=== PATIENT | female | born 1925 | race Caucasian/White ===

== ENCOUNTER 2016-04-29 11:17 | Emergency (ER) | payer MEDICARE ==
[~2016-04-29] VITALS: Ht 157.5 cm; Wt 56.0 kg
[~2016-04-29 11:17] MED LIST: ALPR.5 PO; ASPI325T TUBE; CARV3.12 PO; CELE20TA PO; CHERSYP2 PO; LEVO100T5 PO; LIPI10TA PO; PRED10 PO; TELM20 PO; TRAM50TA PO; VENTAER INH
[2016-04-29 12:09] VITALS: BP 162/87; PULSE 77; RESP 20; TEMP 99; O2SAT 94
[2016-04-29] MEDS ORDERED: ALBU.5I NEB (12:16)
--- NOTE | 2016-04-29 12:27 | PD ---
HPI Chief Complaint: Respiratory Symptoms Time Seen by Provider: 12:13 Travel History International Travel<30 days: No Contact w/Intl Traveler<30days: No Traveled to known affect area: No History of Present Illness HPI The patient is a 89-year-old female who presents to the emergency department for shortness of breath. The patient's family member states the patient has had shortness of breath intermittently since Thanksgiving time. The patient has been seen in the emergency department twice for her congestive heart failure and COPD. The patient is currently on prednisone 40 mg a day with nebulizers at home. The daughter stated there was mild swelling of the lower extremities bilaterally this morning and was concerned about the patient' s breathing. The family member states when the patient awakened this morning she was short of breath, she was then given her prednisone and nebulizers, and her shortness of breath did improve after 2 hours of duration. They called their load dispatcher several days ago and were prescribed Lasix 40 mg per day, however, the daughter was unsure if this was the correct dose. The patient does have a history of CHF and COPD and sees Dr. Carranza as her load dispatcher and Dr. Balbuena as her jewel hole driller. The patient states her breathing has improved, denies any chest pain, nausea, vomiting, or abdominal pain. PFSH Past Medical History Hx Anticoagulant Therapy: Yes (asa 81mg) Depression: Yes Cancer: No Cardiovascular Problems: Yes (htn on meds) COPD: Yes Diabetes: No Diminished Hearing: No Endocrine: Yes Gastrointestinal Disorders: No Glaucoma: No Genitourinary: No Hepatitis: No Hiatal Hernia: No Hypertension: Yes Implanted Vascular Access Dvce: No Medical other: Yes (SINUSITIS) Musculoskeletal: No Neurologic: No Psychiatric: Yes Reproductive: No Respiratory: Yes (copd, chf) Immunizations Current: Yes Pneumonia: Yes Thyroid Disease: Yes (Hypo-) ?: Not Menopausal: Yes Past Surgical History Abdominal Surgery: No Cardiac Surgery: No Ear Surgery: No Endocrine Surgery: No Eye Surgery: Yes Genitourinary Surgery: No Gynecologic Surgery: No Neurologic Surgery: No Oral Surgery: No Pacemaker: No Thoracic Surgery: Yes (thoracentesis) Other Surgery: Yes Social History Alcohol Use: No (Rarely) Tobacco Use: No Substance Use: No Allergies-Medications (Allergen,Severity, Reaction): Coded Allergies: No Known Allergies (Verified , 04/29/16) Reported Meds & Prescriptions Reported Meds & Active Scripts Active Aspirin 325 Mg Tab 325 Mg TUBE DAILY Reported Albuterol Neb (Albuterol Sulfate) 2.5 Mg/0.5 Ml Neb 2.5 Mg NEB Q4HR NEB PRN Note: The Albuterol Sulfate Inhalation Solution is concentrated and must be diluted. Read complete instructions carefully before using. Carvedilol 3.125 Mg Tab 3.125 Mg PO DAILY PRN Lipitor (Atorvastatin Calcium) 10 Mg Tab 10 Mg PO DAILY Cheratussin AC Liq (Guaifenesin-Codeine Liq) 100-10 Mg/5 Ml Syrp 5 Ml PO Q4H PRN Do not exceed 6 doses/24 hrs. Tramadol (Tramadol HCl) 50 Mg Tab 50 Mg PO Q4H PRN Xanax (Alprazolam) 0.5 Mg Tab 0.5 Mg PO Q6H PRN Ventolin Hfa 18 GM Inh (Albuterol Sulfate) 90 Mcg/Act Aer 2 Puff INH Q4-6H PRN Prednisone 10 Mg Tab 10 Mg PO DAILY Levothyroxine (Levothyroxine Sodium) 100 Mcg Tab 100 Mcg PO DAILY Celexa (Citalopram Hydrobromide) 20 Mg Tab 20 Mg PO DAILY Micardis (Telmisartan) 20 Mg Tab 12.5 Mg PO DAILY Review of Systems Except as stated in HPI: all other systems reviewed are Neg General / Constitutional: No: Fever, Chills HENT: No: Lightheadedness Cardiovascular: No: Chest Pain or Discomfort Respiratory: Positive: Cough, Shortness of Breath, Orthopnea Gastrointestinal: No: Nausea, Vomiting, Abdominal Pain Musculoskeletal: Positive: Edema Neurologic: No: Dizziness Physical Exam Narrative GENERAL: Awake, alert, pleasant 89-year-old female who appears her stated age and is in no obvious respiratory distress. SKIN: Warm and dry. HEAD: Atraumatic. Normocephalic. EYES: No injection or drainage. ENT: No nasal bleeding or discharge. Mucous membranes pink and moist. NECK: Trachea midline. No JVD. CARDIOVASCULAR: Regular rate and rhythm. No murmur appreciated. Heart rate in the 70s. RESPIRATORY: No accessory muscle use. Respiratory rate of 20, scattered wheezes and rhonchi bilaterally. GASTROINTESTINAL: Abdomen soft, non-tender, nondistended. No rebound tenderness. MUSCULOSKELETAL: No obvious deformities. No clubbing. No cyanosis. Trace edema bilaterally. NEUROLOGICAL: Awake and alert. No obvious cranial nerve deficits. Motor grossly within normal limits. Normal speech. PSYCHIATRIC: Appropriate mood and affect; insight and judgment normal. Data Data Last Documented VS Vital Signs Date Time Temp Pulse Resp B/P Pulse Ox O2 Delivery O2 Flow Rate FiO2 04/29/16 12:45 95 04/29/16 12:11 77 20 Room Air 04/29/16 12:09 99.0 162/87 Orders Complete Blood Count With Diff (04/29/16 12:21) Basic Metabolic Panel (Bmp) (04/29/16 12:21) B-Type Natriuretic Peptide (04/29/16 12:21) Magnesium (Mg) (04/29/16 12:21) Iv Access Insert/Monitor (04/29/16 12:21) Electrocardiogram (04/29/16 12:21) Ecg Monitoring (04/29/16 12:21) Oximetry (04/29/16 12:21) Oxygen Administration (04/29/16 12:21) Chest, Single Ap (04/29/16 12:21) Sodium Chloride 0.9% Flush (Ns Flush) (04/29/16 12:30) Albuterol-Ipratropium Neb (Duoneb Neb) (04/29/16 12:30) Furosemide Inj (Lasix Inj) (04/29/16 12:30) Creatine Kinase (Cpk) (04/29/16 12:21) Troponin I (04/29/16 12:21) Labs Laboratory Tests Test 04/29/16 12:35 White Blood Count 9.1 TH/MM3 Red Blood Count 3.85 MIL/MM3 Hemoglobin 11.4 GM/DL Hematocrit 34.7 % Mean Corpuscular Volume 90.1 FL Mean Corpuscular Hemoglobin 29.6 PG Mean Corpuscular Hemoglobin 32.8 % Concent Red Cell Distribution Width 15.1 % Platelet Count 204 TH/MM3 Mean Platelet Volume 7.9 FL Neutrophils (%) (Auto) 84.3 % Lymphocytes (%) (Auto) 9.5 % Monocytes (%) (Auto) 3.7 % Eosinophils (%) (Auto) 0.7 % Basophils (%) (Auto) 1.8 % Neutrophils # (Auto) 7.6 TH/MM3 Lymphocytes # (Auto) 0.9 TH/MM3 Monocytes # (Auto) 0.3 TH/MM3 Eosinophils # (Auto) 0.1 TH/MM3 Basophils # (Auto) 0.2 TH/MM3 CBC Comment DIFF FINAL Differential Comment Sodium Level 140 MEQ/L Potassium Level 4.2 MEQ/L Chloride Level 103 MEQ/L Carbon Dioxide Level 27.6 MEQ/L Anion Gap 9 MEQ/L Blood Urea Nitrogen 26 MG/DL Creatinine 1.20 MG/DL Estimat Glomerular Filtration 42 ML/MIN Rate Random Glucose 121 MG/DL Calcium Level 8.6 MG/DL Magnesium Level 2.4 MG/DL Total Creatine Kinase 82 U/L Troponin I 0.45 NG/ML B-Type Natriuretic Peptide 672 PG/ML MDM Medical Decision Making Medical Screen Exam Complete: Yes Emergency Medical Condition: Yes Medical Record Reviewed: Yes Interpretation(s) EKG reveals normal sinus rhythm with a rate of 75. Nonspecific ST changes. No significant changes when compared to EKG performed March 29, 2016. Chest x-ray reveals cardiomegaly, questionable consolidation left lower lobe, small left pleural effusion, no significant change occurred when compared to chest x-ray performed March 29, 2016. Laboratory Tests Test 04/29/16 12:35 White Blood Count 9.1 TH/MM3 Red Blood Count 3.85 MIL/MM3 Hemoglobin 11.4 GM/DL Hematocrit 34.7 % Mean Corpuscular Volume 90.1 FL Mean Corpuscular Hemoglobin 29.6 PG Mean Corpuscular Hemoglobin 32.8 % Concent Red Cell Distribution Width 15.1 % Platelet Count 204 TH/MM3 Mean Platelet Volume 7.9 FL Neutrophils (%) (Auto) 84.3 % Lymphocytes (%) (Auto) 9.5 % Monocytes (%) (Auto) 3.7 % Eosinophils (%) (Auto) 0.7 % Basophils (%) (Auto) 1.8 % Neutrophils # (Auto) 7.6 TH/MM3 Lymphocytes # (Auto) 0.9 TH/MM3 Monocytes # (Auto) 0.3 TH/MM3 Eosinophils # (Auto) 0.1 TH/MM3 Basophils # (Auto) 0.2 TH/MM3 CBC Comment DIFF FINAL Differential Comment Sodium Level 140 MEQ/L Potassium Level 4.2 MEQ/L Chloride Level 103 MEQ/L Carbon Dioxide Level 27.6 MEQ/L Anion Gap 9 MEQ/L Blood Urea Nitrogen 26 MG/DL Creatinine 1.20 MG/DL Estimat Glomerular Filtration 42 ML/MIN Rate Random Glucose 121 MG/DL Calcium Level 8.6 MG/DL Magnesium Level 2.4 MG/DL Total Creatine Kinase 82 U/L Troponin I 0.45 NG/ML B-Type Natriuretic Peptide 672 PG/ML Differential Diagnosis Differential diagnosis includes CHF, pleural effusion, COPD, bronchitis, pneumonia, pleural effusion, pulmonary embolism, acute coronary syndrome. Narrative Course IV was established, labs were drawn and sent, and the patient was placed on cardiac telemetry monitoring and continuous pulse oximetry monitoring. EKG was ordered and interpreted. Chest x-ray was ordered. The patient was administered Lasix 20 mg intravenously and DuoNeb 1. BNP was sent to lab. BNP was elevated at 672. Troponin was elevated 0.45. The patient had a previous catheterization that was performed on April 01, 2016 which revealed angiographically mild three-vessel coronary disease and a right dominant system with mild cardiomyopathy a 45%. Recommended medical management of coronary artery disease in cardiac risk factors and medical management of cardiomyopathy with cardiac risk factor modification. There is no stents placed at that time. The patient had anywhere from 10-30% mild diffuse disease. The patient's troponins were elevated at that time is 0.17, slightly more elevated today, the patient has no chest pain. The patient's only complaint is shortness of breath with orthopnea. Therefore, I'll call was placed the patient's on-call jewel hole driller, Dr. Balbuena, who is out of town. Therefore, I'll call was placed to the on-call jewel hole driller for Dr. Balbuena. However, Dr. Balbuena is out of town on Friday. Dr. Infante was on-call. I had a discussion with the family, they would prefer to take the patient home. The patient was reassessed and her symptoms had improved. The patient's troponin is mildly elevated, however, she does have elevated creatinine and has CHF. The patient did have a cardiac catheterization that was performed in March which revealed mild disease of 20-30% stenosis, but there is no stent placement. I will place the patient on Imdur and Lasix every other day, the family states the patient has an appointment with her load dispatcher on Friday and they can get her into see her jewel hole driller on Friday or . I advised him to return if symptoms worsen or progress. Diagnosis Primary Impression: Congestive heart failure Qualified Code: I50.9 - Acute on chronic congestive heart failure, unspecified congestive heart failure type Additional Impression: Elevated troponin Patient Instructions: General Instructions Additional Instructions: Continue a daily aspirin. Imdur and Lasix as directed. Follow-up with her load dispatcher and jewel hole driller this week. Return if symptoms worsen or progress. Med/Other Pt SpecificInfo: Prescription(s) given Scripts Isosorbide Mononitrate 10 Mg Tab10 Mg PO BID #60 TAB Take 2 doses 7 hours apart. Prov:Xiang Escamilla MD 04/29/16 Furosemide (Lasix)20 Mg Tab20 Mg PO EVERY OTHER DAY #10 TAB Ref 0 Prov:Xiang Escamilla MD 04/29/16 Disposition: 01 DISCHARGE HOME Condition: Stable Xiang Esacmilla MD Apr 29, 2016 12:27
[2016-04-29] MEDS ORDERED: FUROSEMIDE 20 MG/2 ML VIAL IVP ONE (12:30)
[2016-04-29] MEDS ORDERED: SODIUM CHLORIDE 0.9% FLUSH 5 ML FLUSH IVF PRN (12:30)
[2016-04-29] MEDS ORDERED: RESP: ALBUTEROL 2.5 MG/IPRATROPIUM 0.5 MG NEB (SCH) INH ONE (12:30)
[2016-04-29 12:42] LABS: AUTOMATED NEUTROPHIL # 7.6 TH/MM3 (1.8-7.7); BASOPHIL # 0.2 TH/MM3 (0-0.2); BASOPHIL % 1.8 % (0.0-2.0); EOSINOPHIL # 0.1 TH/MM3 (0-0.4); EOSINOPHIL % 0.7 % (0.0-4.0); HEMATOCRIT 34.7 % (35.0-46.0); HEMO FLAGS DIFF FINAL; LYMPH % 9.5 % (9.0-44.0); LYMPHOCYTE # 0.9 TH/MM3 (1.0-4.8); MEAN CELL VOLUME 90.1 FL (80.0-100.0); MEAN CORPUSCULAR HEMOGLOBIN 29.6 PG (27.0-34.0); MEAN CORPUSCULAR HGB CONC 32.8 % (32.0-36.0); MONO % 3.7 % (0.0-8.0); NEUT % 84.3 % (16.0-70.0); PLATELET COUNT 204 TH/MM3 (150-450); RED BLOOD COUNT 3.85 MIL/MM3 (4.00-5.30); RED CELL DISTRIBUTION WIDTH 15.1 % (11.6-17.2); WHITE BLOOD COUNT 9.1 TH/MM3 (4.0-11.0)
[2016-04-29 12:45] VITALS: O2SAT 95
[2016-04-29 12:51] LABS: POTASSIUM 4.2 MEQ/L (3.5-5.1)
[2016-04-29 12:54] LABS: BICARBONATE 27.6 MEQ/L (21.0-32.0); MAGNESIUM 2.4 MG/DL (1.5-2.5)
--- NOTE | 2016-04-29 13:02 | RADHPO ---
EXAM DATE/TIME: 04/29/2016 12:45 [facility] COMPARISON: CT THORAX W/O CONTRAST, January 15, 2016, 21:01. CHEST PA & LAT, March 29, 2016, 17:25. INDICATIONS : Short of breath and wheezing. MEDICAL HISTORY : None. SURGICAL HISTORY : None. ENCOUNTER: Initial ACUITY: 2 days PAIN SCORE: 3/10 LOCATION: Bilateral chest FINDINGS: There is cardiomegaly consolidation left lower lobe. Aortic calcification is seen in degenerative mariela nges of the spine are present. Small left pleural effusion. CONCLUSION: No significant change has occurred. Rodrigue Patel MD on April 29, 2016 at 13:00 Board Certified Radiologist. This report was verified electronically.
[2016-04-29] MEDS ORDERED: FURO1TAB62 PO (14:14)
[2016-04-29] MEDS ORDERED: ISOS10TA3 PO (14:14)
[2016-04-29] MEDS ORDERED: ASPIRIN 325 MG TAB PO ONE (14:15)
[2016-04-29] MEDS ORDERED: ISOSORBIDE MONONITRATE 30 MG TAB PO ONE (14:15)
[2016-04-29] MEDS ORDERED: ISOS30TA3 PO (14:17)
[2016-04-29 14:45] VITALS: BP 137/79
--- NOTE | 2016-05-01 00:02 | EKG ---
Date Performed: 04/29/2016 Time Performed: 12:30:28 PTAGE: 89 years EKG: Sinus rhythm Inferior/lateral ST-T changes are nonspecific Borderline ECG PREVIOUS TRACING : 04/27/2016 08.25 DOCTOR: Issa Pedersen Interpretating Date/Time 04/30/2016 23:51:49
[2016-05-17] MEDS ORDERED: WHEEMIS3 (14:42)
[2016-05-25] MEDS ORDERED: PRED10 PO (08:05)
[2016-05-25] MEDS ORDERED: LIPI10TA PO (08:05)
[2016-05-25] MEDS ORDERED: ISOS30TA3 PO (08:05)
[2016-05-25] MEDS ORDERED: COZA50TA PO (08:05)
[2016-05-25] MEDS ORDERED: FURO20TA PO (08:05)
[2016-05-25] MEDS ORDERED: LEVO.05 PO (08:05)
[2016-05-25] MEDS ORDERED: CELE20TA PO (08:05)
[2016-05-28] MEDS ORDERED: POTA-243 PO (12:19)
[2016-05-28] MEDS ORDERED: APIX2.5T PO (12:19)
[2016-05-29] MEDS ORDERED: SYMB80AE INH (09:45)
[2016-05-29] MEDS ORDERED: IPRASOL NEB (09:45)
== END 2016-04-29 15:09 | disposition home or self-care (01) ==
LOC: PHED 11:17
DX: I50.9 Heart failure, unspecified (principal); R74.8 Abnormal levels of other serum enzymes
CPT/HCPCS: 71010; 80048; 82550; 83735; 83880; 84484; 85025; 93005; 94664; 96374; 99285; J1940

== ENCOUNTER 2016-05-01 09:18 | Inpatient (IN) | payer MEDICARE ==
[~2016-05-01] VITALS: Ht 152.4 cm; Wt 62.8 kg
[2016-05-01] VITALS (9 sets, daily range): BP systolic 116–182; BP diastolic 64–94; PULSE 77–112; RESP 18–28; TEMP 97.6–102.4; O2SAT 91–96
[~2016-05-01 09:18] MED LIST changes: +ALBU.5I NEB; +FURO1TAB62 PO; +ISOS10TA3 PO; +ISOS30TA3 PO
[2016-05-01] MEDS ORDERED: CEFEPIME INJ 2,000 MG in SODIUM CHLORIDE 0.9% INJ 100 ML IV STA (09:40)
[2016-05-01] MEDS ORDERED: AZITHROMYCIN INJ 500 MG in SODIUM CHLOR 0.9% 250 ML INJ 250 ML IV STA (09:40)
[2016-05-01] MEDS ORDERED: methylPREDNISolone SOD SUCC 125 MG/2 ML VIAL IVP ONE (09:45)
--- NOTE | 2016-05-01 09:55 | PD ---
HPI Chief Complaint: Respiratory Symptoms Time Seen by Provider: 09:30 Travel History International Travel<30 days: No Contact w/Intl Traveler<30days: No Traveled to known affect area: No History of Present Illness HPI 89 year-old woman brought in by her family for progressive weakness, difficulty breathing. She has a history of COPD hypertension hypothyroidism. She was admitted March 29 with shallow breathing and had an elevated troponin at a heart catheterization done that showed mild cardiomyopathy, 45%, and mild coronary artery disease. Since that time she's had progressive worsening symptoms including trouble breathing. She was seen in the emergency department twice on April 27April 29 2 days ago. During that time she did have an elevated troponin. Discussed this with cardiology, offered admission, both those likely related to volume overload. She is placed on Imdur and Lasix. Tiffany nguyen is been giving her some Lasix, maybe a half dose each day. They state that since he was seen in the emergency department 2 days ago she's had progressive weakness. She normally is able to ambulate without difficulty, and mostly care for herself. Her substation manager today she's not been able to get out of bed, she is had stool and urinary incontinence which is not common for her. Confused. She had times either can't or won't answer her either due to weakness or confusion. They state her breathing is been about the same, unchanged since she was seen in the emergency department. She continues on prednisone. I don't think she is on any antibiotics now. She is getting bronchodilators. History Past Medical History Narrative Medical Hypertension COPD Cardiomyopathy/CHF, EF 45% Depression and anxiety Hypothyroidism Mild atherosclerotic cardiovascular disease Menopausal: Yes Social History Alcohol Use: No (Rarely) Tobacco Use: No Allergies-Medications (Allergen,Severity, Reaction): Coded Allergies: No Known Allergies (Verified , 05/01/16) Reported Meds & Prescriptions Reported Meds & Active Scripts Active Isosorbide Mononitrate ER (Isosorbide Mononitrate) 30 Mg Jacky 30 Mg PO BID Lasix (Furosemide) 20 Mg Tab 20 Mg PO EVERY OTHER DAY Aspirin 325 Mg Tab 325 Mg TUBE DAILY Reported [telmi] Albuterol Neb (Albuterol Sulfate) 2.5 Mg/0.5 Ml Neb 2.5 Mg NEB Q4HR NEB PRN Note: The Albuterol Sulfate Inhalation Solution is concentrated and must be diluted. Read complete instructions carefully before using. Carvedilol 3.125 Mg Tab 3.125 Mg PO DAILY PRN Lipitor (Atorvastatin Calcium) 10 Mg Tab 10 Mg PO DAILY Cheratussin AC Liq (Guaifenesin-Codeine Liq) 100-10 Mg/5 Ml Syrp 5 Ml PO Q4H PRN Do not exceed 6 doses/24 hrs. Tramadol (Tramadol HCl) 50 Mg Tab 50 Mg PO Q4H PRN Xanax (Alprazolam) 0.5 Mg Tab 0.5 Mg PO Q6H PRN Ventolin Hfa 18 GM Inh (Albuterol Sulfate) 90 Mcg/Act Aer 2 Puff INH Q4-6H PRN Prednisone 10 Mg Tab 10 Mg PO DAILY Levothyroxine (Levothyroxine Sodium) 100 Mcg Tab 50 Mcg PO DAILY Celexa (Citalopram Hydrobromide) 20 Mg Tab 20 Mg PO DAILY Micardis (Telmisartan) 20 Mg Tab 80 Mg PO DAILY Review of Systems Except as stated in HPI: all other systems reviewed are Neg Physical Exam Narrative GENERAL: Ill-appearing 89 year-old woman, tachypnea, confused. SKIN: Warm and flushed. Normal turgor. HEAD: Atraumatic. Normocephalic. EYES: Pupils equal and round. No scleral icterus. No injection or drainage. ENT: No nasal bleeding or discharge. Mucous membranes pink and moist. NECK: Trachea midline. No obvious JVD. CARDIOVASCULAR: Regular rate and rhythm. No murmur appreciated. RESPIRATORY: Tachypnea. Lungs with coarse Rales throughout the posterior lung conner, worse on the left. GASTROINTESTINAL: Abdomen soft, non-tender, nondistended. Hepatic and splenic margins not palpable. MUSCULOSKELETAL: No obvious deformities. No edema. NEUROLOGICAL: Awake, decreased alertness, confused. No obvious cranial nerve deficits. Motor grossly within normal limits. Normal speech. Data Data Last Documented VS Vital Signs Date Time Temp Pulse Resp B/P Pulse Ox O2 Delivery O2 Flow Rate FiO2 05/01/16 09:51 94 18 171/86 96 2 05/01/16 09:51 Nasal Cannula 05/01/16 09:22 102.4 Orders Complete Blood Count With Diff (05/01/16 09:40) Comprehensive Metabolic Panel (05/01/16 09:40) Prothrombin Time / Inr (Pt) (05/01/16 09:40) Act Partial Throm Time (Ptt) (05/01/16 09:40) Lactic Acid Sepsis Protocol (05/01/16 09:40) Magnesium (Mg) (05/01/16 09:40) Phosphorus (Po4) (05/01/16 09:40) Lipase (05/01/16 09:40) Troponin I (05/01/16 09:40) Urinalysis - C+S If Indicated (05/01/16 09:40) Influenzae A/B Antigen (05/01/16 09:40) Blood Culture (05/01/16 09:40) Chest, Single Ap (05/01/16 09:40) Blood Glucose (05/01/16 09:40) Ecg Monitoring (05/01/16 09:40) Iv Access Insert/Monitor (05/01/16 09:40) Oximetry (05/01/16 09:40) Oxygen Administration (05/01/16 09:40) Cefepime Inj (Maxipime Inj) (05/01/16 09:40) Azithromycin Inj (Zithromax Inj) (05/01/16 09:40) B-Type Natriuretic Peptide (05/01/16 09:45) Methylprednisolone So Succ Inj (Solumedr (05/01/16 09:45) Albuterol-Ipratropium Neb (Duoneb Neb) (05/01/16 09:45) Sodium Chlorid 0.9% 500 Ml Inj (Ns 500 M (05/01/16 10:00) Sodium Chlorid 0.9% 500 Ml Inj (Ns 500 M (05/01/16 10:30) Urine Culture (05/01/16 10:10) Ct Thorax/ Chest W Iv Contrast (05/01/16 ) Labs Laboratory Tests Test 05/01/16 05/01/16 05/01/16 09:40 09:49 10:10 White Blood Count 11.1 TH/MM3 Red Blood Count 4.12 MIL/MM3 Hemoglobin 12.4 GM/DL Hematocrit 37.0 % Mean Corpuscular Volume 89.8 FL Mean Corpuscular Hemoglobin 30.0 PG Mean Corpuscular Hemoglobin 33.4 % Concent Red Cell Distribution Width 14.9 % Platelet Count 190 TH/MM3 Mean Platelet Volume 8.1 FL Neutrophils (%) (Auto) 82.8 % Lymphocytes (%) (Auto) 8.2 % Monocytes (%) (Auto) 5.8 % Eosinophils (%) (Auto) 0.1 % Basophils (%) (Auto) 3.1 % Neutrophils # (Auto) 9.3 TH/MM3 Lymphocytes # (Auto) 0.9 TH/MM3 Monocytes # (Auto) 0.6 TH/MM3 Eosinophils # (Auto) 0.0 TH/MM3 Basophils # (Auto) 0.3 TH/MM3 CBC Comment DIFF FINAL Differential Comment Prothrombin Time 10.9 SEC Prothromb Time International 1.0 RATIO Ratio Activated Partial 24.4 SEC Thromboplast Time Sodium Level 137 MEQ/L Potassium Level 3.9 MEQ/L Chloride Level 96 MEQ/L Carbon Dioxide Level 30.2 MEQ/L Anion Gap 11 MEQ/L Blood Urea Nitrogen 33 MG/DL Creatinine 1.50 MG/DL Estimat Glomerular Filtration 33 ML/MIN Rate Random Glucose 131 MG/DL Calcium Level 8.2 MG/DL Phosphorus Level 2.0 MG/DL Magnesium Level 2.3 MG/DL Total Bilirubin 1.0 MG/DL Aspartate Amino Transf 13 U/L (AST/SGOT) Alanine Aminotransferase 18 U/L (ALT/SGPT) Alkaline Phosphatase 57 U/L Troponin I 0.09 NG/ML B-Type Natriuretic Peptide 235 PG/ML Total Protein 8.0 GM/DL Albumin 3.1 GM/DL Lipase 64 U/L Lactic Acid Level 1.8 mmol/L Urine Collection Type CATH Urine Color YELLOW Urine Turbidity CLEAR Urine pH 6.5 Urine Specific [place] 1.018 Urine Protein TRACE mg/dL Urine Glucose (UA) NEG mg/dL Urine Ketones NEG mg/dL Urine Occult Blood SMALL Urine Nitrite NEG Urine Bilirubin NEG Urine Leukocyte Esterase NEG Urine RBC 4-9 /hpf Urine WBC 0-2 /hpf Urine Squamous Epithelial > 8 /hpf Cells Urine Transitional Epithelial 6-8 /hpf Cells Urine Bacteria OCC /hpf Microscopic Urinalysis Comment CATH-CULTURE IND Urine Collection Time 10:10 MDM Medical Decision Making Medical Screen Exam Complete: Yes Emergency Medical Condition: Yes Interpretation(s) My review of EKG: Sinus tachycardia at a rate of 104, lateral ST depressions in suggest ischemia little bit of elevation in V1. I am unable to access the old EKGs for comparison. Previous read states some nonspecific inferior lateral changes. LABS: CBC remarkable for mild leukocytosis. CMP remarkable for mildly elevated BUN/creatinine Troponin 0.09 BNP 235 Lactate 1.8 Lipase normal Coags unremarkable UA remarkable for mild hematuria. Chest x-ray: Left lung infiltrate/mass, unchanged. Differential Diagnosis Sepsis, pneumonia, flu, volume overload, NH, other Narrative Course Medical decision making INITIAL: Is an 89 year-old woman presents to the emergency department, critically ill with fever tachycardia tachypnea suggestive of sepsis and pneumonia, with an ischemic-looking EKG and a history of elevated troponins seemingly related to either nonocclusive CAD or cardiomyopathy, and unclear volume status. Given the concern for sepsis, will try a small fluid bolus of 500 mL, Antibiotics for healthcare associated pneumonia, x-ray, labs, reassess. FINAL: Labs EKG and chest x-ray are done. She has this persistent left midlung infiltrate is fairly dense. She had a CT scan of her chest back in December. This is been there for some time and it raises possibility of a mass. We'll repeat CT of the chest with IV contrast to evaluate for potential mass, we'll plan on admission for treatment for sepsis and pneumonia. Cautious fluid boluses of been given 500 mL for the time. Patient's history of cardiomyopathy. I spoke with the family, for the past decade or so she's had trouble with this left-sided lung mass or infiltrate, its been waxing and waning. It had it evaluated. He had a PET scan that didn't show any increased uptake. They decided not to have it biopsied given her age. We'll hold off on the CT given the fact that this is a pre-existing condition. Diagnosis Primary Impression: Sepsis Qualified Code: A41.9 - Sepsis, due to unspecified organism Additional Impression: PNA (pneumonia) Qualified Code: J18.9 - Pneumonia of left lung due to infectious organism, unspecified part of lung Admitting Information Admitting Physician Requests: Admit Pranav Cavazos MD May 01, 2016 09:55
[2016-05-01 09:57] LABS: AUTOMATED NEUTROPHIL # 9.3 TH/MM3 (1.8-7.7); BASOPHIL # 0.3 TH/MM3 (0-0.2); BASOPHIL % 3.1 % (0.0-2.0); EOSINOPHIL % 0.1 % (0.0-4.0); LYMPH % 8.2 % (9.0-44.0); LYMPHOCYTE # 0.9 TH/MM3 (1.0-4.8); MEAN CELL VOLUME 89.8 FL (80.0-100.0); MEAN CORPUSCULAR HGB CONC 33.4 % (32.0-36.0); MONO % 5.8 % (0.0-8.0); NEUT % 82.8 % (16.0-70.0); PLATELET COUNT 190 TH/MM3 (150-450); RED BLOOD COUNT 4.12 MIL/MM3 (4.00-5.30); RED CELL DISTRIBUTION WIDTH 14.9 % (11.6-17.2); WHITE BLOOD COUNT 11.1 TH/MM3 (4.0-11.0)
[2016-05-01] MEDS: RESP: ALBUTEROL 2.5 MG/IPRATROPIUM 0.5 MG NEB (SCH) INH (09:59)
[2016-05-01] MEDS ORDERED: SODIUM CHLORID 0.9% 500 ML INJ 500 ML IV ONE ×2 (10:00→10:30)
[2016-05-01 10:01] LABS: HEMO FLAGS DIFF FINAL
[2016-05-01 10:12] LABS: APTT (PATIENT) 24.4 SEC (24.3-30.1); PROTHROMBIN TIME - PATIENT 10.9 SEC (9.8-11.6)
[2016-05-01 10:14] LABS: CHLORIDE 96 MEQ/L (98-107); POTASSIUM 3.9 MEQ/L (3.5-5.1); SODIUM (NA) 137 MEQ/L (136-145)
[2016-05-01 10:16] LABS: ANION GAP 11 MEQ/L (5-15); BICARBONATE 30.2 MEQ/L (21.0-32.0); MAGNESIUM 2.3 MG/DL (1.5-2.5)
[2016-05-01 10:19] LABS: AST (GOT) 13 U/L (15-37); GLOMERULAR FILTRATION RATE 33 ML/MIN (>89)
[2016-05-01 10:21] LABS: BLOOD, URINE SMALL (NEG); GLUCOSE,URINE NEG (NEG); KETONE, URINE NEG (NEG); NITRITE,URINE NEG (NEG); PH, URINE 6.5 (5.0-8.5)
[2016-05-01 10:22] LABS: ALKALINE PHOSPHATASE 57 U/L (45-117)
--- NOTE | 2016-05-01 10:27 | RADHPO ---
EXAM DATE/TIME: 05/01/2016 10:17 [facility] COMPARISON: CT THORAX W/O CONTRAST, January 15, 2016, 21:01. CHEST SINGLE AP, April 29, 2016, 12:45. INDICATIONS : Short of breath. MEDICAL HISTORY : Hypertension. Chronic obstructive pulmonary disease. SURGICAL HISTORY : None. ENCOUNTER: Initial ACUITY: 2 days PAIN SCORE: 0/10 LOCATION: Bilateral chest FINDINGS: Left chest infiltrate and/or mass is unchanged. Right lung is grossly clear. CONCLUSION: No significant change. Duncan Velasquez MD on May 01, 2016 at 10:24 Board Certified Radiologist. This report was verified electronically.
[2016-05-01 10:29] LABS: METHOD OF COLLECTION CATH; URINE COLOR YELLOW (YELLW/STRAW)
[2016-05-01 10:30] LABS: BACTERIA, URINE OCC /hpf; COMMENT (UR) CATH-CULTURE IND; CULTURE IF INDICATED CATH CULTURE IND; SQUAMOUS EPITHELIAL CELL URINE > 8 /hpf (0-5); WBC, URINE 0-2 /hpf (0-5)
[2016-05-01 10:31] LABS: ALT (GPT) 18 U/L (10-53)
[2016-05-01 10:32] LABS: BLOOD UREA NITROGEN 33 MG/DL (7-18)
[2016-05-01] MEDS ORDERED: [UNRECOGNIZED DRUG - OTHER] (10:40)
[2016-05-01] MEDS ORDERED: SODIUM CHLOR 0.9% 1000 ML INJ 1,000 ML IV SCH (10:51)
[2016-05-01] MEDS ORDERED: NALOXONE HCL 0.4 MG/ML AMP IV PRN (11:00)
[2016-05-01] MEDS ORDERED: ONDANSETRON HCL 4 MG/2 ML VIAL IVP PRN (11:00)
[2016-05-01] MEDS: HEPARIN SODIUM - SQ 10,000 UNITS/ML VIAL SQ SCH ×2 (11:30→23:38)
--- NOTE | 2016-05-01 17:00 | EKG ---
Date Performed: 05/01/2016 Time Performed: 09:29:42 PTAGE: 89 years EKG: Sinus tachycardia Nonspecific ST-T wave changes Abnormal ECG COMPARED TO PRIOR ELECTROCARDI OGRAM, Rate has increased and ST-T wave changes are more marked. PREVIOUS TRACING : 04/29/2016 12.30 DOCTOR: Omega Soni Interpretating Date/Time 05/01/2016 16:58:34
[2016-05-01] MEDS: CEFEPIME INJ 1,000 MG in SODIUM CHLORIDE 0.9% INJ 100 ML IV SCH (18:04)
[2016-05-01] MEDS: SODIUM CHLORIDE 0.9% FLUSH 5 ML FLUSH FLUSH SCH (21:48)
[2016-05-02] VITALS (11 sets, daily range): BP systolic 129–195; BP diastolic 80–99; PULSE 68–80; RESP 20; TEMP 96.2–97.2; O2SAT 94–98
[2016-05-02] MEDS: CEFEPIME INJ 1,000 MG in SODIUM CHLORIDE 0.9% INJ 100 ML IV SCH ×3 (02:38→16:33)
[2016-05-02 06:13] LABS: AUTOMATED NEUTROPHIL # 10.5 TH/MM3 (1.8-7.7); EOSINOPHIL % 0.1 % (0.0-4.0); HEMATOCRIT 32.4 % (35.0-46.0); LYMPH % 8.1 % (9.0-44.0); MEAN CORPUSCULAR HEMOGLOBIN 30.5 PG (27.0-34.0); MEAN CORPUSCULAR HGB CONC 34.3 % (32.0-36.0); MONO % 3.7 % (0.0-8.0); NEUT % 88.1 % (16.0-70.0); PLATELET COUNT 154 TH/MM3 (150-450); RED BLOOD COUNT 3.64 MIL/MM3 (4.00-5.30); RED CELL DISTRIBUTION WIDTH 14.6 % (11.6-17.2); WHITE BLOOD COUNT 11.9 TH/MM3 (4.0-11.0)
[2016-05-02 06:16] LABS: HEMO FLAGS DIFF FINAL
[2016-05-02 06:25] LABS: BICARBONATE 27.6 MEQ/L (21.0-32.0); POTASSIUM 3.7 MEQ/L (3.5-5.1)
--- NOTE | 2016-05-02 06:38 | RADHPO ---
EXAM DATE/TIME: 05/02/2016 06:04 [facility] COMPARISON: CHEST SINGLE AP, May 01, 2016, 10:17. CHEST PA & LAT, March 29, 2016, 17:25. INDICATIONS : Cough, chest congestion MEDICAL HISTORY : Hypertension. Chronic obstructive pulmonary disease. SURGICAL HISTORY : None. ENCOUNTER: Subsequent ACUITY: 3 days PAIN SCORE: 0/10 LOCATION: Bilateral chest FINDINGS: PA and lateral views of the chest show a small left pleural effusion with left lower lobe and to a le sser degree left upper lobe parenchymal consolidation. No significant change from the most recent esther or study. Heart is mildly enlarged. Aorta is calcified. CONCLUSION: Unchanged small left pleural effusion and left lung consolidation. Rm Connors Jr., MD on May 02, 2016 at 6:36 Board Certified Radiologist. This report was verified electronically.
[2016-05-02] MEDS ORDERED: traMADol HCL 50 MG TAB PO PRN (08:15)
[2016-05-02] MEDS ORDERED: ALBUTEROL SULFATE 90 MCG/ACT HFA 8 GM INHALER INH PRN (08:15)
[2016-05-02] MEDS ORDERED: CARVEDILOL 3.125 MG TAB PO PRN (08:15)
[2016-05-02] MEDS ORDERED: predniSONE 10 MG TAB PO SCH (09:00)
[2016-05-02] MEDS ORDERED: LOSARTAN 25 MG TAB PO SCH (09:00)
[2016-05-02] MEDS ORDERED: FUROSEMIDE 20 MG TAB PO SCH (09:00)
[2016-05-02] MEDS: SODIUM CHLORIDE 0.9% FLUSH 5 ML FLUSH FLUSH SCH ×2 (09:22→20:17)
[2016-05-02] MEDS: methylPREDNISolone SOD SUCC 125 MG/2 ML VIAL IV PUSH SCH ×3 (09:23→20:17)
[2016-05-02] MEDS: CITALOPRAM HYDROBROMIDE 20 MG TAB PO SCH (09:24)
[2016-05-02] MEDS: FUROSEMIDE 20 MG TAB PO SCH ×2 (09:24→16:32)
[2016-05-02] MEDS: guaiFENesin E.R. 600 MG TAB PO SCH ×2 (09:25→20:17)
[2016-05-02] MEDS: ASPIRIN 325 MG TAB TUBE SCH (09:25)
[2016-05-02] MEDS: ATORVASTATIN 10 MG TAB PO SCH (09:26)
--- NOTE | 2016-05-02 09:52 | MH ---
cc: SARABJIT BRYAN MD DATE OF ADMISSION: 05/01/2016 CHIEF COMPLAINT Cough, shortness of breath, wheezing for a week. HISTORY OF PRESENT ILLNESS This is an 89-year-old very pleasant female with past medical and surgical history significant for hypertension, COPD, cardiomyopathy, congestive heart failure, ejection fraction 45%, systolic heart failure, chronic depression, anxiety, hypothyroidism, coronary artery disease, history of anxiety, arthritis, hyperlipidemia, depression. She came to the ER at [facility] complaining of cough, congestion and getting progressively weak for he last one week and having shortness of breath. She was admitted recently on March 29 with shallow breathing and had elevated troponin and heart catheterization done that showed myopathy, 45% ejection fraction and mild coronary artery disease. Since that time she had progressively gotten worse in her symptoms including trouble breathing. She was also see in the ER on April 27 and also April 29, 2016, and during that time she did have elevated troponin. She is feeling weak and tired and also not able to perform activities of daily living. She was not able to get out of the bed and also had stool and urine incontinence which is not common for her. Other than that, she denies any chest pain, any nausea, vomiting or diarrhea, any black stool, any blood in the stool, any frequent or painful urination, burning on urination but generally states she feels weak and tired. Other than that, nothing significant. PAST MEDICAL AND SURGICAL HISTORY As dictated above. SOCIAL HISTORY Rarely drinks. Denies smoking. Denies drug abuse. Lives at home. FAMILY HISTORY Significant for a brother having lung cancer, of it. ALLERGIES No known drug allergies. MEDICATIONS 1. Isosorbide mononitrate 30 mg p.o. b.i.d. 2. Lasix 20 mg every other day. 3. Aspirin 325 mg p.o. daily. 4. Albuterol nebulization 1q. 4 hours. 5. Carvedilol 3.125 mg p.o. daily. 6. Lipitor 10 mg p.o. daily. 7. Guaifenesin twice per day. 8. Tramadol 50 mg p.o. q. 4 hours p.r.n. pain. 9. Xanax 0.5 mg p.o. q. 6 hours p.r.n. anxiety. 10. Ventolin HFA two puffs inhalation q. 6 hours. 11. Prednisone 10 mg p.o. daily. 12. Levothyroxine 50 mcg p.o. daily. 13. Citalopram 20 mg p.o. daily. 14. Micardis 80 mg p.o. daily. REVIEW OF SYSTEMS Positive for cough, shortness of breath, wheezing, feeling weak and tired generalized. All other review of systems are negative. PHYSICAL EXAMINATION GENERAL: This is an 89-year-old female sitting on the bed, not in any acute distress. VITAL SIGNS: Temperature is 96.8, heart rate 74, respirations 20, blood pressure 132/80, O2 saturation 96% at 2 liters nasal cannula. HEENT: Normocephalic, atraumatic. EOMI. PERRLA. Oral mucosa moist. NECK: Supple. No visible thyromegaly or neck mass. Trachea central. CVS: Regular rate and rhythm. RESPIRATORY: Bilateral wheezing, bilateral decreased air entry. ABDOMEN: Soft, nontender. Bowel sounds audible. EXTREMITIES: No cyanosis or clubbing. Full range of motion of all extremities. NEUROLOGIC: Awake, alert, oriented x 4. No focal deficit. SKIN: Warm and dry. PSYCHIATRIC: The patient is cooperative. Mood and affect is normal. LABORATORY DATA CBC is totally unremarkable except for a WBC count of 11.9 - high, hemoglobin 11.1 - low, hematocrit 32.4 - low. RBC count of 3.5 - low. Neutrophils 88.1 - high, lymphocytes 8.1 - low. BMP totally unremarkable except for a chloride of 96 - low, BUN 33 - high, creatinine 1.50 - high, glucose 131 - high, calcium 8.1 - low, phosphorus 2.0 - low, magnesium 2.3. LFTs are normal. Troponin I 0.09. Albumin 3.1, lipase 64 - low. All these labs were on 05/01/2016. On 05/02/2016 - Sodium 141, potassium 3.7, chloride 104, carbon dioxide 27.6, creatinine 1.0, BUN 30, GFR 52, glucose 153, lactic acid 1.8 on 05/01/2016. Cardiac enzymes done on 05/01/2016 - 0.07 and 0.05. BNP 235 - high. PT 10.9, INR 1.0, APTT 24.4. UA totally unremarkable except for occult blood small, 4-9 RBCs, more than 8 squamous epithelial cells. Blood cultures x 2 done. Negative so far. Influenza A and B negative. Urine culture done, pending, culture still pending. X-RAYS Chest x-ray was done which shows unchanged small left effusion and left lung consolidation. ASSESSMENT AND PLAN This is an 89-year-old female who came to the emergency room, diagnosed with shortness of breath most probably secondary to COPD exacerbation/pneumonia. 1. The patient is on Zithromax 500 mg IV 24 hours, cefepime 1 gram IV q. 8 hours. The patient also started on DuoNeb nebulization. I shall start the patient on Solu-Medrol 60 mg IV q. 6 hours. Pulmonary consulted. Further recommendations per Pulmonary. 2. History of congestive heart failure. Patient has chronic systolic heart failure, does not look like an acute decompensation. Patient's BNP is high. The patient is on Lasix 20 mg every other day. I will make it to 40 mg p.o. daily. 3. History of hyperlipidemia. Continue Lipitor 10 mg p.o. p.o. daily. 4. History of coronary artery disease. Continue home medication. 5. History of hypothyroidism. Continue the home medication. 6. History of hypertension. Continue the home medication. We will monitor blood pressure. 7. History of anxiety. Continue with Xanax 0.5 mg p.o. q. 6 hours p.r.n. anxiety. 8. History of arthritis. Continue with Tramadol. 9. DVT Prophylaxis. Heparin 5000 units subcutaneous q. 12 hours. 10. GI prophylaxis. Protonix 40 mg p.o. daily. We are going to manage the patient on a daily basis and make recommendations on a daily basis. Sarabjit Bryan MD EA/JUS /8:31 AM /8:43 AM
[2016-05-02] MEDS: LEVOTHYROXINE SODIUM 50 MCG TAB PO SCH (10:04)
[2016-05-02] MEDS: AZITHROMYCIN INJ 500 MG in SODIUM CHLOR 0.9% 250 ML INJ 250 ML IV SCH (10:05)
[2016-05-02] MEDS: HEPARIN SODIUM - SQ 10,000 UNITS/ML VIAL SQ SCH ×2 (10:05→23:04)
[2016-05-02] MEDS: LOSARTAN 50 MG TAB PO SCH (10:26)
[2016-05-02] MEDS: HYDROCHLOROTHIAZIDE 12.5 MG CAP PO SCH (10:26)
[2016-05-02] MEDS: ISOSORBIDE MONONITRATE 30 MG TAB PO SCH ×2 (12:08→20:17)
[2016-05-02] MEDS: RESP: ALBUTEROL 2.5 MG/3 ML NEB (PRN) INH ×2 (18:14→21:52)
[2016-05-02] MEDS: ALPRAZolam 0.5 MG TAB PO PRN (23:04)
--- NOTE | 2016-05-02 23:36 | MB ---
cc: Lexi LOMBARDI M.D., EJAZ MD DATE OF CONSULTATION 05/02/16 REASON FOR CONSULTATION COPD and wheezing. HISTORY OF PRESENT ILLNESS This is an 89-year-old white female who has had a past history of hypertension, CHF and COPD, was brought to the emergency room with a history of cough, persistent wheezing and shortness of breath. The patient has had a previous history for coronary artery disease and cardiac catheterization and has had an ejection fraction of 45%. She has been experiencing shortness of breath for at least a week and she was admitted this past month with a history of weakness and chest tightness and had a cardiac evaluation done at that time. This time, however, the patient has become more short of breath and unable to ambulate but denied any hemoptysis, fevers or chills or chest pain. She has lost weight and she has had no significant leg swelling. PAST HISTORY Past history has included history of cardiomyopathy and CHF and chronic depression and anxiety, history of hypothyroidism and hyperlipidemia. ALLERGIES No known drug allergies. HABITS The patient does not smoke but was exposed to secondhand smoke for over 30 years. Alcohol use occasional. FAMILY HISTORY Significant for lung cancer. MEDICATIONS List included: 1. Nebulized Albuterol solution q.i.d. 2. Lasix 20 milligrams every other day. 3. Coreg 3.125 milligrams b.i.d. 4. Prednisone 10 milligrams a day. 5. Levothyroxine 50 micrograms daily. 6. Citalopram 20 milligrams a day. 7. Micardis 80 milligrams daily. 8. Ventolin inhaler 2 puffs p.r.n. 9. Xanax 0.5 milligrams q. 6 p.r.n. 10. Lipitor 10 milligrams a day. 11. Isordil 30 milligrams b.i.d. REVIEW OF SYSTEMS Patient has had postnasal drip, cough, wheezing, chest congestion, orthopnea and she has had epigastric distress and reflux. No urinary symptoms. No leg or calf muscle pains but has some joint pains and depression with anxiety. PHYSICAL EXAMINATION GENERAL: This elderly averagely built white female who is pale, alert and moderately dyspneic and sitting upright. VITAL SIGNS: Blood pressure 130/60, pulse 80, respirations 22, temperature 98.2. HEENT: Head normocephalic. Pupils are reactive. Nasal mucosa injected. Throat was clear. NECK: Supple. No bruits or thyroid enlargement. CHEST: Equal movements. Expiratory wheezes scattered throughout both lung conner with prolonged expirations with occasional crackles at both lung bases. HEART: The heart sounds are regular, S1-S2. No murmur. No S3 gallop. ABDOMEN: Soft, protuberant. No masses or organomegaly or tenderness. Her bowel sounds are active. EXTREMITIES: Mild varicosities. No edema. Reflexes 1+ with no gross motor deficits. Cranial nerves grossly intact. RECTAL: Exam is deferred. SKIN: No lesions. IMPRESSION 1. COPD with acute exacerbation. 2. Asthmatic bronchitis. 3. Cardiomyopathy and systolic heart failure. 4. Hypothyroidism. 5. Hyperlipidemia. 6. Left basilar pneumonia with effusion. PLAN The patient has been placed on 2 liters of oxygen nasal cannula. She also has been placed on nebulized DuoNeb solution q.i.d. and she will continue with cefepime 1 gram IV every 8 hours and Zithromax 500 milligrams IV daily, Solu-Medrol at 60 milligrams IV q. 6. Bedside pulmonary function study to be done and we will also start her on inhaled steroid including Breo Ellipta 100 micrograms 1 puff daily. Continue with her regular meds and the Xanax 0.5 milligrams as needed for anxiety attacks. A CT scan of the chest will be done to evaluate a left lower lung consolidation. Thank you Dr. Sarabjit Monroe for this consultation. MD JORDAN Baca/DONITA /11:02 PM /11:18 PM
[2016-05-03] VITALS (10 sets, daily range): BP systolic 121–157; BP diastolic 68–85; PULSE 58–66; RESP 20–24; TEMP 95.6–97.3; O2SAT 94–100
[2016-05-03] MEDS: methylPREDNISolone SOD SUCC 125 MG/2 ML VIAL IV PUSH SCH ×4 (02:49→20:25)
[2016-05-03] MEDS: CEFEPIME INJ 1,000 MG in SODIUM CHLORIDE 0.9% INJ 100 ML IV SCH ×3 (02:49→17:02)
[2016-05-03 05:28] LABS: EOSINOPHIL % 0.1 % (0.0-4.0); HEMATOCRIT 31.4 % (35.0-46.0); HEMO FLAGS DIFF FINAL; LYMPH % 8.3 % (9.0-44.0); MEAN CELL VOLUME 89.3 FL (80.0-100.0); MEAN CORPUSCULAR HEMOGLOBIN 29.1 PG (27.0-34.0); MEAN CORPUSCULAR HGB CONC 32.6 % (32.0-36.0); MONO % 1.9 % (0.0-8.0); NEUT % 89.6 % (16.0-70.0); PLATELET COUNT 159 TH/MM3 (150-450); RED BLOOD COUNT 3.52 MIL/MM3 (4.00-5.30); RED CELL DISTRIBUTION WIDTH 14.4 % (11.6-17.2); WHITE BLOOD COUNT 9.5 TH/MM3 (4.0-11.0)
[2016-05-03 05:29] LABS: AUTOMATED NEUTROPHIL # 8.5 TH/MM3 (1.8-7.7); BASOPHIL % 0.1 % (0.0-2.0); LYMPHOCYTE # 0.8 TH/MM3 (1.0-4.8)
[2016-05-03 05:39] LABS: CHLORIDE 103 MEQ/L (98-107); POTASSIUM 3.6 MEQ/L (3.5-5.1); SODIUM (NA) 143 MEQ/L (136-145)
[2016-05-03 06:02] LABS: ALKALINE PHOSPHATASE 41 U/L (45-117); ALT (GPT) 13 U/L (10-53); ANION GAP 9 MEQ/L (5-15); AST (GOT) 7 U/L (15-37); BICARBONATE 31.2 MEQ/L (21.0-32.0); BLOOD UREA NITROGEN 45 MG/DL (7-18); GLOMERULAR FILTRATION RATE 42 ML/MIN (>89); TOTAL BILIRUBIN ADULT 0.5 MG/DL (0.2-1.0)
--- NOTE | 2016-05-03 06:06 | HHI.PR ---
Subjective History of Present Illness Patient feel weak and tired D/W RN Ronda at bed side. Consult cardiology [place] DC Heparin for DVT Prophylaxis start SCD. Review of Systems Constitutional Constitutional: Fatigue, Weakness Pulmonary Respiratory: Shortness of Breath, Wheezing Vitals/Results Intake & Output 05/02/16 05/02/16 05/03/16 15:00 23:00 07:00 Intake Total 800 ml 775 ml 355 ml Output Total 300 ml Balance 800 ml 775 ml 55 ml Intake Oral 800 ml 240 ml 240 ml IV Total 535 ml 115 ml Output Urine Total 300 ml # Voids 3 1 # Bowel Movements 1 0 0 Vital Signs Vital Signs Date Time Temp Pulse Resp B/P Pulse Ox O2 Delivery O2 Flow Rate FiO2 05/03/16 04:00 95.6 60 20 142/85 96 05/03/16 00:00 95.7 60 20 157/78 94 05/02/16 21:52 98 Nasal Cannula 2.00 05/02/16 20:00 97.2 75 20 129/83 96 05/02/16 19:21 80 05/02/16 18:30 76 05/02/16 18:16 98 Nasal Cannula 2.00 05/02/16 16:00 97.1 75 20 164/99 95 05/02/16 12:00 96.2 75 20 142/85 98 05/02/16 08:01 97 Nasal Cannula 2.00 05/02/16 08:00 96.4 75 20 159/93 96 CBC/BMP: 05/03/16 0442 05/03/16 0442 Lab Results Laboratory Tests Test 05/03/16 04:42 White Blood Count 9.5 TH/MM3 Red Blood Count 3.52 MIL/MM3 Hemoglobin 10.3 GM/DL Hematocrit 31.4 % Mean Corpuscular Volume 89.3 FL Mean Corpuscular Hemoglobin 29.1 PG Mean Corpuscular Hemoglobin 32.6 % Concent Red Cell Distribution Width 14.4 % Platelet Count 159 TH/MM3 Mean Platelet Volume 8.5 FL Neutrophils (%) (Auto) 89.6 % Lymphocytes (%) (Auto) 8.3 % Monocytes (%) (Auto) 1.9 % Eosinophils (%) (Auto) 0.1 % Basophils (%) (Auto) 0.1 % Neutrophils # (Auto) 8.5 TH/MM3 Lymphocytes # (Auto) 0.8 TH/MM3 Monocytes # (Auto) 0.2 TH/MM3 Eosinophils # (Auto) 0.0 TH/MM3 Basophils # (Auto) 0.0 TH/MM3 CBC Comment DIFF FINAL Differential Comment Sodium Level 143 MEQ/L Potassium Level 3.6 MEQ/L Chloride Level 103 MEQ/L Carbon Dioxide Level 31.2 MEQ/L Anion Gap 9 MEQ/L Blood Urea Nitrogen 45 MG/DL Creatinine 1.20 MG/DL Estimat Glomerular Filtration 42 ML/MIN Rate Random Glucose 143 MG/DL Calcium Level 7.7 MG/DL Total Bilirubin 0.5 MG/DL Aspartate Amino Transf 7 U/L (AST/SGOT) Alanine Aminotransferase 13 U/L (ALT/SGPT) Alkaline Phosphatase 41 U/L Total Protein 6.3 GM/DL Albumin 2.3 GM/DL Microbiology Microbiology 05/02/16 Legionella Antigen, Received Pending 05/02/16 Streptococcus pneumoniae Antigen (M, Received Pending Physical Exam General General Appearance: No Acute Distress, Comfortable Eyes Eye Exam: Sclera White, Extraocular Movement Intact Ears & Nose Ears & Nose Exam: Nasal Mucosa [employer] Throat Throat Exam: Oral Mucosa [employer] & Moist, Oral Pharynx Normal Neck Neck Exam: Neck Supple, Trachea Midline Pulmonary Resp Exam: Crackles, Rhonchi Resp Remarks Bilateral wheezing. Cardiology CV Exam: Regular, Normal Sinus Rhythm Gastrointestinal/Abdomen GI Exam: Soft, Non-Tender, Bowel Sounds Present Musculoskeletal MS Exam: Joints Intact, Normal Tone Integumentary Skin Exam: Clear, Warm, Dry, Intact Extremeties Extremities Exam: No Edema Neurologic Neuro Exam: Alert, Awake, Speech Clear, Moving All Extremities, No Focal Deficits Psychiatric Psych Exam: Appropriate Responses VTE Prophylaxis VTE Prophylaxis Device: SCDs PUD Prophylasis PUD Prophylaxis: Protonix Assessment/Plan Assessment/Plan ASSESSMENT AND PLAN This is an 89-year-old female who came to the emergency room, diagnosed with shortness of breath most probably secondary to COPD exacerbation/pneumonia. 1. The patient is on Zithromax 500 mg IV 24 hours, cefepime 1 gram IV q. 8 hours. The patient also on DuoNeb nebulization. patient on Solu-Medrol 60 mg IV q. 6 hours. Pulmonary consulted. Further recommendations per Pulmonary. 2. History of congestive heart failure. Patient has chronic systolic heart failure, does not look like an acute decompensation. Patient's BNP is high. consult cardiology. The patient is on Lasix 40 mg daily. 3. History of hyperlipidemia. Continue Lipitor 10 mg p.o. p.o. daily. 4. History of coronary artery disease. Continue home medication. 5. History of hypothyroidism. Continue the home medication. 6. History of hypertension. Continue the home medication. We will monitor blood pressure. 7. History of anxiety. Continue with Xanax 0.5 mg p.o. q. 6 hours p.r.n. anxiety. 8. History of arthritis. Continue with Tramadol. 9. DVT Prophylaxis. Heparin 5000 units subcutaneous q. 12 hours. 10. GI prophylaxis. Protonix 40 mg p.o. daily. We are going to manage the patient on a daily basis and make recommendations on a daily basis. Discussed Condition with: Patient Sarabjit Monroe MD May 03, 2016 06:06
[2016-05-03] MEDS: LEVOTHYROXINE SODIUM 50 MCG TAB PO SCH (06:27)
[2016-05-03] MEDS: SODIUM CHLORIDE 0.9% FLUSH 5 ML FLUSH FLUSH SCH ×2 (08:59→20:25)
[2016-05-03] MEDS: ISOSORBIDE MONONITRATE 30 MG TAB PO SCH ×2 (09:00→20:24)
[2016-05-03] MEDS: LOSARTAN 50 MG TAB PO SCH (09:00)
[2016-05-03] MEDS: ASPIRIN 325 MG TAB TUBE SCH (09:00)
[2016-05-03] MEDS: HYDROCHLOROTHIAZIDE 12.5 MG CAP PO SCH (09:00)
[2016-05-03] MEDS ORDERED: FUROSEMIDE 40 MG/4 ML VIAL IV PUSH ONE (09:00)
[2016-05-03] MEDS: FUROSEMIDE 20 MG TAB PO SCH ×2 (09:01→17:02)
[2016-05-03] MEDS: ATORVASTATIN 10 MG TAB PO SCH (09:01)
[2016-05-03] MEDS: CITALOPRAM HYDROBROMIDE 20 MG TAB PO SCH (09:01)
[2016-05-03] MEDS: guaiFENesin E.R. 600 MG TAB PO SCH ×2 (09:01→20:24)
[2016-05-03] MEDS: RESP: ALBUTEROL 2.5 MG/3 ML NEB (PRN) INH (09:31)
[2016-05-03] MEDS: AZITHROMYCIN INJ 500 MG in SODIUM CHLOR 0.9% 250 ML INJ 250 ML IV SCH (12:06)
--- NOTE | 2016-05-03 14:48 | MB ---
cc: MIGUEL ANGEL WAGONER M.D. DATE OF CONSULTATION: 05/03/2016 HISTORY OF PRESENT ILLNESS Ramona is a very pleasant 89-year-old lady who I recall I did a recent catheterization on which showed mild cardiomyopathy, EF 45%, mild coronary artery disease. Pulmonary capillary wedge pressure was 26/29-22, PA pressure 41/16-29. Cardiac output by Jose was 3.4 liters per minute. Cardiac index by Jose was 2.2 liters per minute. She is admitted with the chief complaint of shortness of breath, congestion, cough. She denies any subjective fever. She is resting in bed comfortably in no acute distress. Denies chest pain, GI or bleeding, PND, orthopnea, syncope or dizziness. She also notes she was not able to get out of bed. She had stool and urinary incontinence and confusion. PAST MEDICAL HISTORY Per history of present illness. Also includes: 1. Hypertension. 2. COPD. 3. Depression. 4. Anxiety. 5. Hypothyroidism. SOCIAL HISTORY Rarely drinks alcohol. Denies tobacco use. ALLERGIES None. MEDICATIONS Medications in the hospital: 1. Imdur 30 mg b.i.d. 2. Azithromycin. 3. Losartan 100, daily. 4. HCTZ 12.5, daily. 5. Albuterol. 6. Levothyroxine. 7. Aspirin 325. 8. Atorvastatin 10, daily. 9. Flexa. 10. Guaifenesin. 11. Methylprednisolone. 12. Lasix 20, p.o. b.i.d. 13. Albuterol. 14. Carvedilol 3.25, p.r.n. PHYSICAL EXAMINATION VITAL SIGNS: Blood pressure 121/72, pulse ranging between 60 and 64, respiratory rate 20. Sats 98% on 2 liters nasal cannula. Temperature 96.5, T-max 96.8. GENERAL: She is alert and oriented x 3 in no acute distress. NECK: Supple. No JVD. No bruit. CARDIOVASCULAR: S1, S2. No murmurs, rubs or gallops. LUNGS: Notable for decreased air movement in the left lung. ABDOMEN: Soft, nontender, nondistended. Positive bowel sounds. EXTREMITIES: No lower extremity edema. IMAGING DATA Chest x-ray on 05/01/2016: No significant change with left chest infiltrate and/or mass is unchanged. Right lung is grossly clear. Chest x-ray on 05/02/2016: Unchanged small left pleural effusion and left lung consolidation. Chest CT is pending. LABORATORY DATA White count 11.1 of admission, currently 9.5. Hemoglobin 10.3, hematocrit 31.4, platelet count 159. Sodium 143, potassium 3.6, chloride 103, bicarb 31.2, BUN 45, creatinine 1.20, glucose 143. Troponin is 0.07 followed by 0.05. Albumin 2.3. BNP is 235. Initial troponin is 0.09. EKG DATA EKG: Sinus tachycardia at 104 beats per minute, anteroseptal Q-waves, 0.[address] segment depression in leads V4, V5, V6. DIAGNOSIS 1. Non-STEMI. 2. Coronary artery disease. 3. Cardiomyopathy. 4. COPD. 5. Asthmatic bronchitis. 6. Hypothyroidism. 7. Hyperlipidemia. 8. Possible pneumonia. DISCUSSION At this point in time I suspect the troponin is nonspecifically elevated, probably partially related to cardiomyopathy and renal insufficiency. She had no significant obstructive disease on her cardiac catheterization, April 03, 2016. Recommend continue Imdur, losartan and Lipitor as well as aspirin. Beta-blockers are held due to reactive airway disease. She appears to be euvolemic with a very mildly elevated BNP. I think it is reasonable to continue her on b.i.d. Lasix at a low dose. I suspect the her primary etiology of her shortness of breath and congestion is pulmonary COPD exacerbation. Dr. Thakkar has ordered a chest CT. Will continue to follow and recommend telemetry monitoring. MD LEIDY Arango/BT /1:55 PM /2:26 PM
--- NOTE | 2016-05-03 14:56 | RADHPO ---
EXAM DATE/TIME: 05/03/2016 13:28 [place] COMPARISON: CT THORAX W/O CONTRAST, January 15, 2016, 21:01. INDICATIONS: Cough. Infiltrate. RADIATION DOSE: 6.17 CTDIvol (mGy) MEDICAL HISTORY: Chronic obstructive pulmonary disease. Congestive heart failure. Dementia. Hypothyroid. Hypertension . SURGICAL HISTORY: None. ENCOUNTER: Initial ACUITY: 2 days PAIN SCALE: 0/10 LOCATION: Chest TECHNIQUE: Volumetric scanning of the chest was performed. Using automated exposure control and adjustment of t he mA and/or kV according to patient size, radiation dose was kept as low as reasonably achievable to obtain optimal diagnostic quality images. FINDINGS: Consolidative infiltrates are again seen in the left lung. These have progressed from 01/15/16. Mini mal consolidative changes are present in the right middle lobe that have regressed. There is trace pleural effusion on the right side. 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 Descending aorta is normal. There is no axillary or mediastinal adenopathy. CONCLUSION: Stable findings in the chest with consolidative changes in both the right and left lungs with trace r ight pleural effusion. There is continued dilatation of the ascending aorta, stable in the interval. Rogelio Polanco MD FACR on May 03, 2016 at 14:25 Board Certified Radiologist. This report was verified electronically.
--- NOTE | 2016-05-03 16:44 | PQ ---
Physician Query Response Document PATIENT: JOY HOBSON : 1925 ADMIT DATE: 05/01/2016 10:53 AM DISCH DATE: RESPONDING PROVIDER #: EAhmed QUERY TEXT: Sepsis Query Based on your medical judgement, can you further clarify the folowiin. Sepsis (SIRS due to an infection) 2. Sepsis with Organ Dysfunction 3. A localized Infection only 4. Another condition - please specify 5. Unable to determine - please explain. Depending on your selection above, please indicate one of the below if applicable: - Sepsis was present on Admission - Sepsis developed after admission The patient's Clinical Indicators include: T 102.4 HR 101, RR 28, BP 124/84 O2 SAT 91 LACTIC ACID 1.8 did not req repeat AND WBC 11.1 on admission COPD exacerbation/pneumonia. 1. The patient is on Zithromax 500 mg IV 24 hours, cefepime 1 gram IV q. 8 hours. PER PULMONARY LEFT BASILAR PNEUMONIA W EFFUSION ASTHMATIC BRONCHITIS Query created by: Grace Dow on 05/03/2016 2:16 PM RESPONSE TEXT: Sepsis due to infection. Electronically signed by: Sarabjit Monroe MD 05/03/2016 4:40 PM
[2016-05-04] VITALS (8 sets, daily range): BP systolic 114–172; BP diastolic 62–79; PULSE 55–78; RESP 16–24; TEMP 97.1–98.3; O2SAT 96–98
[2016-05-04] MEDS: methylPREDNISolone SOD SUCC 125 MG/2 ML VIAL IV PUSH SCH ×4 (02:02→21:23)
[2016-05-04] MEDS: CEFEPIME INJ 1,000 MG in SODIUM CHLORIDE 0.9% INJ 100 ML IV SCH ×3 (02:02→18:34)
[2016-05-04] MEDS: SODIUM CHLORIDE 0.9% FLUSH 5 ML FLUSH FLUSH PRN (02:03)
[2016-05-04] MEDS: LEVOTHYROXINE SODIUM 50 MCG TAB PO SCH (06:07)
[2016-05-04 06:53] LABS: AUTOMATED NEUTROPHIL # 9.1 TH/MM3 (1.8-7.7); BASOPHIL % 0.1 % (0.0-2.0); EOSINOPHIL # 0.1 TH/MM3 (0-0.4); EOSINOPHIL % 0.7 % (0.0-4.0); HEMATOCRIT 29.7 % (35.0-46.0); HEMO FLAGS DIFF FINAL; LYMPH % 7.4 % (9.0-44.0); LYMPHOCYTE # 0.7 TH/MM3 (1.0-4.8); MEAN CELL VOLUME 89.8 FL (80.0-100.0); MEAN CORPUSCULAR HGB CONC 33.4 % (32.0-36.0); MONO % 2.3 % (0.0-8.0); NEUT % 89.5 % (16.0-70.0); PLATELET COUNT 147 TH/MM3 (150-450); RED CELL DISTRIBUTION WIDTH 14.2 % (11.6-17.2); WHITE BLOOD COUNT 10.1 TH/MM3 (4.0-11.0)
[2016-05-04 07:04] LABS: ALKALINE PHOSPHATASE 38 U/L (45-117); ALT (GPT) 12 U/L (10-53); ANION GAP 10 MEQ/L (5-15); AST (GOT) 4 U/L (15-37); BICARBONATE 30.7 MEQ/L (21.0-32.0); BLOOD UREA NITROGEN 50 MG/DL (7-18); CHLORIDE 99 MEQ/L (98-107); GLOMERULAR FILTRATION RATE 35 ML/MIN (>89); SODIUM (NA) 140 MEQ/L (136-145); TOTAL BILIRUBIN ADULT 0.4 MG/DL (0.2-1.0)
--- NOTE | 2016-05-04 07:04 | HHI.PR ---
Subjective History of Present Illness Patient feel weak and tired D/W RN Precious at bed side. cardiology input noted D/W daughter in detail understand patient condition and out come...Patient DNR. Review of Systems Constitutional Constitutional: Fatigue, Weakness Pulmonary Respiratory: Shortness of Breath, Wheezing Vitals/Results Intake & Output 05/03/16 05/03/16 05/04/16 15:00 23:00 07:00 Intake Total 550 ml 910 ml Balance 550 ml 910 ml Intake Oral 550 ml 210 ml IV Total 700 ml # Voids 3 2 1 # Bowel Movements 1 1 Vital Signs Vital Signs Date Time Temp Pulse Resp B/P Pulse Ox O2 Delivery O2 Flow Rate FiO2 05/04/16 04:00 98.1 61 18 138/76 97 05/04/16 00:00 98.0 55 16 147/75 98 05/03/16 21:11 97 Nasal Cannula 2.00 05/03/16 20:48 96.2 63 22 142/72 97 05/03/16 20:00 66 05/03/16 17:53 66 05/03/16 16:00 97.3 58 20 136/68 98 05/03/16 11:37 96.5 63 20 121/72 98 05/03/16 09:32 98 Nasal Cannula 2.00 05/03/16 08:00 96.8 64 24 147/72 100 CBC/BMP: 05/04/16 0552 05/03/16 0442 Lab Results Laboratory Tests Test 05/04/16 05:52 White Blood Count 10.1 TH/MM3 Red Blood Count 3.30 MIL/MM3 Hemoglobin 9.9 GM/DL Hematocrit 29.7 % Mean Corpuscular Volume 89.8 FL Mean Corpuscular Hemoglobin 30.0 PG Mean Corpuscular Hemoglobin 33.4 % Concent Red Cell Distribution Width 14.2 % Platelet Count 147 TH/MM3 Mean Platelet Volume 8.5 FL Neutrophils (%) (Auto) 89.5 % Lymphocytes (%) (Auto) 7.4 % Monocytes (%) (Auto) 2.3 % Eosinophils (%) (Auto) 0.7 % Basophils (%) (Auto) 0.1 % Neutrophils # (Auto) 9.1 TH/MM3 Lymphocytes # (Auto) 0.7 TH/MM3 Monocytes # (Auto) 0.2 TH/MM3 Eosinophils # (Auto) 0.1 TH/MM3 Basophils # (Auto) 0.0 TH/MM3 CBC Comment DIFF FINAL Differential Comment Physical Exam General General Appearance: No Acute Distress, Comfortable Eyes Eye Exam: Sclera White, Extraocular Movement Intact Ears & Nose Ears & Nose Exam: Nasal Mucosa [place] Throat Throat Exam: Oral Mucosa [place] & Moist, Oral Pharynx Normal Neck Neck Exam: Neck Supple, Trachea Midline Pulmonary Resp Exam: Crackles, Rhonchi Resp Remarks Bilateral wheezing. Cardiology CV Exam: Regular, Normal Sinus Rhythm Gastrointestinal/Abdomen GI Exam: Soft, Non-Tender, Bowel Sounds Present Musculoskeletal MS Exam: Joints Intact, Normal Tone Integumentary Skin Exam: Clear, Warm, Dry, Intact Extremeties Extremities Exam: No Edema Neurologic Neuro Exam: Alert, Awake, Speech Clear, Moving All Extremities, No Focal Deficits Psychiatric Psych Exam: Appropriate Responses VTE Prophylaxis VTE Prophylaxis Device: SCDs PUD Prophylasis PUD Prophylaxis: Protonix Assessment/Plan Assessment/Plan ASSESSMENT AND PLAN This is an 89-year-old female who came to the emergency room, diagnosed with shortness of breath most probably secondary to COPD exacerbation/pneumonia. 1. The patient is on Zithromax 500 mg IV 24 hours, cefepime 1 gram IV q. 8 hours. The patient also on DuoNeb nebulization. patient on Solu-Medrol 60 mg IV q. 6 hours. Pulmonary Input noted. Further recommendations per Pulmonary. 2. History of congestive heart failure. Patient has chronic systolic heart failure, does not look like an acute decompensation. Patient's BNP is high. cardiology. input noted. The patient is on Lasix 40 mg daily. 3. History of hyperlipidemia. Continue Lipitor 10 mg p.o. p.o. daily. 4. History of coronary artery disease. Continue home medication. 5. History of hypothyroidism. Continue the home medication. 6. History of hypertension. Continue the home medication. We will monitor blood pressure. 7. History of anxiety. Continue with Xanax 0.5 mg p.o. q. 6 hours p.r.n. anxiety. 8. History of arthritis. Continue with Tramadol. 9. DVT Prophylaxis. SCD. 10 Gi Prophylaxis...Protonix 40 mg PO Daily. We are going to manage the patient on a daily basis and make recommendations on a daily basis. Discussed Condition with: Patient, Daughter Sarabjit Monroe MD May 04, 2016 07:04
[2016-05-04 07:37] LABS: POTASSIUM 2.6 MEQ/L (3.5-5.1)
[2016-05-04] MEDS ORDERED: POTASSIUM CL 40 MEQ/30 ML LIQ UDC PO ONE (08:45)
[2016-05-04] MEDS: SODIUM CHLORIDE 0.9% FLUSH 5 ML FLUSH FLUSH SCH ×2 (09:13→21:23)
[2016-05-04] MEDS: FUROSEMIDE 20 MG TAB PO SCH ×2 (09:15→18:35)
[2016-05-04] MEDS: ISOSORBIDE MONONITRATE 30 MG TAB PO SCH ×2 (09:15→21:22)
[2016-05-04] MEDS: LOSARTAN 50 MG TAB PO SCH (09:15)
[2016-05-04] MEDS: HYDROCHLOROTHIAZIDE 12.5 MG CAP PO SCH (09:16)
[2016-05-04] MEDS: guaiFENesin E.R. 600 MG TAB PO SCH ×2 (09:16→21:22)
[2016-05-04] MEDS: CITALOPRAM HYDROBROMIDE 20 MG TAB PO SCH (09:16)
[2016-05-04] MEDS: ASPIRIN 325 MG TAB TUBE SCH (09:16)
--- NOTE | 2016-05-04 09:16 | PD.CARD.PN ---
Subjective Subjective Remarks alert but coughing and sounds congested Objective Vital Signs / I&O Vital Signs Date Time Temp Pulse Resp B/P Pulse Ox O2 Delivery O2 Flow Rate FiO2 05/04/16 08:00 97.7 78 24 168/79 96 05/04/16 04:00 98.1 61 18 138/76 97 05/04/16 00:00 98.0 55 16 147/75 98 05/03/16 21:11 97 Nasal Cannula 2.00 05/03/16 20:48 96.2 63 22 142/72 97 05/03/16 20:00 66 05/03/16 17:53 66 05/03/16 16:00 97.3 58 20 136/68 98 05/03/16 11:37 96.5 63 20 121/72 98 05/03/16 09:32 98 Nasal Cannula 2.00 I/O 05/03/16 05/03/16 05/03/16 05/04/16 05/04/16 05/04/16 07:00 15:00 23:00 07:00 15:00 23:00 Intake Total 355 ml 550 ml 910 ml Output Total 300 ml Balance 55 ml 550 ml 910 ml Intake Oral 240 ml 550 ml 210 ml IV Total 115 ml 700 ml Output Urine Total 300 ml # Voids 3 2 1 # Bowel Movements 0 1 1 Physical Exam GENERAL: SKIN: Warm and dry. HEAD: Normocephalic. EYES: No scleral icterus. No injection or drainage. NECK: Supple, trachea midline. No JVD or lymphadenopathy. CARDIOVASCULAR: Regular rate and rhythm without murmurs, gallops, or rubs. RESPIRATORY: Breath sounds equal bilaterally. No accessory muscle use. GASTROINTESTINAL: Abdomen soft, non-tender, nondistended. MUSCULOSKELETAL: No cyanosis, or edema. BACK: Nontender without obvious deformity. No CVA tenderness. Laboratory Laboratory Tests Test 05/04/16 05:52 White Blood Count 10.1 TH/MM3 Red Blood Count 3.30 MIL/MM3 Hemoglobin 9.9 GM/DL Hematocrit 29.7 % Mean Corpuscular Volume 89.8 FL Mean Corpuscular Hemoglobin 30.0 PG Mean Corpuscular Hemoglobin 33.4 % Concent Red Cell Distribution Width 14.2 % Platelet Count 147 TH/MM3 Mean Platelet Volume 8.5 FL Neutrophils (%) (Auto) 89.5 % Lymphocytes (%) (Auto) 7.4 % Monocytes (%) (Auto) 2.3 % Eosinophils (%) (Auto) 0.7 % Basophils (%) (Auto) 0.1 % Neutrophils # (Auto) 9.1 TH/MM3 Lymphocytes # (Auto) 0.7 TH/MM3 Monocytes # (Auto) 0.2 TH/MM3 Eosinophils # (Auto) 0.1 TH/MM3 Basophils # (Auto) 0.0 TH/MM3 CBC Comment DIFF FINAL Differential Comment Sodium Level 140 MEQ/L Potassium Level 2.6 MEQ/L Chloride Level 99 MEQ/L Carbon Dioxide Level 30.7 MEQ/L Anion Gap 10 MEQ/L Blood Urea Nitrogen 50 MG/DL Creatinine 1.40 MG/DL Estimat Glomerular Filtration 35 ML/MIN Rate Random Glucose 147 MG/DL Calcium Level 7.8 MG/DL Magnesium Level 2.3 MG/DL Total Bilirubin 0.4 MG/DL Aspartate Amino Transf 4 U/L (AST/SGOT) Alanine Aminotransferase 12 U/L (ALT/SGPT) Alkaline Phosphatase 38 U/L Total Protein 6.3 GM/DL Albumin 2.3 GM/DL Assessment and Plan Problem List: (1) SOB (shortness of breath) (2) Pleural effusion (3) Hypothyroid (4) NSTEMI (non-ST elevated myocardial infarction) (5) HTN (hypertension) (6) COPD (chronic obstructive pulmonary disease) (7) Congestive heart failure (8) Elevated troponin (9) PNA (pneumonia) (10) CAD (coronary artery disease) (11) Cardiomyopathy Assessment and Plan 1.) CAD/cardiomyopathy - continue aspirin, lipitor, lasix, hctz, losartan, beta blockers held d/t rad; rx of copd/pneumonia per Dr Pizarro Problem Qualifiers (1) PNA (pneumonia): Qualified Code: J18.9 - Pneumonia of left lung due to infectious organism, unspecified part of lung Camacho Balbuena MD May 04, 2016 09:16
[2016-05-04] MEDS: ATORVASTATIN 10 MG TAB PO SCH (09:33)
[2016-05-04] MEDS: AZITHROMYCIN INJ 500 MG in SODIUM CHLOR 0.9% 250 ML INJ 250 ML IV SCH (12:04)
[2016-05-04] MEDS: RESP: ALBUTEROL 2.5 MG/3 ML NEB (PRN) INH (14:19)
[2016-05-04] MEDS: RESP: ALBUTEROL 2.5 MG/IPRATROPIUM 0.5 MG NEB (SCH) NEB (19:41)
[2016-05-04] MEDS: ALPRAZolam 0.5 MG TAB PO PRN (21:30)
[2016-05-04] MEDS: guaiFENesin/CODEINE SYRUP 200 MG/20 MG/10 ML CUP PO PRN (21:30)
[2016-05-05] VITALS (13 sets, daily range): BP systolic 132–190; BP diastolic 67–92; PULSE 54–83; RESP 16–20; TEMP 95.9–98; O2SAT 93–100
[2016-05-05] MEDS: SODIUM CHLORIDE 0.9% FLUSH 5 ML FLUSH FLUSH PRN (03:36)
[2016-05-05] MEDS: methylPREDNISolone SOD SUCC 125 MG/2 ML VIAL IV PUSH SCH ×3 (03:36→18:51)
[2016-05-05] MEDS: CEFEPIME INJ 1,000 MG in SODIUM CHLORIDE 0.9% INJ 100 ML IV SCH ×3 (03:36→18:52)
[2016-05-05] MEDS ORDERED: DEXT 5%-NACL 0.45% 1000 ML INJ 1,000 ML IV SCH (05:00)
[2016-05-05] MEDS: LEVOTHYROXINE SODIUM 50 MCG TAB PO SCH (05:26)
[2016-05-05 07:03] LABS: AUTOMATED NEUTROPHIL # 10.6 TH/MM3 (1.8-7.7); HEMATOCRIT 30.4 % (35.0-46.0); LYMPH % 4.7 % (9.0-44.0); LYMPHOCYTE # 0.5 TH/MM3 (1.0-4.8); MEAN CELL VOLUME 88.8 FL (80.0-100.0); MEAN CORPUSCULAR HEMOGLOBIN 29.6 PG (27.0-34.0); MEAN CORPUSCULAR HGB CONC 33.4 % (32.0-36.0); NEUT % 93.3 % (16.0-70.0); PLATELET COUNT 146 TH/MM3 (150-450); RED BLOOD COUNT 3.42 MIL/MM3 (4.00-5.30); RED CELL DISTRIBUTION WIDTH 13.8 % (11.6-17.2); WHITE BLOOD COUNT 11.3 TH/MM3 (4.0-11.0)
[2016-05-05 07:12] LABS: HEMO FLAGS DIFF FINAL
[2016-05-05 07:26] LABS: ALKALINE PHOSPHATASE 40 U/L (45-117); ALT (GPT) 18 U/L (10-53); ANION GAP 12 MEQ/L (5-15); AST (GOT) 9 U/L (15-37); BICARBONATE 31.2 MEQ/L (21.0-32.0); BLOOD UREA NITROGEN 53 MG/DL (7-18); CHLORIDE 100 MEQ/L (98-107); GLOMERULAR FILTRATION RATE 35 ML/MIN (>89); SODIUM (NA) 143 MEQ/L (136-145); TOTAL BILIRUBIN ADULT 0.5 MG/DL (0.2-1.0)
[2016-05-05] MEDS: RESP: ALBUTEROL 2.5 MG/IPRATROPIUM 0.5 MG NEB (SCH) NEB ×3 (07:27→19:37)
[2016-05-05 07:40] LABS: POTASSIUM 2.6 MEQ/L (3.5-5.1)
[2016-05-05] MEDS: POTASSIUM CHLOR 20 MEQ PREMIX 100 ML IV SCH ×4 (08:50→18:52)
[2016-05-05] MEDS: SODIUM CHLORIDE 0.9% FLUSH 5 ML FLUSH FLUSH SCH (08:57)
[2016-05-05] MEDS: guaiFENesin E.R. 600 MG TAB PO SCH ×2 (09:00→20:42)
[2016-05-05] MEDS: ATORVASTATIN 10 MG TAB PO SCH (09:00)
[2016-05-05] MEDS: FUROSEMIDE 20 MG TAB PO SCH ×2 (09:00→18:51)
[2016-05-05] MEDS: CITALOPRAM HYDROBROMIDE 20 MG TAB PO SCH (09:00)
[2016-05-05] MEDS ORDERED: ENALAPRILAT 1.25 MG/ML VIAL IV PUSH PRN (09:15)
--- NOTE | 2016-05-05 09:50 | RADHPO ---
EXAM DATE/TIME: 05/05/2016 02:55 [facility] COMPARISON: No previous studies available for comparison. INDICATIONS : Left hip pain post fall. MEDICAL HISTORY : Chronic obstructive pulmonary disease. Congestive heart failure. Hypothyroidism. Hypertension, [place] SURGICAL HISTORY : None. ENCOUNTER: Initial ACUITY: 1 day PAIN SCORE: 7/10 LOCATION: Left pelvis FINDINGS: There is diffuse osteopenia. There is an intratrochanteric fracture of the left proximal femur witho ut significant angulation. There is mild impaction. The femoral head remains projected within the a cetabulum. The right hip is intact. The arcuate lines of the sacrum are symmetric. CONCLUSION: Intratrochanteric fracture left proximal femur. Rm Bullard MD on May 05, 2016 at 3:22 Board Certified Radiologist. This report was verified electronically.
[2016-05-05] MEDS: AZITHROMYCIN INJ 500 MG in SODIUM CHLOR 0.9% 250 ML INJ 250 ML IV SCH (11:00)
[2016-05-05] MEDS ORDERED: ceFAZolin INJ 1,000 MG VIAL ONE (11:44)
[2016-05-05] MEDS ORDERED: VANCOMYCIN HCL 1000 MG VIAL ONE (11:45)
[2016-05-05] MEDS ORDERED: ONDANSETRON HCL 4 MG/2 ML VIAL IV PUSH ONE (12:00)
[2016-05-05] MEDS ORDERED: PROPOFOL 200 MG/20 ML AMP IV ONE (12:00)
[2016-05-05] MEDS: ISOSORBIDE MONONITRATE 30 MG TAB PO SCH ×2 (12:44→20:42)
[2016-05-05] MEDS: LOSARTAN 50 MG TAB PO SCH (12:44)
[2016-05-05] MEDS: HYDROCHLOROTHIAZIDE 12.5 MG CAP PO SCH (12:44)
[2016-05-05] MEDS: FUROSEMIDE 20 MG/2 ML VIAL IV PUSH SCH (12:53)
--- NOTE | 2016-05-05 13:50 | HHI.PR ---
Subjective History of Present Illness Patient s/p fall have left hip fracture getting surgery today.have D/W ANJALI Lang at bed side. cardiology input noted D/W daughter in detail understand patient condition and out come. Hypokalemia...will replace and monitor Magnasium normal. Review of Systems Constitutional Constitutional: Fatigue, Weakness Pulmonary Respiratory: Shortness of Breath, Wheezing Musculoskeletal MS Remarks left hip pain. Vitals/Results Intake & Output 05/04/16 05/04/16 05/05/16 15:00 23:00 07:00 Intake Total 750 ml 120 ml 120 ml Balance 750 ml 120 ml 120 ml Intake Oral 750 ml 120 ml 120 ml # Voids 3 2 2 # Bowel Movements 2 0 0 Vital Signs Vital Signs Date Time Temp Pulse Resp B/P Pulse Ox O2 Delivery O2 Flow Rate FiO2 05/05/16 11:12 190/83 05/05/16 10:50 96.4 83 20 190/92 99 05/05/16 08:00 96.8 60 20 181/78 96 05/05/16 08:00 57 05/05/16 07:30 98 Nasal Cannula 2.00 05/05/16 05:00 97.5 62 16 187/88 97 05/05/16 04:00 96.0 54 20 167/84 100 05/05/16 03:00 96.0 55 20 166/85 99 05/05/16 02:00 95.9 64 18 182/92 98 05/05/16 00:00 98.0 60 20 172/82 98 05/04/16 20:00 98.3 70 20 172/76 98 05/04/16 20:00 60 05/04/16 19:40 96 Nasal Cannula 2.00 05/04/16 16:00 97.1 65 22 114/72 98 CBC/BMP: 05/05/16 0555 05/05/16 0555 Lab Results Laboratory Tests Test 05/05/16 05:55 White Blood Count 11.3 TH/MM3 Red Blood Count 3.42 MIL/MM3 Hemoglobin 10.1 GM/DL Hematocrit 30.4 % Mean Corpuscular Volume 88.8 FL Mean Corpuscular Hemoglobin 29.6 PG Mean Corpuscular Hemoglobin 33.4 % Concent Red Cell Distribution Width 13.8 % Platelet Count 146 TH/MM3 Mean Platelet Volume 8.9 FL Neutrophils (%) (Auto) 93.3 % Lymphocytes (%) (Auto) 4.7 % Monocytes (%) (Auto) 2.0 % Eosinophils (%) (Auto) 0.0 % Basophils (%) (Auto) 0.0 % Neutrophils # (Auto) 10.6 TH/MM3 Lymphocytes # (Auto) 0.5 TH/MM3 Monocytes # (Auto) 0.2 TH/MM3 Eosinophils # (Auto) 0.0 TH/MM3 Basophils # (Auto) 0.0 TH/MM3 CBC Comment DIFF FINAL Differential Comment Sodium Level 143 MEQ/L Potassium Level 2.6 MEQ/L Chloride Level 100 MEQ/L Carbon Dioxide Level 31.2 MEQ/L Anion Gap 12 MEQ/L Blood Urea Nitrogen 53 MG/DL Creatinine 1.40 MG/DL Estimat Glomerular Filtration 35 ML/MIN Rate Random Glucose 158 MG/DL Calcium Level 7.8 MG/DL Total Bilirubin 0.5 MG/DL Aspartate Amino Transf 9 U/L (AST/SGOT) Alanine Aminotransferase 18 U/L (ALT/SGPT) Alkaline Phosphatase 40 U/L Total Protein 6.4 GM/DL Albumin 2.4 GM/DL Physical Exam General General Appearance: No Acute Distress, Comfortable Eyes Eye Exam: Sclera White, Extraocular Movement Intact Ears & Nose Ears & Nose Exam: Nasal Mucosa [place]an Throat Throat Exam: Oral Mucosa [place] & Moist, Oral Pharynx Normal Neck Neck Exam: Neck Supple, Trachea Midline Pulmonary Resp Exam: Crackles, Rhonchi Resp Remarks Bilateral wheezing. Cardiology CV Exam: Regular, Normal Sinus Rhythm Gastrointestinal/Abdomen GI Exam: Soft, Non-Tender, Bowel Sounds Present Musculoskeletal MS Remarks Left hip tenderness. Integumentary Skin Exam: Clear, Warm, Dry, Intact Extremeties Extremities Exam: No Edema Neurologic Neuro Exam: Alert, Awake, Speech Clear, Moving All Extremities, No Focal Deficits Psychiatric Psych Exam: Appropriate Responses VTE Prophylaxis VTE Prophylaxis Device: SCDs PUD Prophylasis PUD Prophylaxis: Protonix Assessment/Plan Assessment/Plan ASSESSMENT AND PLAN This is an 89-year-old female who came to the emergency room, diagnosed with shortness of breath most probably secondary to COPD exacerbation/pneumonia. 1. The patient is on Zithromax 500 mg IV 24 hours, cefepime 1 gram IV q. 8 hours. The patient also on DuoNeb nebulization. patient on Solu-Medrol 60 mg IV q. 6 hours. Pulmonary Input noted. Further recommendations per Pulmonary. 2. History of congestive heart failure. Patient has chronic systolic heart failure, does not look like an acute decompensation. Patient's BNP is high. cardiology. input noted. The patient is on Lasix 40 mg daily. 3. History of hyperlipidemia. Continue Lipitor 10 mg p.o. p.o. daily. 4. History of coronary artery disease. Continue home medication. 5. History of hypothyroidism. Continue the home medication. 6. History of hypertension. Continue the home medication. We will monitor blood pressure. 7. History of anxiety. Continue with Xanax 0.5 mg p.o. q. 6 hours p.r.n. anxiety. 8. History of arthritis. Continue with Tramadol. 9. DVT Prophylaxis. SCD. 10 GI Prophylaxis...Protonix 40 mg PO Daily. 11. S/P Fall leading to left Femur Intertronchatric fracture Orthopedic consulted getting surgery today. 12. Hypokalemia...will replace and monitor Magnasium normal. We are going to manage the patient on a daily basis and make recommendations on a daily basis. Discussed Condition with: Patient Sarabjit Monroe MD May 05, 2016 13:50
[2016-05-05] MEDS ORDERED: GENTAMICIN SULFATE 80 MG/2 ML VIAL ONE (15:20)
[2016-05-05] MEDS ORDERED: NALOXONE HCL 0.4 MG/ML AMP IV PRN (16:00)
[2016-05-05] MEDS ORDERED: MAGNESIUM HYDROXIDE SUSP 30 ML CUP PO PRN (16:00)
[2016-05-05] MEDS ORDERED: Post-op Orders (for Pharmacy) MISC XX ONE (16:00)
[2016-05-05] MEDS ORDERED: ACETAMINOPHEN/HYDROcodone 325 MG/7.5 MG TAB PO PRN ×2 (16:00)
[2016-05-05] MEDS ORDERED: MORPHINE SULFATE 4 MG/ML INJ IV PUSH PRN (16:00)
[2016-05-05] MEDS ORDERED: MISCELLANEOUS PHARMACY INFORMATION XX ONE (16:00)
[2016-05-05] MEDS ORDERED: SODIUM CHLORIDE 0.9% FLUSH 5 ML FLUSH IVF PRN (16:00)
[2016-05-05] MEDS ORDERED: diphenhydrAMINE HCL 25 MG CAP PO PRN (16:00)
[2016-05-05] MEDS ORDERED: ONDANSETRON HCL 4 MG/2 ML VIAL IVP PRN (16:00)
[2016-05-05] MEDS ORDERED: MISCELLANEOUS NURSING INFORMATION XX PRN (16:00)
--- NOTE | 2016-05-05 16:03 | MB ---
cc: HELIO LOMBARDO M.D. DATE OF CONSULTATION: 05/05/2016. REASON FOR CONSULTATION: Left hip fracture. HISTORY OF PRESENT ILLNESS: This patient is an 89-year-old female who was initially admitted with cough and shortness of breath to [facility]. She was found this morning lying on the ground. She was complaining of severe left hip pain and was unable to stand or ambulate. They performed x-rays and she was diagnosed with a left intertrochanteric hip fracture. Orthopedic surgery was consulted. The patient has been transferred from [facility] to [facility] for consideration of surgical intervention. The pain is moderate to severe. The patient's family members are at the bedside including the patient's daughter. She denies numbness or tingling. The pain is constant, throbbing and aching and any movement of the hip causes exacerbation of her symptoms. PAST MEDICAL HISTORY: Her past medical history is positive for: 1. Hypertension. 2. COPD. 3. Cardiomyopathy. 4. Congestive heart failure. 5. Depression. 6. Anxiety. 7. Hypothyroidism. 8. Hyperlipidemia. FAMILY HISTORY: Her family history is positive for lung cancer. ALLERGIES: NO KNOWN DRUG ALLERGIES. SOCIAL HISTORY She occasionally drinks. no smoking or drug use. She lives at home. MEDICATIONS: 1. Isosorbide. 2. Lasix. 3. Aspirin. 4. Albuterol. 5. Carvedilol. 6. Lipitor. 7. Tramadol. 8. Xanax. 9. Ventolin. 10. Prednisone. 11. Levothyroxine. 12. Citalopram. 13. Micardis. REVIEW OF SYSTEMS: The patient has had intermittent coughing and shortness of breath. Otherwise a ten-point review of systems is negative other than the left hip pain as related to the recent fall. PHYSICAL EXAMINATION: GENERAL: 89-year-old female lying in bed currently in no acute distress. VITAL SIGNS: Temperature 98, pulse of 74, respirations 18, blood pressure 130/80. HEAD, EYES, EARS, NOSE, THROAT: Normocephalic and atraumatic. Pupils round and reactive to light. Extraocular muscles intact. NECK: The neck is supple. LUNGS: Air entry bilaterally. HEART: Regular rate and rhythm. ABDOMEN: Abdomen soft and nontender. EXTREMITIES: The patient has pain with passive motion of the left hip. She has shortening and external rotation of the left hip upon clinical exam. She can flex and extend her ankle and toes distally. Brisk capillary refill. Sensation is intact distally. IMAGING STUDIES: X-rays of the left hip, AP pelvis, shows a left intertrochanteric hip fracture. IMPRESSION: An 89-year-old female status post fall left intertrochanteric hip fracture. PLAN: I discussed the diagnosis and treatment options with the patient and family members. I spoke about the option of nonoperative treatment versus surgery. Surgery would consist of open reduction internal fixation with intramedullary nailing. The risks of surgery were discussed, which include but are not limited to anesthesia, bleeding, infection, damage to nerve or blood vessels, pain, stiffness, failure of components, blood clots, pulmonary embolus and even . The patient favors the benefits over the risks as do the family members and they do wish to proceed with surgery as outlined above. Written consent obtained and the surgical site has been marked. MD THERESE Ardon/DEBRA /3:45 PM /3:52 PM
[2016-05-05] MEDS ORDERED: KETAMINE HCL 500 MG/5 ML VIAL ONE (16:06)
[2016-05-05] MEDS ORDERED: ENOX30P SQ (17:14)
[2016-05-05] MEDS ORDERED: HYDR-3288 PO (17:14)
[2016-05-05] MEDS ORDERED: TRANEXAMIC ACID INJ 1,000 MG in SODIUM CHLORIDE 0.9% INJ 100 ML IV SCH (17:15)
--- NOTE | 2016-05-05 17:40 | RADRPT ---
EXAM DATE/TIME: 05/05/2016 17:06 [facility] COMPARISON: No previous studies available for comparison. INDICATIONS : ORIF Left hip troch nail. MEDICAL HISTORY : None. SURGICAL HISTORY : None. ENCOUNTER: Initial ACUITY: 1 day PAIN SCORE: Non-responsive. LOCATION: Left hip. FINDINGS: The patient is status post ORIF of left proximal femur fracture. Hardware appears to be adequate in position. CONCLUSION: 1. Status post ORIF of left proximal femur fracture with hardware in adequate position. Aris Watkins MD on May 05, 2016 at 17:36 Board Certified Radiologist. This report was verified electronically.
[2016-05-05] MEDS: DEXT 5%-NACL 0.45% 1000 ML INJ 1,000 ML IV SCH (17:45)
[2016-05-05] MEDS ORDERED: MIDAZOLAM HCL 2 MG/2 ML VIAL ONE (17:50)
[2016-05-05] MEDS ORDERED: DO NOT ADM ANY ANTICOAGULANT DRUGS XX PRN (18:15)
--- NOTE | 2016-05-05 18:51 | MP ---
cc: HELIO LOMBARDO M.D. DATE OF SURGERY: 05/05/2016. PREOPERATIVE DIAGNOSIS: Left intertrochanteric hip fracture. POSTOPERATIVE DIAGNOSES: Left intertrochanteric hip fracture. OPERATIVE PROCEDURE PERFORMED: Intramedullary nailing of left intertrochanteric hip fracture. SURGEON: Dr. Helio Lombardo. SPRINKLER FITTER: Radha Fraire ANESTHESIA: General. ESTIMATED BLOOD LOSS: 100 cc. COMPLICATIONS: None. IMPLANTS USED: Synthes. JUSTIFICATION FOR THE PROCEDURE: This patient is an 89-year female who fell staining a left displaced intertrochanteric hip fracture. She was evaluated by the undersigned after the medical service requested a consultation. The patient as well as the patient's daughter were counseled as to the risks, benefits, and alternatives to the above-named surgical procedure and they did wish to proceed with surgery. DESCRIPTION OF THE PROCEDURE IN DETAIL: Written consent obtained. The patient was identified by name and taken to the operating room and placed supine. General anesthesia was administered as well as 2 grams of IV Ancef and 1 gram of IV Vancomycin. The left foot was placed in a padded traction boot. The right leg was placed in the well leg fajardo. The left lower extremity was prepped and draped using isopropyl alcohol, Hibiclens solution and Chloraprep solution. After an appropriate time-out was performed, a longitudinal incision was made over the lateral aspect of the left hip. A guidewire was used to gain entrance into the intramedullary canal of the femur and this was followed by a cannulated entry reamer. Subsequently a Synthes titanium trochanteric femoral nail was inserted into the intramedullary canal of the femur. The 130 degree locking jig was used to place a guide pin centered in the femoral head on the AP and lateral fluoroscopic projections. This was followed by placement of 8 mm trial blade. The top locking screw was secured. . Distally the locking jig was used to place a single lateral to medial transverse static locking screw. Fluoroscopic imaging again confirmed hardware placement and fracture reduction. The surgical wound was thoroughly irrigated with sterile saline solution. The fascial layer was closed with #1 Vicryl suture in this layer. The subcutaneous layer was closed with 3-0 Vicryl suture. Skin was closed wally. Sterile dressing applied. The patient tolerated the procedure well. NOTE: Smith Camacho, physician buyer assistant-certified, was present during the entire procedure to include patient positioning and the procedure itself. The medical necessity of a physician buyer assistant was indicated in this case due to the complexity of the procedure. He assisted with appropriate manipulation of the leg and also retraction of muscle, tendon and bone. He assisted with both achieving and maintaining fracture reduction along with implantation of the internal fixation device. MD THERESE Ardon/DEBRA /5:12 PM /6:42 PM
--- NOTE | 2016-05-05 20:38 | PD.CARD.PN ---
Subjective Subjective Remarks s/p noncardiac surgery Objective Vital Signs / I&O Vital Signs Date Time Temp Pulse Resp B/P Pulse Ox O2 Delivery O2 Flow Rate FiO2 05/05/16 19:37 97 Nasal Cannula 2.00 05/05/16 18:30 97.8 76 16 124/69 97 Nasal Cannula 2 05/05/16 18:15 68 20 159/74 96 05/05/16 18:00 70 16 155/82 98 Nasal Cannula 2 05/05/16 17:45 69 20 162/74 100 Simple Mask 6 05/05/16 17:38 97.6 83 12 130/72 99 Simple Mask 6 05/05/16 15:42 97.0 65 17 140/67 93 05/05/16 12:51 96.0 64 18 170/83 98 05/05/16 11:12 190/83 05/05/16 10:50 96.4 83 20 190/92 99 05/05/16 08:00 96.8 60 20 181/78 96 05/05/16 08:00 57 05/05/16 07:30 98 Nasal Cannula 2.00 05/05/16 05:00 97.5 62 16 187/88 97 05/05/16 04:00 96.0 54 20 167/84 100 05/05/16 03:00 96.0 55 20 166/85 99 05/05/16 02:00 95.9 64 18 182/92 98 05/05/16 00:00 98.0 60 20 172/82 98 I/O 05/04/16 05/04/16 05/04/16 05/05/16 05/05/16 05/05/16 07:00 15:00 23:00 07:00 15:00 23:00 Intake Total 750 ml 120 ml 120 ml 500 ml Output Total 675 ml Balance 750 ml 120 ml 120 ml -175 ml Intake Oral 750 ml 120 ml 120 ml Other 500 ml Output Urine Total 175 ml Estimated Blood Loss 100 ml Other 400 ml # Voids 1 3 2 2 2 # Bowel Movements 1 2 0 0 Physical Exam GENERAL: SKIN: Warm and dry. HEAD: Normocephalic. EYES: No scleral icterus. No injection or drainage. NECK: Supple, trachea midline. No JVD or lymphadenopathy. CARDIOVASCULAR: Regular rate and rhythm without murmurs, gallops, or rubs. RESPIRATORY: Breath sounds equal bilaterally. No accessory muscle use. GASTROINTESTINAL: Abdomen soft, non-tender, nondistended. MUSCULOSKELETAL: No cyanosis, or edema. BACK: Nontender without obvious deformity. No CVA tenderness. Laboratory Laboratory Tests Test 05/05/16 05:55 White Blood Count 11.3 TH/MM3 Red Blood Count 3.42 MIL/MM3 Hemoglobin 10.1 GM/DL Hematocrit 30.4 % Mean Corpuscular Volume 88.8 FL Mean Corpuscular Hemoglobin 29.6 PG Mean Corpuscular Hemoglobin 33.4 % Concent Red Cell Distribution Width 13.8 % Platelet Count 146 TH/MM3 Mean Platelet Volume 8.9 FL Neutrophils (%) (Auto) 93.3 % Lymphocytes (%) (Auto) 4.7 % Monocytes (%) (Auto) 2.0 % Eosinophils (%) (Auto) 0.0 % Basophils (%) (Auto) 0.0 % Neutrophils # (Auto) 10.6 TH/MM3 Lymphocytes # (Auto) 0.5 TH/MM3 Monocytes # (Auto) 0.2 TH/MM3 Eosinophils # (Auto) 0.0 TH/MM3 Basophils # (Auto) 0.0 TH/MM3 CBC Comment DIFF FINAL Differential Comment Sodium Level 143 MEQ/L Potassium Level 2.6 MEQ/L Chloride Level 100 MEQ/L Carbon Dioxide Level 31.2 MEQ/L Anion Gap 12 MEQ/L Blood Urea Nitrogen 53 MG/DL Creatinine 1.40 MG/DL Estimat Glomerular Filtration 35 ML/MIN Rate Random Glucose 158 MG/DL Calcium Level 7.8 MG/DL Total Bilirubin 0.5 MG/DL Aspartate Amino Transf 9 U/L (AST/SGOT) Alanine Aminotransferase 18 U/L (ALT/SGPT) Alkaline Phosphatase 40 U/L Total Protein 6.4 GM/DL Albumin 2.4 GM/DL Assessment and Plan Problem List: (1) SOB (shortness of breath) (2) Pleural effusion (3) Hypothyroid (4) NSTEMI (non-ST elevated myocardial infarction) (5) HTN (hypertension) (6) COPD (chronic obstructive pulmonary disease) (7) Congestive heart failure (8) Elevated troponin (9) PNA (pneumonia) (10) CAD (coronary artery disease) (11) Cardiomyopathy Assessment and Plan 1.) CAD/cardiomyopathy - continue aspirin, lipitor, lasix, hctz, losartan, beta blockers held d/t rad; rx of copd/pneumonia per Dr Pizarro; pod #0, hd'ly stable Problem Qualifiers (1) PNA (pneumonia): Qualified Code: J18.9 - Pneumonia of left lung due to infectious organism, unspecified part of lung Camacho Balbuena MD May 05, 2016 20:38
[2016-05-05] MEDS: SODIUM CHLORIDE 0.9% FLUSH 5 ML FLUSH IVF SCH (20:42)
[2016-05-05] MEDS: ACETAMINOPHEN 325 MG TAB PO PRN (20:42)
[2016-05-05] MEDS: DOCUSATE SODIUM 50 MG/SENNA 8.6 MG TAB PO SCH (20:42)
[2016-05-06] VITALS (15 sets, daily range): BP systolic 73–135; BP diastolic 45–77; PULSE 50–90; RESP 16–20; TEMP 96–98.3; O2SAT 92–100
[2016-05-06] MEDS: methylPREDNISolone SOD SUCC 125 MG/2 ML VIAL IV PUSH SCH ×4 (00:22→20:15)
[2016-05-06] MEDS: DEXT 5%-NACL 0.45% 1000 ML INJ 1,000 ML IV SCH ×3 (02:00→20:16)
[2016-05-06] MEDS: CEFEPIME INJ 1,000 MG in SODIUM CHLORIDE 0.9% INJ 100 ML IV SCH ×3 (02:39→17:50)
[2016-05-06] MEDS: LEVOTHYROXINE SODIUM 50 MCG TAB PO SCH (05:58)
[2016-05-06] MEDS: ACETAMINOPHEN 325 MG TAB PO PRN (05:59)
[2016-05-06] MEDS: guaiFENesin/CODEINE SYRUP 200 MG/20 MG/10 ML CUP PO PRN (06:02)
[2016-05-06 06:20] LABS: AUTOMATED NEUTROPHIL # 10.7 TH/MM3 (1.8-7.7); HEMATOCRIT 22.6 % (35.0-46.0); HEMO FLAGS DIFF FINAL; LYMPH % 3.1 % (9.0-44.0); LYMPHOCYTE # 0.4 TH/MM3 (1.0-4.8); MEAN CELL VOLUME 87.1 FL (80.0-100.0); MEAN CORPUSCULAR HEMOGLOBIN 30.1 PG (27.0-34.0); MEAN CORPUSCULAR HGB CONC 34.5 % (32.0-36.0); MONO % 4.4 % (0.0-8.0); NEUT % 92.5 % (16.0-70.0); PLATELET COUNT 134 TH/MM3 (150-450); RED BLOOD COUNT 2.59 MIL/MM3 (4.00-5.30); RED CELL DISTRIBUTION WIDTH 14.5 % (11.6-17.2); WHITE BLOOD COUNT 11.6 TH/MM3 (4.0-11.0)
[2016-05-06 07:21] LABS: BICARBONATE 33.4 MEQ/L (21.0-32.0); CALCIUM-PROTEIN CORRECTED 8.3 MG/DL (8.5-10.1); TOTAL BILIRUBIN ADULT 0.6 MG/DL (0.2-1.0)
[2016-05-06 07:46] LABS: POTASSIUM 2.8 MEQ/L (3.5-5.1)
[2016-05-06] MEDS: RESP: ALBUTEROL 2.5 MG/IPRATROPIUM 0.5 MG NEB (SCH) NEB ×3 (08:14→22:13)
[2016-05-06] MEDS: SODIUM CHLORIDE 0.9% FLUSH 5 ML FLUSH IVF SCH ×2 (08:20→20:15)
[2016-05-06] MEDS: FUROSEMIDE 20 MG TAB PO SCH ×2 (08:20→17:54)
[2016-05-06] MEDS: FUROSEMIDE 20 MG/2 ML VIAL IV PUSH SCH (08:20)
[2016-05-06] MEDS: HYDROCHLOROTHIAZIDE 12.5 MG CAP PO SCH (08:20)
[2016-05-06] MEDS: guaiFENesin E.R. 600 MG TAB PO SCH ×2 (09:00→20:15)
[2016-05-06] MEDS: MULTIVITAMINS/MINERALS THERAPEUTIC TAB PO SCH (09:00)
[2016-05-06] MEDS: ISOSORBIDE MONONITRATE 30 MG TAB PO SCH ×2 (09:00→20:15)
[2016-05-06] MEDS: ATORVASTATIN 10 MG TAB PO SCH (09:00)
[2016-05-06] MEDS: DOCUSATE SODIUM 50 MG/SENNA 8.6 MG TAB PO SCH ×2 (09:00→20:15)
[2016-05-06] MEDS: CITALOPRAM HYDROBROMIDE 20 MG TAB PO SCH (09:00)
[2016-05-06] MEDS: LOSARTAN 50 MG TAB PO SCH (09:00)
--- NOTE | 2016-05-06 11:55 | HHI.PR ---
Subjective History of Present Illness Patient s/p fall have left hip fracture S/P ORIF. D/W RN Teddy at bed side. cardiology input noted D/W daughter in detail at bed side understand patient condition and out come. Hypokalemia...will replace and monitor Magnasium normal. have low BP Holding BP Medicine. Low Hgb will get one unit PRBC transfusion. Review of Systems Constitutional Constitutional: Fatigue, Weakness Pulmonary Respiratory: Shortness of Breath, Wheezing Musculoskeletal MS Remarks left hip pain. Vitals/Results Intake & Output 05/05/16 05/05/16 05/06/16 15:00 23:00 07:00 Intake Total 740 ml 240 ml Output Total 1200 ml 550 ml Balance -460 ml -310 ml Intake Oral 240 ml 240 ml Other 500 ml Output Urine Total 700 ml 550 ml Estimated Blood Loss 100 ml Other 400 ml # Voids 2 # Bowel Movements 0 0 Vital Signs Vital Signs Date Time Temp Pulse Resp B/P Pulse Ox O2 Delivery O2 Flow Rate FiO2 05/06/16 11:32 104/54 Automatic Cuff Manual Cuff/Auscultation 05/06/16 10:35 74/46 Automatic Cuff 05/06/16 10:30 73/45 Manual Cuff/Auscultation 05/06/16 08:20 Nasal Cannula 2.00 05/06/16 08:17 97 Nasal Cannula 2.00 05/06/16 08:00 96.6 50 18 93/64 98 05/06/16 04:31 96.2 66 19 104/56 92 05/06/16 00:13 96.0 62 20 135/69 96 05/05/16 21:15 97.9 75 19 132/67 100 05/05/16 21:01 Nasal Cannula 2.00 05/05/16 19:37 97 Nasal Cannula 2.00 05/05/16 18:30 97.8 76 16 124/69 97 Nasal Cannula 2 05/05/16 18:15 68 20 159/74 96 05/05/16 18:00 70 16 155/82 98 Nasal Cannula 2 05/05/16 17:45 69 20 162/74 100 Simple Mask 6 05/05/16 17:38 97.6 83 12 130/72 99 Simple Mask 6 05/05/16 15:42 97.0 65 17 140/67 93 05/05/16 12:51 96.0 64 18 170/83 98 CBC/BMP: 05/06/16 0537 05/06/16 0537 Lab Results Laboratory Tests Test 05/06/16 05:37 White Blood Count 11.6 TH/MM3 Red Blood Count 2.59 MIL/MM3 Hemoglobin 7.8 GM/DL Hematocrit 22.6 % Mean Corpuscular Volume 87.1 FL Mean Corpuscular Hemoglobin 30.1 PG Mean Corpuscular Hemoglobin 34.5 % Concent Red Cell Distribution Width 14.5 % Platelet Count 134 TH/MM3 Mean Platelet Volume 9.2 FL Neutrophils (%) (Auto) 92.5 % Lymphocytes (%) (Auto) 3.1 % Monocytes (%) (Auto) 4.4 % Eosinophils (%) (Auto) 0.0 % Basophils (%) (Auto) 0.0 % Neutrophils # (Auto) 10.7 TH/MM3 Lymphocytes # (Auto) 0.4 TH/MM3 Monocytes # (Auto) 0.5 TH/MM3 Eosinophils # (Auto) 0.0 TH/MM3 Basophils # (Auto) 0.0 TH/MM3 CBC Comment DIFF FINAL Differential Comment Sodium Level 140 MEQ/L Potassium Level 2.8 MEQ/L Chloride Level 98 MEQ/L Carbon Dioxide Level 33.4 MEQ/L Anion Gap 9 MEQ/L Blood Urea Nitrogen 48 MG/DL Creatinine 1.46 MG/DL Estimat Glomerular Filtration 34 ML/MIN Rate Random Glucose 185 MG/DL Calcium Level 7.4 MG/DL Protein Corrected Calcium 8.3 MG/DL Total Bilirubin 0.6 MG/DL Aspartate Amino Transf 8 U/L (AST/SGOT) Alanine Aminotransferase 18 U/L (ALT/SGPT) Alkaline Phosphatase 35 U/L Total Protein 5.5 GM/DL Albumin 2.1 GM/DL Physical Exam General General Appearance: No Acute Distress, Comfortable Eyes Eye Exam: Pupils Equal, Pupils Reactive, Sclera White, Extraocular Movement Intact Ears & Nose Ears & Nose Exam: Nasal Mucosa [place] Throat Throat Exam: Oral Mucosa [place] & Moist, Oral Pharynx Normal Neck Neck Exam: Neck Supple, Trachea Midline Pulmonary Resp Exam: Crackles, Rhonchi Resp Remarks Bilateral wheezing. Cardiology CV Exam: Regular, Normal Sinus Rhythm Gastrointestinal/Abdomen GI Exam: Soft, Non-Tender, Bowel Sounds Present Musculoskeletal MS Remarks Left hip tenderness. Integumentary Skin Exam: Clear, Warm, Dry, Intact Extremeties Extremities Exam: No Edema Neurologic Neuro Exam: Alert, Awake, Speech Clear, Moving All Extremities, No Focal Deficits Psychiatric Psych Exam: Appropriate Responses VTE Prophylaxis VTE Prophylaxis Device: SCDs PUD Prophylasis PUD Prophylaxis: Protonix Assessment/Plan Assessment/Plan ASSESSMENT AND PLAN This is an 89-year-old female who came to the emergency room, diagnosed with shortness of breath most probably secondary to COPD exacerbation/pneumonia. 1. The patient is on Zithromax 500 mg IV 24 hours, cefepime 1 gram IV q. 8 hours. The patient also on DuoNeb nebulization. patient on Solu-Medrol 40 mg IV q. 6 hours. Pulmonary Input noted. Further recommendations per Pulmonary. 2. History of congestive heart failure. Patient has chronic systolic heart failure, does not look like an acute decompensation. Patient's BNP was high. cardiology. input noted. The patient is on Lasix 40 mg daily. 3. History of hyperlipidemia. Continue Lipitor 10 mg p.o. p.o. daily. 4. History of coronary artery disease. Continue home medication. 5. History of hypothyroidism. Continue the home medication. 6. History of hypertension. Continue the home medication. We will monitor blood pressure. 7. History of anxiety. Continue with Xanax 0.5 mg p.o. q. 6 hours p.r.n. anxiety. 8. History of arthritis. Continue with Tramadol. 9. DVT Prophylaxis. SCD. 10 GI Prophylaxis...Protonix 40 mg PO Daily. 11. S/P Fall leading to left Femur Intertronchatric fracture Orthopedic input noted S/P ORIF. 12. Hypokalemia...will replace and monitor Magnasium normal. 13. Acute Blood loss Anemia.. getting 1 unit PRBC Transfusion. We are going to manage the patient on a daily basis and make recommendations on a daily basis. Discussed Condition with: Patient Sarabjit Monroe MD May 06, 2016 11:55
[2016-05-06] MEDS: AZITHROMYCIN INJ 500 MG in SODIUM CHLOR 0.9% 250 ML INJ 250 ML IV SCH (12:09)
--- NOTE | 2016-05-06 12:45 | PD.ORT.PN ---
Subjective Post Op Day #: 1 Subjective Remarks light headed when out of bed this am, currently lying in bed, nad, getting K supplement iv Objective Vitals Vital Signs Date Time Temp Pulse Resp B/P Pulse Ox O2 Delivery O2 Flow Rate FiO2 05/06/16 12:00 98.0 70 18 109/56 100 05/06/16 11:32 104/54 Automatic Cuff Manual Cuff/Auscultation 05/06/16 10:35 74/46 Automatic Cuff 05/06/16 10:30 73/45 Manual Cuff/Auscultation 05/06/16 08:20 Nasal Cannula 2.00 05/06/16 08:17 97 Nasal Cannula 2.00 05/06/16 08:00 96.6 50 18 93/64 98 05/06/16 04:31 96.2 66 19 104/56 92 05/06/16 00:13 96.0 62 20 135/69 96 05/05/16 21:15 97.9 75 19 132/67 100 05/05/16 21:01 Nasal Cannula 2.00 05/05/16 19:37 97 Nasal Cannula 2.00 05/05/16 18:30 97.8 76 16 124/69 97 Nasal Cannula 2 05/05/16 18:15 68 20 159/74 96 05/05/16 18:00 70 16 155/82 98 Nasal Cannula 2 05/05/16 17:45 69 20 162/74 100 Simple Mask 6 05/05/16 17:38 97.6 83 12 130/72 99 Simple Mask 6 05/05/16 15:42 97.0 65 17 140/67 93 05/05/16 12:51 96.0 64 18 170/83 98 I/O 05/05/16 05/05/16 05/05/16 05/06/16 05/06/16 05/06/16 07:00 15:00 23:00 07:00 15:00 23:00 Intake Total 120 ml 740 ml 240 ml Output Total 1200 ml 550 ml Balance 120 ml -460 ml -310 ml Intake Oral 120 ml 240 ml 240 ml Other 500 ml Output Urine Total 700 ml 550 ml Estimated Blood Loss 100 ml Other 400 ml # Voids 2 2 # Bowel Movements 0 0 0 Result Diagram: 05/06/16 0537 05/06/16 0537 Assessment & Plan Ortho Post Op Day #: 1 Problem List: Assessment and Plan s/p right troch nail K 2.8. receving K supplement transfuse one unit prbc [id number] lovenox , scd's therapy daughter at bedside, all questions answered Baljeet Lee MD May 06, 2016 12:45
[2016-05-06] MEDS: POTASSIUM CHLOR 20 MEQ PREMIX 100 ML IV SCH ×3 (12:57→17:54)
--- NOTE | 2016-05-06 13:36 | PD.CARD.PN ---
Subjective Subjective Remarks alert in nad Objective Vital Signs / I&O Vital Signs Date Time Temp Pulse Resp B/P Pulse Ox O2 Delivery O2 Flow Rate FiO2 05/06/16 12:00 98.0 70 18 109/56 100 05/06/16 11:32 104/54 Automatic Cuff Manual Cuff/Auscultation 05/06/16 10:35 74/46 Automatic Cuff 05/06/16 10:30 73/45 Manual Cuff/Auscultation 05/06/16 08:20 Nasal Cannula 2.00 05/06/16 08:17 97 Nasal Cannula 2.00 05/06/16 08:00 96.6 50 18 93/64 98 05/06/16 04:31 96.2 66 19 104/56 92 05/06/16 00:13 96.0 62 20 135/69 96 05/05/16 21:15 97.9 75 19 132/67 100 05/05/16 21:01 Nasal Cannula 2.00 05/05/16 19:37 97 Nasal Cannula 2.00 05/05/16 18:30 97.8 76 16 124/69 97 Nasal Cannula 2 05/05/16 18:15 68 20 159/74 96 05/05/16 18:00 70 16 155/82 98 Nasal Cannula 2 05/05/16 17:45 69 20 162/74 100 Simple Mask 6 05/05/16 17:38 97.6 83 12 130/72 99 Simple Mask 6 05/05/16 15:42 97.0 65 17 140/67 93 I/O 05/05/16 05/05/16 05/05/16 05/06/16 05/06/16 05/06/16 07:00 15:00 23:00 07:00 15:00 23:00 Intake Total 120 ml 740 ml 240 ml Output Total 1200 ml 550 ml Balance 120 ml -460 ml -310 ml Intake Oral 120 ml 240 ml 240 ml Other 500 ml Output Urine Total 700 ml 550 ml Estimated Blood Loss 100 ml Other 400 ml # Voids 2 2 # Bowel Movements 0 0 0 Physical Exam GENERAL: SKIN: Warm and dry. HEAD: Normocephalic. EYES: No scleral icterus. No injection or drainage. NECK: Supple, trachea midline. No JVD or lymphadenopathy. CARDIOVASCULAR: Regular rate and rhythm without murmurs, gallops, or rubs. RESPIRATORY: Breath sounds equal bilaterally. No accessory muscle use. GASTROINTESTINAL: Abdomen soft, non-tender, nondistended. MUSCULOSKELETAL: No cyanosis, or edema. BACK: Nontender without obvious deformity. No CVA tenderness. Laboratory Laboratory Tests Test 05/06/16 05:37 White Blood Count 11.6 TH/MM3 Red Blood Count 2.59 MIL/MM3 Hemoglobin 7.8 GM/DL Hematocrit 22.6 % Mean Corpuscular Volume 87.1 FL Mean Corpuscular Hemoglobin 30.1 PG Mean Corpuscular Hemoglobin 34.5 % Concent Red Cell Distribution Width 14.5 % Platelet Count 134 TH/MM3 Mean Platelet Volume 9.2 FL Neutrophils (%) (Auto) 92.5 % Lymphocytes (%) (Auto) 3.1 % Monocytes (%) (Auto) 4.4 % Eosinophils (%) (Auto) 0.0 % Basophils (%) (Auto) 0.0 % Neutrophils # (Auto) 10.7 TH/MM3 Lymphocytes # (Auto) 0.4 TH/MM3 Monocytes # (Auto) 0.5 TH/MM3 Eosinophils # (Auto) 0.0 TH/MM3 Basophils # (Auto) 0.0 TH/MM3 CBC Comment DIFF FINAL Differential Comment Sodium Level 140 MEQ/L Potassium Level 2.8 MEQ/L Chloride Level 98 MEQ/L Carbon Dioxide Level 33.4 MEQ/L Anion Gap 9 MEQ/L Blood Urea Nitrogen 48 MG/DL Creatinine 1.46 MG/DL Estimat Glomerular Filtration 34 ML/MIN Rate Random Glucose 185 MG/DL Calcium Level 7.4 MG/DL Protein Corrected Calcium 8.3 MG/DL Total Bilirubin 0.6 MG/DL Aspartate Amino Transf 8 U/L (AST/SGOT) Alanine Aminotransferase 18 U/L (ALT/SGPT) Alkaline Phosphatase 35 U/L Total Protein 5.5 GM/DL Albumin 2.1 GM/DL Assessment and Plan Problem List: (1) SOB (shortness of breath) (2) Pleural effusion (3) Hypothyroid (4) NSTEMI (non-ST elevated myocardial infarction) (5) HTN (hypertension) (6) COPD (chronic obstructive pulmonary disease) (7) Congestive heart failure (8) Elevated troponin (9) PNA (pneumonia) (10) CAD (coronary artery disease) (11) Cardiomyopathy Assessment and Plan 1.) CAD/cardiomyopathy - continue aspirin, lipitor, lasix, hctz, losartan, beta blockers held d/t rad; rx of copd/pneumonia per Dr Pizarro; pod #1, hd'ly stable 2.) ?PAF - in nsr with pacs on tele, ac held d/t recent surgery, replete electrolytes prn Problem Qualifiers (1) PNA (pneumonia): Qualified Code: J18.9 - Pneumonia of left lung due to infectious organism, unspecified part of lung Camacho Balbuena MD May 06, 2016 13:36
[2016-05-06] MEDS ORDERED: SODIUM CHLOR 0.9% 250 ML INJ 250 ML IV SCH (16:00)
[2016-05-06] MEDS ORDERED: SODIUM CHLOR 0.9% 250 ML INJ 250 ML IV ONE (16:30)
[2016-05-06] MEDS: ENOXAPARIN SODIUM 30 MG/0.3 ML SYRINGE SQ SCH (16:31)
--- NOTE | 2016-05-06 19:31 | HHI.PR ---
Subjective Remarks Had a fall and Fractured the left Hip . Underwent ORIF last PM. Now on O2 at 2 L. No wheezing. Objective Vital Signs Date Time Temp Pulse Resp B/P Pulse Ox O2 Delivery O2 Flow Rate FiO2 05/06/16 17:00 122/77 05/06/16 16:00 97.3 90 18 103/54 99 05/06/16 12:00 98.0 70 18 109/56 100 05/06/16 11:32 104/54 Automatic Cuff Manual Cuff/Auscultation 05/06/16 10:35 74/46 Automatic Cuff 05/06/16 10:30 73/45 Manual Cuff/Auscultation 05/06/16 08:20 Nasal Cannula 2.00 05/06/16 08:17 97 Nasal Cannula 2.00 05/06/16 08:00 96.6 50 18 93/64 98 05/06/16 04:31 96.2 66 19 104/56 92 05/06/16 00:13 96.0 62 20 135/69 96 05/05/16 21:15 97.9 75 19 132/67 100 05/05/16 21:01 Nasal Cannula 2.00 05/05/16 19:37 97 Nasal Cannula 2.00 I/O 05/05/16 05/05/16 05/05/16 05/06/16 05/06/16 05/06/16 07:00 15:00 23:00 07:00 15:00 23:00 Intake Total 120 ml 740 ml 240 ml 1696 ml 250 ml Output Total 1200 ml 550 ml 450 ml Balance 120 ml -460 ml -310 ml 1246 ml 250 ml Intake Oral 120 ml 240 ml 240 ml 960 ml Other 500 ml 736 ml 250 ml Output Urine Total 700 ml 550 ml 450 ml Estimated Blood Loss 100 ml Other 400 ml # Voids 2 2 # Bowel Movements 0 0 0 0 Result Diagram: 05/06/16 0537 05/06/16 1746 Objective Remarks GENERAL: This elderly averagely built white female who is pale, alert and moderately dyspneic and sitting upright. VITAL SIGNS: Blood pressure 130/60, pulse 80, respirations 22, temperature 98.2. HEENT: Head normocephalic. Pupils are reactive. Nasal mucosa injected. Throat was clear. NECK: Supple. No bruits or thyroid enlargement. CHEST: Equal movements. Expiratory wheezes scattered throughout both lung conner with prolonged expirations with occasional crackles at both lung bases. HEART: The heart sounds are regular, S1-S2. No murmur. No S3 gallop. ABDOMEN: Soft, protuberant. No masses or organomegaly or tenderness. Her bowel sounds are active. EXTREMITIES: Mild varicosities. No edema. left leg dressing. Neuro: 1 + reflexes.Cranial nerves grossly intact. RECTAL: Exam is deferred. SKIN: No lesions. Assessment and Plan Assessment and Plan IMPRESSION 1. COPD with acute exacerbation. 2. Asthmatic bronchitis. 3. Cardiomyopathy and systolic heart failure. 4. Hypothyroidism. 5. Hyperlipidemia. 6. Left basilar pneumonia with effusion. 7. S/P ORIF left Hip Fracture. 8. Anemia Plan; 1. Transfuse 1 Unit Red cells. 2. Taper solumedrol and switch to prednisone 20 mg daily. 3. O2 at 2 L. 4. Cont Antibiotics. 5. Chest X ray ,CBC,BMP in am Lexi Thakkar MD May 06, 2016 19:31
[2016-05-07] VITALS (9 sets, daily range): BP systolic 116–190; BP diastolic 56–82; PULSE 68–85; RESP 16–18; TEMP 96.3–98.8; O2SAT 95–100
[2016-05-07] MEDS: CEFEPIME INJ 1,000 MG in SODIUM CHLORIDE 0.9% INJ 100 ML IV SCH ×3 (01:14→17:38)
[2016-05-07] MEDS: LEVOTHYROXINE SODIUM 50 MCG TAB PO SCH (05:54)
[2016-05-07 06:12] LABS: AUTOMATED NEUTROPHIL # 10.6 TH/MM3 (1.8-7.7); HEMATOCRIT 26.5 % (35.0-46.0); HEMO FLAGS DIFF FINAL; LYMPH % 3.7 % (9.0-44.0); LYMPHOCYTE # 0.4 TH/MM3 (1.0-4.8); MEAN CORPUSCULAR HEMOGLOBIN 29.4 PG (27.0-34.0); MEAN CORPUSCULAR HGB CONC 33.8 % (32.0-36.0); MONO % 4.4 % (0.0-8.0); NEUT % 91.9 % (16.0-70.0); PLATELET COUNT 125 TH/MM3 (150-450); RED BLOOD COUNT 3.04 MIL/MM3 (4.00-5.30); RED CELL DISTRIBUTION WIDTH 14.4 % (11.6-17.2); WHITE BLOOD COUNT 11.5 TH/MM3 (4.0-11.0)
[2016-05-07 06:34] LABS: ALKALINE PHOSPHATASE 41 U/L (45-117); ALT (GPT) 15 U/L (10-53); ANION GAP 7 MEQ/L (5-15); AST (GOT) 7 U/L (15-37); BICARBONATE 31.7 MEQ/L (21.0-32.0); BLOOD UREA NITROGEN 46 MG/DL (7-18); CHLORIDE 101 MEQ/L (98-107); GLOMERULAR FILTRATION RATE 37 ML/MIN (>89); SODIUM (NA) 140 MEQ/L (136-145); TOTAL BILIRUBIN ADULT 0.5 MG/DL (0.2-1.0)
--- NOTE | 2016-05-07 06:56 | RADRPT ---
EXAM DATE/TIME: 05/07/2016 05:41 [facility] COMPARISON: CHEST SINGLE AP, May 01, 2016, 10:17. INDICATIONS : Short of breath, evaluate edema MEDICAL HISTORY : Hypertension. Chronic obstructive pulmonary disease. SURGICAL HISTORY : hip surgery ENCOUNTER: Subsequent ACUITY: 1 week PAIN SCORE: Non-responsive. LOCATION: Bilateral chest FINDINGS: A single view of the chest demonstrates mild worsening left upper lobe and left basal consolidation. Heart enlarged. Right lung relatively clear.. The cardiomediastinal contours are unremarkable. Osse ous structures are intact. CONCLUSION: Worsening left lung consolidation. Noah Marcelino MD on May 07, 2016 at 6:50 Board Certified Radiologist. This report was verified electronically.
--- NOTE | 2016-05-07 07:57 | HHI.PR ---
Subjective History of Present Illness Patient s/p fall have left hip fracture S/P ORIF. D/W RN Teddy at bed side. cardiology input noted D/W daughter Odalis Duggan in detail understand patient condition and out come. Hypokalemia.. resolved.. BP Better Low Hgb S/ P one unit PRBC transfusion. Review of Systems Constitutional Constitutional: Fatigue, Weakness Pulmonary Respiratory: Shortness of Breath, Wheezing Musculoskeletal MS Remarks left hip pain. Vitals/Results Intake & Output 05/06/16 05/06/16 05/07/16 15:00 23:00 07:00 Intake Total 1696 ml 490 ml 240 ml Output Total 450 ml 300 ml 300 ml Balance 1246 ml 190 ml -60 ml Intake Oral 960 ml 240 ml 240 ml Other 736 ml 250 ml Output Urine Total 450 ml 300 ml 300 ml # Bowel Movements 0 0 0 Vital Signs Vital Signs Date Time Temp Pulse Resp B/P Pulse Ox O2 Delivery O2 Flow Rate FiO2 05/07/16 04:00 97.3 69 17 149/75 99 05/06/16 22:14 98 Nasal Cannula 2.00 05/06/16 20:00 98.3 78 16 117/57 98 05/06/16 17:00 122/77 05/06/16 16:00 97.3 90 18 103/54 99 05/06/16 12:00 98.0 70 18 109/56 100 05/06/16 11:32 104/54 Automatic Cuff Manual Cuff/Auscultation 05/06/16 10:35 74/46 Automatic Cuff 05/06/16 10:30 73/45 Manual Cuff/Auscultation 05/06/16 08:20 Nasal Cannula 2.00 05/06/16 08:17 97 Nasal Cannula 2.00 05/06/16 08:00 96.6 50 18 93/64 98 CBC/BMP: 05/07/16 0550 05/07/16 0550 Lab Results Laboratory Tests Test 05/06/16 05/06/16 05/07/16 16:45 17:46 05:50 Blood Type B POSITIVE B POSITIVE Antibody Screen NEGATIVE Crossmatch Leukocyte-Reduced Red Blood Cells Blood Bank Comment Potassium Level 3.6 MEQ/L 4.0 MEQ/L White Blood Count 11.5 TH/MM3 Red Blood Count 3.04 MIL/MM3 Hemoglobin 9.0 GM/DL Hematocrit 26.5 % Mean Corpuscular Volume 87.0 FL Mean Corpuscular Hemoglobin 29.4 PG Mean Corpuscular Hemoglobin 33.8 % Concent Red Cell Distribution Width 14.4 % Platelet Count 125 TH/MM3 Mean Platelet Volume 9.1 FL Neutrophils (%) (Auto) 91.9 % Lymphocytes (%) (Auto) 3.7 % Monocytes (%) (Auto) 4.4 % Eosinophils (%) (Auto) 0.0 % Basophils (%) (Auto) 0.0 % Neutrophils # (Auto) 10.6 TH/MM3 Lymphocytes # (Auto) 0.4 TH/MM3 Monocytes # (Auto) 0.5 TH/MM3 Eosinophils # (Auto) 0.0 TH/MM3 Basophils # (Auto) 0.0 TH/MM3 CBC Comment DIFF FINAL Differential Comment Sodium Level 140 MEQ/L Chloride Level 101 MEQ/L Carbon Dioxide Level 31.7 MEQ/L Anion Gap 7 MEQ/L Blood Urea Nitrogen 46 MG/DL Creatinine 1.36 MG/DL Estimat Glomerular Filtration 37 ML/MIN Rate Random Glucose 198 MG/DL Calcium Level 7.5 MG/DL Total Bilirubin 0.5 MG/DL Aspartate Amino Transf 7 U/L (AST/SGOT) Alanine Aminotransferase 15 U/L (ALT/SGPT) Alkaline Phosphatase 41 U/L Total Protein 5.8 GM/DL Albumin 2.4 GM/DL Physical Exam General General Appearance: No Acute Distress, Comfortable Eyes Eye Exam: Pupils Equal, Pupils Reactive, Sclera White, Extraocular Movement Intact Ears & Nose Ears & Nose Exam: Nasal Mucosa [place] Throat Throat Exam: Oral Mucosa [place] & Moist, Oral Pharynx Normal Neck Neck Exam: Neck Supple, Trachea Midline Pulmonary Resp Exam: Crackles, Rhonchi Resp Remarks Bilateral wheezing. Cardiology CV Exam: Regular, Normal Sinus Rhythm Gastrointestinal/Abdomen GI Exam: Soft, Non-Tender, Bowel Sounds Present Musculoskeletal MS Remarks Left hip tenderness. Integumentary Skin Exam: Clear, Warm, Dry, Intact Extremeties Extremities Exam: No Edema Neurologic Neuro Exam: Alert, Awake, Speech Clear, Moving All Extremities, No Focal Deficits Psychiatric Psych Exam: Appropriate Responses VTE Prophylaxis VTE Prophylaxis Device: SCDs VTE Prophylaxis Meds: Heparin PUD Prophylasis PUD Prophylaxis: Protonix Assessment/Plan Assessment/Plan ASSESSMENT AND PLAN This is an 89-year-old female who came to the emergency room, diagnosed with shortness of breath most probably secondary to COPD exacerbation/pneumonia. 1. The patient is on Zithromax 500 mg IV 24 hours, cefepime 1 gram IV q. 8 hours. The patient also on DuoNeb nebulization. patient on Solu-Medrol 40 mg IV q. 6 hours. Pulmonary Input noted. Further recommendations per Pulmonary. 2. History of congestive heart failure. Patient has chronic systolic heart failure, does not look like an acute decompensation. Patient's BNP was high. cardiology. input noted. The patient is on Lasix 40 mg daily. 3. History of hyperlipidemia. Continue Lipitor 10 mg p.o. p.o. daily. 4. History of coronary artery disease. Continue home medication. 5. History of hypothyroidism. Continue the home medication. 6. History of hypertension. Continue the home medication. We will monitor blood pressure. 7. History of anxiety. Continue with Xanax 0.5 mg p.o. q. 6 hours p.r.n. anxiety. 8. History of arthritis. Continue with Tramadol. 9. DVT Prophylaxis. SCD. 10 GI Prophylaxis...Protonix 40 mg PO Daily. 11. S/P Fall leading to left Femur Intertronchatric fracture Orthopedic input noted S/P ORIF. 12. Hypokalemia...resolved. and monitor Magnasium normal. 13. Acute Blood loss Anemia.. S/P 1 unit PRBC Transfusion. We are going to manage the patient on a daily basis and make recommendations on a daily basis. Check CBC with diff CMP in AM. Discussed Condition with: Patient Sarabjit Monroe MD May 07, 2016 07:57
[2016-05-07] MEDS: DEXT 5%-NACL 0.45% 1000 ML INJ 1,000 ML IV SCH ×2 (08:00→17:34)
[2016-05-07] MEDS: RESP: ALBUTEROL 2.5 MG/IPRATROPIUM 0.5 MG NEB (SCH) NEB ×3 (08:28→20:51)
[2016-05-07] MEDS: guaiFENesin E.R. 600 MG TAB PO SCH ×2 (08:55→21:12)
[2016-05-07] MEDS: CITALOPRAM HYDROBROMIDE 20 MG TAB PO SCH (08:55)
[2016-05-07] MEDS: DOCUSATE SODIUM 50 MG/SENNA 8.6 MG TAB PO SCH ×2 (08:55→21:12)
[2016-05-07] MEDS: ATORVASTATIN 10 MG TAB PO SCH (08:55)
[2016-05-07] MEDS: FUROSEMIDE 20 MG TAB PO SCH ×2 (08:55→17:34)
[2016-05-07] MEDS: HYDROCHLOROTHIAZIDE 12.5 MG CAP PO SCH (08:55)
[2016-05-07] MEDS: ISOSORBIDE MONONITRATE 30 MG TAB PO SCH ×2 (08:55→21:12)
[2016-05-07] MEDS: LOSARTAN 50 MG TAB PO SCH (08:55)
[2016-05-07] MEDS: MULTIVITAMINS/MINERALS THERAPEUTIC TAB PO SCH (08:56)
[2016-05-07] MEDS: FUROSEMIDE 20 MG/2 ML VIAL IV PUSH SCH (08:56)
[2016-05-07] MEDS: SODIUM CHLORIDE 0.9% FLUSH 5 ML FLUSH IVF SCH ×2 (08:56→21:00)
[2016-05-07] MEDS: methylPREDNISolone SOD SUCC 125 MG/2 ML VIAL IV PUSH SCH (08:56)
--- NOTE | 2016-05-07 09:41 | PD.ORT.PN ---
Subjective Post Op Day #: 2 Subjective Remarks pain tolerable Objective Vitals Vital Signs Date Time Temp Pulse Resp B/P Pulse Ox O2 Delivery O2 Flow Rate FiO2 05/07/16 08:28 99 Nasal Cannula 2.00 05/07/16 04:00 97.3 69 17 149/75 99 05/07/16 02:15 96.5 79 18 116/56 100 05/06/16 22:50 98.3 83 18 112/52 98 05/06/16 22:35 97.6 68 20 118/52 99 05/06/16 22:14 98 Nasal Cannula 2.00 05/06/16 20:14 99 Nasal Cannula 2.00 05/06/16 20:14 62 05/06/16 20:00 98.3 78 16 117/57 98 05/06/16 17:00 122/77 05/06/16 16:00 97.3 90 18 103/54 99 05/06/16 12:00 98.0 70 18 109/56 100 05/06/16 11:32 104/54 Automatic Cuff Manual Cuff/Auscultation 05/06/16 10:35 74/46 Automatic Cuff 05/06/16 10:30 73/45 Manual Cuff/Auscultation I/O 05/06/16 05/06/16 05/06/16 05/07/16 05/07/16 05/07/16 06:59 14:59 22:59 06:59 14:59 22:59 Intake Total 240 ml 1696 ml 490 ml 565 ml Output Total 550 ml 450 ml 300 ml 300 ml Balance -310 ml 1246 ml 190 ml 265 ml Intake Oral 240 ml 960 ml 240 ml 240 ml Packed Cells 325 ml Other 736 ml 250 ml Output Urine Total 550 ml 450 ml 300 ml 300 ml # Bowel Movements 0 0 0 0 Result Diagram: 05/07/16 0550 05/07/16 0550 Imaging Last 24 hours Impressions Chest X-Ray 05/07/16 0600 Signed Impressions: Service Date/Time: Saturday, May 07, 2016 05:41 - CONCLUSION: Worsening left lung consolidation. Noah Marcelino MD Objective Remarks in bed, nad dressing c/d/i neg homans appears nvi Assessment & Plan Ortho Post Op Day #: 2 Problem List: Assessment and Plan s/p right troch nail 50%pwb daily dressing changes transfused yesterday lovenox , scd's therapy f/up dr. mccarty 2 weeks Baljeet Camacho May 07, 2016 09:41
[2016-05-07] MEDS: AZITHROMYCIN INJ 500 MG in SODIUM CHLOR 0.9% 250 ML INJ 250 ML IV SCH (11:03)
--- NOTE | 2016-05-07 13:24 | PD.CARD.PN ---
Subjective Subjective Remarks alert in nad Objective Vital Signs / I&O Vital Signs Date Time Temp Pulse Resp B/P Pulse Ox O2 Delivery O2 Flow Rate FiO2 05/07/16 08:45 Nasal Cannula 2.00 05/07/16 08:45 185/82 05/07/16 08:28 99 Nasal Cannula 2.00 05/07/16 08:00 96.3 68 18 190/81 100 05/07/16 04:00 97.3 69 17 149/75 99 05/07/16 02:15 96.5 79 18 116/56 100 05/06/16 22:50 98.3 83 18 112/52 98 05/06/16 22:35 97.6 68 20 118/52 99 05/06/16 22:14 98 Nasal Cannula 2.00 05/06/16 20:14 99 Nasal Cannula 2.00 05/06/16 20:14 62 05/06/16 20:00 98.3 78 16 117/57 98 05/06/16 17:00 122/77 05/06/16 16:00 97.3 90 18 103/54 99 I/O 05/06/16 05/06/16 05/06/16 05/07/16 05/07/16 05/07/16 07:00 15:00 23:00 07:00 15:00 23:00 Intake Total 240 ml 1696 ml 490 ml 565 ml Output Total 550 ml 450 ml 300 ml 300 ml Balance -310 ml 1246 ml 190 ml 265 ml Intake Oral 240 ml 960 ml 240 ml 240 ml Packed Cells 325 ml Other 736 ml 250 ml Output Urine Total 550 ml 450 ml 300 ml 300 ml # Bowel Movements 0 0 0 0 Physical Exam GENERAL: SKIN: Warm and dry. HEAD: Normocephalic. EYES: No scleral icterus. No injection or drainage. NECK: Supple, trachea midline. No JVD or lymphadenopathy. CARDIOVASCULAR: Regular rate and rhythm without murmurs, gallops, or rubs. RESPIRATORY: Breath sounds equal bilaterally. No accessory muscle use. GASTROINTESTINAL: Abdomen soft, non-tender, nondistended. MUSCULOSKELETAL: No cyanosis, or edema. BACK: Nontender without obvious deformity. No CVA tenderness. Laboratory Laboratory Tests Test 05/06/16 05/06/16 05/07/16 16:45 17:46 05:50 Blood Type B POSITIVE B POSITIVE Antibody Screen NEGATIVE Crossmatch Leukocyte-Reduced Red Blood Cells Blood Bank Comment Potassium Level 3.6 MEQ/L 4.0 MEQ/L White Blood Count 11.5 TH/MM3 Red Blood Count 3.04 MIL/MM3 Hemoglobin 9.0 GM/DL Hematocrit 26.5 % Mean Corpuscular Volume 87.0 FL Mean Corpuscular Hemoglobin 29.4 PG Mean Corpuscular Hemoglobin 33.8 % Concent Red Cell Distribution Width 14.4 % Platelet Count 125 TH/MM3 Mean Platelet Volume 9.1 FL Neutrophils (%) (Auto) 91.9 % Lymphocytes (%) (Auto) 3.7 % Monocytes (%) (Auto) 4.4 % Eosinophils (%) (Auto) 0.0 % Basophils (%) (Auto) 0.0 % Neutrophils # (Auto) 10.6 TH/MM3 Lymphocytes # (Auto) 0.4 TH/MM3 Monocytes # (Auto) 0.5 TH/MM3 Eosinophils # (Auto) 0.0 TH/MM3 Basophils # (Auto) 0.0 TH/MM3 CBC Comment DIFF FINAL Differential Comment Sodium Level 140 MEQ/L Chloride Level 101 MEQ/L Carbon Dioxide Level 31.7 MEQ/L Anion Gap 7 MEQ/L Blood Urea Nitrogen 46 MG/DL Creatinine 1.36 MG/DL Estimat Glomerular Filtration 37 ML/MIN Rate Random Glucose 198 MG/DL Calcium Level 7.5 MG/DL Total Bilirubin 0.5 MG/DL Aspartate Amino Transf 7 U/L (AST/SGOT) Alanine Aminotransferase 15 U/L (ALT/SGPT) Alkaline Phosphatase 41 U/L Total Protein 5.8 GM/DL Albumin 2.4 GM/DL Assessment and Plan Problem List: (1) SOB (shortness of breath) (2) Pleural effusion (3) Hypothyroid (4) NSTEMI (non-ST elevated myocardial infarction) (5) HTN (hypertension) (6) COPD (chronic obstructive pulmonary disease) (7) Congestive heart failure (8) Elevated troponin (9) PNA (pneumonia) (10) CAD (coronary artery disease) (11) Cardiomyopathy Assessment and Plan 1.) CAD/cardiomyopathy - continue aspirin, lipitor, lasix, hctz, losartan, beta blockers held d/t rad; rx of copd/pneumonia per Dr Pizarro; pod #2, hd'ly unstable and anemic; i d/w daughter at length hemodynamic instability d/t perioperative state, anemia, arrythmia and uncertain pulmonary status and i rec letting bp run slightly high short term to avoid hypotensive events 2.) ?PAF - in nsr with pacs on tele, ac held d/t recent surgery, replete electrolytes prn, d/w patient and daughter, rec coumadin or xarelto or pradaxa or leiquis d/t chads score = 2 and increased risk of cva, patient and daughter understand risks and refuse, will continue aspirin 81 mg qd. Problem Qualifiers (1) PNA (pneumonia): Qualified Code: J18.9 - Pneumonia of left lung due to infectious organism, unspecified part of lung Camacho Balbuena MD May 07, 2016 13:24
[2016-05-07] MEDS: ENOXAPARIN SODIUM 30 MG/0.3 ML SYRINGE SQ SCH (17:34)
--- NOTE | 2016-05-07 20:00 | HHI.PR ---
Subjective Remarks S/P ORIF left hip fro fracture. Now on O2 at 2 L. c/o cough . has some chest congestion Objective Vital Signs Date Time Temp Pulse Resp B/P Pulse Ox O2 Delivery O2 Flow Rate FiO2 05/07/16 16:00 97.7 85 18 116/62 98 05/07/16 12:00 98.8 78 18 142/70 100 05/07/16 08:45 Nasal Cannula 2.00 05/07/16 08:45 185/82 05/07/16 08:28 99 Nasal Cannula 2.00 05/07/16 08:00 96.3 68 18 190/81 100 05/07/16 04:00 97.3 69 17 149/75 99 05/07/16 02:15 96.5 79 18 116/56 100 05/06/16 22:50 98.3 83 18 112/52 98 05/06/16 22:35 97.6 68 20 118/52 99 05/06/16 22:14 98 Nasal Cannula 2.00 05/06/16 20:14 99 Nasal Cannula 2.00 05/06/16 20:14 62 05/06/16 20:00 98.3 78 16 117/57 98 I/O 05/06/16 05/06/16 05/06/16 05/07/16 05/07/16 05/07/16 07:00 15:00 23:00 07:00 15:00 23:00 Intake Total 240 ml 1696 ml 490 ml 565 ml 960 ml Output Total 550 ml 450 ml 300 ml 300 ml 1200 ml Balance -310 ml 1246 ml 190 ml 265 ml -240 ml Intake Oral 240 ml 960 ml 240 ml 240 ml 960 ml Packed Cells 325 ml Other 736 ml 250 ml Output Urine Total 550 ml 450 ml 300 ml 300 ml 1200 ml # Bowel Movements 0 0 0 0 0 Result Diagram: 05/07/16 0550 05/07/16 0550 Objective Remarks GENERAL: This elderly averagely built white female who is pale, alert and sitting upright. HEENT: Head normocephalic. Pupils are reactive. Nasal mucosa clear Throat was clear. NECK: Supple. No bruits or thyroid enlargement. CHEST: Equal movements. Expiratory wheezes scattered throughout both lung conner with prolonged expirations with occasional crackles at both lung bases. HEART: The heart sounds are irregular, S1-S2. No murmur. No S3 gallop. ABDOMEN: Soft, protuberant. No masses or organomegaly or tenderness. Her bowel sounds are active. EXTREMITIES: Mild varicosities. No edema. Neuro: 1 + reflexes.Cranial nerves grossly intact. RECTAL: Exam is deferred. SKIN: No lesions. Assessment and Plan Assessment and Plan IMPRESSION 1. COPD with acute exacerbation. 2. Asthmatic bronchitis. 3. Cardiomyopathy and systolic heart failure. 4. Hypothyroidism. 5. Hyperlipidemia. 6. Left basilar pneumonia with effusion. 7. S/P ORIF left Hip Fracture. 8. Anemia Plan; 1. CBC,BMP 2. prednisone 20 mg daily. 3. O2 at 2 L. 4. Cont Antibiotics. 5. PT evaluation. Lexi Thakkar MD May 07, 2016 20:00
[2016-05-08] VITALS (7 sets, daily range): BP systolic 105–143; BP diastolic 56–74; PULSE 68–81; RESP 16–17; TEMP 96.7–98.6; O2SAT 95–100
[2016-05-08] MEDS: CEFEPIME INJ 1,000 MG in SODIUM CHLORIDE 0.9% INJ 100 ML IV SCH ×2 (01:51→09:28)
[2016-05-08] MEDS: DEXT 5%-NACL 0.45% 1000 ML INJ 1,000 ML IV SCH (01:55)
[2016-05-08] MEDS: RESP: ALBUTEROL 2.5 MG/3 ML NEB (PRN) INH (04:01)
[2016-05-08] MEDS: LEVOTHYROXINE SODIUM 50 MCG TAB PO SCH (05:48)
[2016-05-08 06:24] LABS: HEMATOCRIT 23.3 % (35.0-46.0); MEAN CELL VOLUME 87.3 FL (80.0-100.0); MEAN CORPUSCULAR HEMOGLOBIN 29.9 PG (27.0-34.0); MEAN CORPUSCULAR HGB CONC 34.2 % (32.0-36.0); PLATELET COUNT 130 TH/MM3 (150-450); RED BLOOD COUNT 2.67 MIL/MM3 (4.00-5.30); RED CELL DISTRIBUTION WIDTH 14.4 % (11.6-17.2); WHITE BLOOD COUNT 12.3 TH/MM3 (4.0-11.0)
[2016-05-08 06:57] LABS: ALKALINE PHOSPHATASE 47 U/L (45-117); ALT (GPT) 13 U/L (10-53); ANION GAP 7 MEQ/L (5-15); AST (GOT) 7 U/L (15-37); BICARBONATE 34.8 MEQ/L (21.0-32.0); BLOOD UREA NITROGEN 48 MG/DL (7-18); CHLORIDE 98 MEQ/L (98-107); GLOMERULAR FILTRATION RATE 37 ML/MIN (>89); POTASSIUM 3.1 MEQ/L (3.5-5.1); SODIUM (NA) 140 MEQ/L (136-145); TOTAL BILIRUBIN ADULT 0.4 MG/DL (0.2-1.0)
[2016-05-08] MEDS: RESP: ALBUTEROL 2.5 MG/IPRATROPIUM 0.5 MG NEB (SCH) NEB ×2 (07:59→12:25)
[2016-05-08] MEDS: RESP: ACETYLCYSTEINE 20% 30 ML NEB NEB SCH ×2 (07:59→12:25)
--- NOTE | 2016-05-08 08:17 | HHI.PR ---
Subjective History of Present Illness Patient s/p fall have left hip fracture S/P ORIF. D/W RN Isabell at bed side. cardiology input noted D/W daughter Odalis Nietoke at bed side in detail understand patient condition and out come. BP Better Low Potassium will replace. Review of Systems Constitutional Constitutional: Fatigue, Weakness Pulmonary Respiratory: Shortness of Breath, Wheezing Musculoskeletal MS Remarks left hip pain. Vitals/Results Intake & Output 05/07/16 05/07/16 05/08/16 15:00 23:00 07:00 Intake Total 960 ml 240 ml 240 ml Output Total 1200 ml 500 ml 900 ml Balance -240 ml -260 ml -660 ml Intake Oral 960 ml 240 ml 240 ml Output Urine Total 1200 ml 500 ml 900 ml # Bowel Movements 0 0 0 Vital Signs Vital Signs Date Time Temp Pulse Resp B/P Pulse Ox O2 Delivery O2 Flow Rate FiO2 05/08/16 08:00 99 Nasal Cannula 2.00 05/08/16 04:04 95 21 05/08/16 04:00 98.6 69 16 127/71 98 05/08/16 00:00 96.7 72 16 132/74 98 05/07/16 21:12 Nasal Cannula 2.00 05/07/16 20:56 95 Nasal Cannula 21 05/07/16 20:00 97.8 70 16 141/80 97 05/07/16 16:00 97.7 85 18 116/62 98 05/07/16 12:00 98.8 78 18 142/70 100 05/07/16 08:45 Nasal Cannula 2.00 05/07/16 08:45 185/82 05/07/16 08:28 99 Nasal Cannula 2.00 CBC/BMP: 05/08/16 0524 05/08/16 0524 Lab Results Laboratory Tests Test 05/08/16 05:24 White Blood Count 12.3 TH/MM3 Red Blood Count 2.67 MIL/MM3 Hemoglobin 8.0 GM/DL Hematocrit 23.3 % Mean Corpuscular Volume 87.3 FL Mean Corpuscular Hemoglobin 29.9 PG Mean Corpuscular Hemoglobin 34.2 % Concent Red Cell Distribution Width 14.4 % Platelet Count 130 TH/MM3 Mean Platelet Volume 8.8 FL Sodium Level 140 MEQ/L Potassium Level 3.1 MEQ/L Chloride Level 98 MEQ/L Carbon Dioxide Level 34.8 MEQ/L Anion Gap 7 MEQ/L Blood Urea Nitrogen 48 MG/DL Creatinine 1.34 MG/DL Estimat Glomerular Filtration 37 ML/MIN Rate Random Glucose 190 MG/DL Calcium Level 7.5 MG/DL Total Bilirubin 0.4 MG/DL Aspartate Amino Transf 7 U/L (AST/SGOT) Alanine Aminotransferase 13 U/L (ALT/SGPT) Alkaline Phosphatase 47 U/L Total Protein 5.4 GM/DL Albumin 2.2 GM/DL Physical Exam General General Appearance: No Acute Distress, Comfortable Eyes Eye Exam: Pupils Equal, Pupils Reactive, Sclera White, Extraocular Movement Intact Ears & Nose Ears & Nose Exam: Nasal Mucosa [place] Throat Throat Exam: Oral Mucosa [place] & Moist, Oral Pharynx Normal Neck Neck Exam: Neck Supple, Trachea Midline Pulmonary Resp Exam: Crackles, Rhonchi Resp Remarks Bilateral wheezing. Cardiology CV Exam: Regular, Normal Sinus Rhythm Gastrointestinal/Abdomen GI Exam: Soft, Non-Tender, Bowel Sounds Present Musculoskeletal MS Remarks Left hip tenderness. Integumentary Skin Exam: Clear, Warm, Dry, Intact Extremeties Extremities Exam: No Edema Neurologic Neuro Exam: Alert, Awake, Speech Clear, Moving All Extremities, No Focal Deficits Psychiatric Psych Exam: Appropriate Responses VTE Prophylaxis VTE Prophylaxis Device: SCDs VTE Prophylaxis Meds: Heparin PUD Prophylasis PUD Prophylaxis: Protonix Assessment/Plan Assessment/Plan ASSESSMENT AND PLAN This is an 89-year-old female who came to the emergency room, diagnosed with shortness of breath most probably secondary to COPD exacerbation/pneumonia. 1. The patient is on Zithromax 500 mg IV 24 hours, cefepime 1 gram IV q. 8 hours. The patient also on DuoNeb nebulization. patient on Solu-Medrol 40 mg IV q. 6 hours. Pulmonary Input noted. Further recommendations per Pulmonary. 2. History of congestive heart failure. Patient has chronic systolic heart failure, does not look like an acute decompensation. Patient's BNP was high. cardiology. input noted. The patient is on Lasix 40 mg daily. 3. History of hyperlipidemia. Continue Lipitor 10 mg p.o. p.o. daily. 4. History of coronary artery disease. Continue home medication. 5. History of hypothyroidism. Continue the home medication. 6. History of hypertension. Continue the home medication. We will monitor blood pressure. 7. History of anxiety. Continue with Xanax 0.5 mg p.o. q. 6 hours p.r.n. anxiety. 8. History of arthritis. Continue with Tramadol. 9. DVT Prophylaxis. SCD. 10 GI Prophylaxis...Protonix 40 mg PO Daily. 11. S/P Fall leading to left Femur Intertronchatric fracture Orthopedic input noted S/P ORIF. 12. Hypokalemia...will replace and monitor, Magnasium normal. 13. Acute Blood loss Anemia.. S/P 1 unit PRBC Transfusion. We are going to manage the patient on a daily basis and make recommendations on a daily basis. Check CBC with diff CMP in AM. Discussed Condition with: Patient Sarabjit Monroe MD May 08, 2016 08:16
[2016-05-08] MEDS ORDERED: predniSONE 20 MG TAB PO SCH (09:00)
--- NOTE | 2016-05-08 09:13 | PD.ORT.PN ---
Subjective Post Op Day #: 3 Subjective Remarks pain tolerable. feeling ok. Objective Vitals Vital Signs Date Time Temp Pulse Resp B/P Pulse Ox O2 Delivery O2 Flow Rate FiO2 05/08/16 08:00 99 Nasal Cannula 2.00 05/08/16 04:04 95 21 05/08/16 04:00 98.6 69 16 127/71 98 05/08/16 00:00 96.7 72 16 132/74 98 05/07/16 21:12 Nasal Cannula 2.00 05/07/16 20:56 95 Nasal Cannula 21 05/07/16 20:00 97.8 70 16 141/80 97 05/07/16 16:00 97.7 85 18 116/62 98 05/07/16 12:00 98.8 78 18 142/70 100 I/O 05/07/16 05/07/16 05/07/16 05/08/16 05/08/16 05/08/16 07:00 15:00 23:00 07:00 15:00 23:00 Intake Total 565 ml 960 ml 240 ml 240 ml Output Total 300 ml 1200 ml 500 ml 900 ml Balance 265 ml -240 ml -260 ml -660 ml Intake Oral 240 ml 960 ml 240 ml 240 ml Packed Cells 325 ml Output Urine Total 300 ml 1200 ml 500 ml 900 ml # Bowel Movements 0 0 0 0 Result Diagram: 05/08/16 0524 05/08/16 0524 Imaging Last 24 hours Impressions Chest X-Ray 05/07/16 0600 Signed Impressions: Service Date/Time: Saturday, May 07, 2016 05:41 - CONCLUSION: Worsening left lung consolidation. Noah Marcelino MD Objective Remarks in bed, nad incision no erythema, bloody drainage on dressing neg homans appears nvi Assessment & Plan Ortho Post Op Day #: 3 Problem List: Assessment and Plan s/p right troch nail 50%pwb daily dressing changes monitor H&H lovenox , scd's therapy ortho stable and cleared for d/c f/up dr. mccarty 2 weeks Baljeet Camacho May 08, 2016 09:13
[2016-05-08 09:22] LABS: POLYS (SEG NEUTROPHILS) 81 % (16-70); WBC DIFF SAMPLE 100
[2016-05-08 09:23] LABS: PLATELET ESTIMATE SMEAR LOW (NORMAL); PLATELET MORPHOLOGY NORMAL (NORMAL); SCAN/DIFF FINAL DIFF MANUAL
[2016-05-08] MEDS: DOCUSATE SODIUM 50 MG/SENNA 8.6 MG TAB PO SCH (09:28)
[2016-05-08] MEDS: CITALOPRAM HYDROBROMIDE 20 MG TAB PO SCH (09:28)
[2016-05-08] MEDS: ATORVASTATIN 10 MG TAB PO SCH (09:28)
[2016-05-08] MEDS: MULTIVITAMINS/MINERALS THERAPEUTIC TAB PO SCH (09:28)
[2016-05-08] MEDS: FUROSEMIDE 20 MG TAB PO SCH (09:28)
[2016-05-08] MEDS: ISOSORBIDE MONONITRATE 30 MG TAB PO SCH (09:28)
[2016-05-08] MEDS: HYDROCHLOROTHIAZIDE 12.5 MG CAP PO SCH (09:28)
[2016-05-08] MEDS: guaiFENesin E.R. 600 MG TAB PO SCH (09:28)
[2016-05-08] MEDS: FUROSEMIDE 20 MG/2 ML VIAL IV PUSH SCH (09:29)
[2016-05-08] MEDS: SODIUM CHLORIDE 0.9% FLUSH 5 ML FLUSH IVF SCH (09:29)
[2016-05-08] MEDS: LOSARTAN 50 MG TAB PO SCH (09:29)
[2016-05-08] MEDS ORDERED: POTASSIUM CL 40 MEQ/30 ML LIQ UDC PO ONE (14:15)
--- NOTE | 2016-05-08 15:35 | PD.CARD.PN ---
Subjective Subjective Remarks alert in nad Objective Vital Signs / I&O Vital Signs Date Time Temp Pulse Resp B/P Pulse Ox O2 Delivery O2 Flow Rate FiO2 05/08/16 12:13 110/62 05/08/16 12:08 97.5 81 16 105/56 99 05/08/16 08:00 99 Nasal Cannula 2.00 05/08/16 07:55 96.8 68 17 143/70 100 05/08/16 04:04 95 21 05/08/16 04:00 98.6 69 16 127/71 98 05/08/16 00:00 96.7 72 16 132/74 98 05/07/16 21:12 Nasal Cannula 2.00 05/07/16 20:56 95 Nasal Cannula 21 05/07/16 20:00 97.8 70 16 141/80 97 05/07/16 16:00 97.7 85 18 116/62 98 I/O 05/07/16 05/07/16 05/07/16 05/08/16 05/08/16 05/08/16 07:00 15:00 23:00 07:00 15:00 23:00 Intake Total 565 ml 960 ml 240 ml 240 ml Output Total 300 ml 1200 ml 500 ml 900 ml Balance 265 ml -240 ml -260 ml -660 ml Intake Oral 240 ml 960 ml 240 ml 240 ml Packed Cells 325 ml Output Urine Total 300 ml 1200 ml 500 ml 900 ml # Bowel Movements 0 0 0 0 Physical Exam GENERAL: SKIN: Warm and dry. HEAD: Normocephalic. EYES: No scleral icterus. No injection or drainage. NECK: Supple, trachea midline. No JVD or lymphadenopathy. CARDIOVASCULAR: Regular rate and rhythm without murmurs, gallops, or rubs. RESPIRATORY: Breath sounds equal bilaterally. No accessory muscle use. GASTROINTESTINAL: Abdomen soft, non-tender, nondistended. MUSCULOSKELETAL: No cyanosis, or edema. BACK: Nontender without obvious deformity. No CVA tenderness. Laboratory Laboratory Tests Test 05/08/16 05:24 White Blood Count 12.3 TH/MM3 Red Blood Count 2.67 MIL/MM3 Hemoglobin 8.0 GM/DL Hematocrit 23.3 % Mean Corpuscular Volume 87.3 FL Mean Corpuscular Hemoglobin 29.9 PG Mean Corpuscular Hemoglobin 34.2 % Concent Red Cell Distribution Width 14.4 % Platelet Count 130 TH/MM3 Mean Platelet Volume 8.8 FL Differential Total Cells 100 Counted Neutrophils % (Manual) 81 % Lymphocytes % 17 % Monocytes % 2 % Neutrophils # (Manual) 10.0 TH/MM3 Differential Comment FINAL DIFF MANUAL Platelet Estimate LOW Platelet Morphology Comment NORMAL Sodium Level 140 MEQ/L Potassium Level 3.1 MEQ/L Chloride Level 98 MEQ/L Carbon Dioxide Level 34.8 MEQ/L Anion Gap 7 MEQ/L Blood Urea Nitrogen 48 MG/DL Creatinine 1.34 MG/DL Estimat Glomerular Filtration 37 ML/MIN Rate Random Glucose 190 MG/DL Calcium Level 7.5 MG/DL Total Bilirubin 0.4 MG/DL Aspartate Amino Transf 7 U/L (AST/SGOT) Alanine Aminotransferase 13 U/L (ALT/SGPT) Alkaline Phosphatase 47 U/L Total Protein 5.4 GM/DL Albumin 2.2 GM/DL Assessment and Plan Problem List: (1) SOB (shortness of breath) (2) Pleural effusion (3) Hypothyroid (4) NSTEMI (non-ST elevated myocardial infarction) (5) HTN (hypertension) (6) COPD (chronic obstructive pulmonary disease) (7) Congestive heart failure (8) Elevated troponin (9) PNA (pneumonia) (10) CAD (coronary artery disease) (11) Cardiomyopathy Assessment and Plan 1.) CAD/cardiomyopathy - continue aspirin, lipitor, lasix, hctz, losartan, beta blockers held d/t rad; rx of copd/pneumonia per Dr Pizarro; pod #3, hd'ly stable and anemic; i d/w daughter at length hemodynamic instability d/t perioperative state, anemia, arrythmia and uncertain pulmonary status and i rec letting bp run slightly high short term to avoid hypotensive events 2.) ?PAF - in nsr with pacs on tele, ac held d/t recent surgery, replete electrolytes prn, d/w patient and daughter, rec coumadin or xarelto or pradaxa or eliquis d/t chads score = 2 and increased risk of cva, patient and daughter understand risks and refuse, will continue aspirin 81 mg qd. Problem Qualifiers (1) PNA (pneumonia): Qualified Code: J18.9 - Pneumonia of left lung due to infectious organism, unspecified part of lung Camacho Balbuena MD May 08, 2016 15:35
--- NOTE | 2016-05-15 20:37 | MD ---
cc: SARABJIT BRYAN MD ADMISSION DATE: 05/01/2016 DISCHARGE DATE: 05/08/2016 Okay to discharge the patient to rehab if okay with all conditions. CONDITION AT THE TIME OF DISCHARGE Satisfactory. ACTIVITY As tolerated. DIET Cardiac diet. ALLERGIES NO KNOWN DRUG ALLERGIES. DISCHARGE MEDICATIONS 1. Prednisone 20 mg p.o. daily. 2. Mucomyst nebulization q.6 hours. 3. Lovenox 30 mg p.o. daily. 4. Multivitamin p.o. daily. 5. Lortab 7.5/325 q.4 hours p.r.n. pain. 6. Lasix 20 mg IV daily. 7. Isosorbide mononitrate 30 mg p.o. daily. 8. Losartan 100 mg p.o. daily. 9. Hydrochlorothiazide 12.5 mg p.o. daily. 10. Albuterol nebulization q.4 hours. 11. Levothyroxine 50 mcg p.o. daily. 12. Aspirin 325 mg p.o. daily. 13. Lipitor 10 mg daily. 14. Citalopram 20 mg p.o. daily. 15. Xanax 0.5 mg p.o. q.6 hours p.r.n. anxiety. 16. Coreg 3.125 mg p.o. daily p.r.n. ADMITTING DIAGNOSES 1. Shortness of breath secondary to the COPD exacerbation, pneumonia and CHF exacerbation. 2. Acute on chronic systolic heart failure. The patient was given Zithromax and cefepime IV. The patient also got DuoNeb nebulization. The patient also got Lasix IV. The patient also got Solu-Medrol IV. The patient seen by Pulmonary and Cardiology to manage the patient. 3. History of congestive heart failure, acute on chronic systolic heart failure, BNP was high. 4. History of hyperlipidemia. 5. History of coronary artery disease. 6. History of hypothyroidism. 7. History of hypertension. 8. History of anxiety. 9. History of arthritis. 10. Status post fall in the hospital leading to a left femur fracture which is intertrochanteric fracture. Orthopedic saw the patient. The patient is status post open reduction, internal fixation. 11. The patient also had hypokalemia. 12. Acute blood loss anemia secondary to surgery. The patient is status post one unit of packed RBC transfusion. HOSPITAL COURSE This is an 89-year-old female admitted with shortness of breath diagnosed with COPD exacerbation, pneumonia and CHF exacerbation. The patient was given empiric antibiotic and DuoNeb nebulization. The patient also given Solu-Medrol. The patient seen by Pulmonary and Cardiology. The patient also has acute systolic congestive heart failure. The patient had a fall and got a left hip fracture and got open reduction, internal fixation by orthopedic. The patient also had leukocytosis during the hospital stay. The patient also had hypokalemia during the hospital stay which was replaced. The patient was discharged to rehab. I had a long discussion with her daughter, Odalis Duggan, regarding the patient's condition and the critical situation of the patient. The patient's family verbalized understanding and know her prognosis is not good. The patient had a Legionella antigen done which was negative. Urine culture grew 10-50,000 CFU/ML mixed gram-positive. Influenza A and B negative. Blood cultures for five days are negative. Chest x-ray done shows pneumonia and small left pleural effusion, lung consolidation. Hip x-ray done shows a left intertrochanteric hip fracture. Further details in the medical record. Sarabjit Bryan MD EA/CHRISTY /1:11 PM /8:08 PM
[2016-05-17] MEDS ORDERED: WHEEMIS3 (14:42)
[2016-05-25] MEDS ORDERED: CELE20TA PO (08:05)
[2016-05-25] MEDS ORDERED: ISOS30TA3 PO (08:05)
[2016-05-25] MEDS ORDERED: FURO20TA PO (08:05)
[2016-05-25] MEDS ORDERED: LIPI10TA PO (08:05)
[2016-05-25] MEDS ORDERED: LEVO.05 PO (08:05)
[2016-05-25] MEDS ORDERED: COZA50TA PO (08:05)
[2016-05-25] MEDS ORDERED: PRED10 PO (08:05)
--- NOTE | 2016-05-28 08:52 | RSPPFT ---
DATE OF PROCEDURE: 05/21/15 COMMENTS: Spirometry demonstrates an FEV1 of 0.5 at 41% of predicted, FVC of 1.3 is 67%, FEV1/FVC ratio at 43%. The FEF 25-75 is 18% of predicted. Post-bronchodilator study demonstrated significant improvements suggesting a response. Flow volume loops suggest severe obstruction. IMPRESSION: 1. Severe obstructive disease. 2. Significant response to use of bronchodilator indicating reversibility.
[2016-05-28] MEDS ORDERED: APIX2.5T PO (12:19)
[2016-05-28] MEDS ORDERED: POTA-243 PO (12:19)
[2016-05-29] MEDS ORDERED: SYMB80AE INH (09:45)
[2016-05-29] MEDS ORDERED: IPRASOL NEB (09:45)
== END 2016-05-08 14:45 | DRG 853 ==
LOC: PHED 09:18 → PHEDA 10:53 → PH3A 15:25 → N06A 05-05 10:28
PROVIDERS: ADMIT Family Medicine; ATTEND Family Medicine
PROC: 0QS706Z Reposition Left Upper Femur with Intramedullary Internal Fixation Device, Open Approach (ICD-10-PCS; principal; 2016-05-05 16:09)
PROC: 30233N1 Transfusion of Nonautologous Red Blood Cells into Peripheral Vein, Percutaneous Approach (ICD-10-PCS; 2016-05-06)
DX: A41.9 Sepsis, unspecified organism (principal); J18.9 Pneumonia, unspecified organism; I21.4 Non-ST elevation (NSTEMI) myocardial infarction; J44.0 Chronic obstructive pulmonary disease with (acute) lower respiratory infection; I42.9 Cardiomyopathy, unspecified; I50.22 Chronic systolic (congestive) heart failure; D62 Acute posthemorrhagic anemia; I48.0 Paroxysmal atrial fibrillation; J44.1 Chronic obstructive pulmonary disease with (acute) exacerbation; S72.142A Displaced intertrochanteric fracture of left femur, initial encounter for closed fracture; I10 Essential (primary) hypertension; E03.9 Hypothyroidism, unspecified; E78.5 Hyperlipidemia, unspecified; I25.10 Atherosclerotic heart disease of native coronary artery without angina pectoris; M19.90 Unspecified osteoarthritis, unspecified site; J45.909 Unspecified asthma, uncomplicated; R15.9 Full incontinence of feces; R32 Unspecified urinary incontinence; F32.9 Major depressive disorder, single episode, unspecified; F41.9 Anxiety disorder, unspecified; E87.6 Hypokalemia; W19.XXXA Unspecified fall, initial encounter; Y95 Nosocomial condition; Z80.1 Family history of malignant neoplasm of trachea, bronchus and lung; Y92.230 Patient room in hospital as the place of occurrence of the external cause; Z66 Do not resuscitate
CPT/HCPCS: 36430; 71010; 71020; 71250; 73502; 73521; 76000; 80048; 80053; 81001; 82550; 83605; 83690; 83735; 83880; 84100; 84132; 84484; 85007; 85025; 85027; 85610; 85730; 86850; 86900; 86901; 86920; 87040; 87086; 87449; 87804; 93005; 94060; 94640; 94664; 96360; 96365; 96374; 96375; C1713; J0456; J0690; J0692; J1580; J1644; J1650; J1940; J2250; J2405; J2930; J3370; J3480; J7030; J7040; J7050; J7512; J7608; J7613; P9016

== ENCOUNTER 2016-06-05 13:50 | Emergency (ER) | payer MEDICARE ==
[~2016-06-05] VITALS: Ht 152.4 cm; Wt 55.0 kg
[~2016-06-05 13:50] MED LIST changes: +APIX2.5T PO; +COZA50TA PO; +ENOX30P SQ; +FURO20TA PO; +HYDR-3288 PO; +IPRASOL NEB; -ISOS10TA3 PO; +LEVO.05 PO; -LEVO100T5 PO; +POTA-243 PO; +SYMB80AE INH; +WHEEMIS3; +[UNRECOGNIZED DRUG - OTHER]
[2016-06-05 14:01] VITALS: BP 84/46; PULSE 85; RESP 16; TEMP 100.3; O2SAT 95
[2016-06-05] MEDS ORDERED: SODIUM CHLOR 0.9% 1000 ML INJ 800 ML IV ONE (14:27)
[2016-06-05] MEDS ORDERED: SODIUM CHLOR 0.9% 1000 ML INJ 1,000 ML IV ONE (14:27)
[2016-06-05] MEDS ORDERED: ACETAMINOPHEN 325 MG TAB PO ONE (14:30)
[2016-06-05 14:45] VITALS: BP 89/54; PULSE 78; RESP 18; O2SAT 94
--- NOTE | 2016-06-05 14:52 | RADHPO ---
EXAM DATE/TIME: 06/05/2016 14:36 [facility] COMPARISON: CHEST PA & LAT, May 13, 2016, 15:37. CHEST PA & LAT, May 29, 2016, 10:37. CHEST SINGLE AP, May 25, 2016, 12:55. INDICATIONS: Short of breath MEDICAL HISTORY: Chronic obstructive pulmonary disease. Hypertension SURGICAL HISTORY: None. ENCOUNTER: Initial ACUITY: 1 day PAIN SCORE: 3/10 LOCATION: Bilateral chest FINDINGS: There is elevation of the left hemidiaphragm. The heart is enlarged. Chronic parenchymal densities involving the left upper lung field is unchanged. The right lung is clear. CONCLUSION: 1. Elevation of the left hemidiaphragm. 2. Stable chronic parenchymal densities involving the left upper lung field. 3. Cardiomegaly. 4. No acute focal pulmonary infiltrate or pulmonary vascular congestion. Aris Watkins MD on June 05, 2016 at 14:47 Board Certified Radiologist. This report was verified electronically.
[2016-06-05 14:57] LABS: AUTOMATED NEUTROPHIL # 8.7 TH/MM3 (1.8-7.7); BASOPHIL # 0.2 TH/MM3 (0-0.2); BASOPHIL % 1.8 % (0.0-2.0); EOSINOPHIL # 0.1 TH/MM3 (0-0.4); EOSINOPHIL % 0.5 % (0.0-4.0); HEMATOCRIT 28.2 % (35.0-46.0); LYMPH % 22.7 % (9.0-44.0); MEAN CELL VOLUME 91.8 FL (80.0-100.0); MEAN CORPUSCULAR HEMOGLOBIN 29.7 PG (27.0-34.0); MEAN CORPUSCULAR HGB CONC 32.3 % (32.0-36.0); MONO % 8.2 % (0.0-8.0); NEUT % 66.8 % (16.0-70.0); PLATELET COUNT 211 TH/MM3 (150-450); RED BLOOD COUNT 3.07 MIL/MM3 (4.00-5.30); RED CELL DISTRIBUTION WIDTH 17.5 % (11.6-17.2); WHITE BLOOD COUNT 13.1 TH/MM3 (4.0-11.0)
[2016-06-05 14:58] LABS: HEMO FLAGS DIFF FINAL
--- NOTE | 2016-06-05 15:02 | PD ---
HPI . Low blood pressure Chief Complaint: Abnormal Results Time Seen by Provider: 14:26 Travel History International Travel<30 days: No Contact w/Intl Traveler<30days: No Traveled to known affect area: No History of Present Illness HPI The patient is brought in by her daughter for the evaluation of low blood pressure. The daughter states that several different people have gotten very low readings at home prior to presentation. The majority of the history is obtained from the daughter. The patient seems to be capable of giving the history but defers to the daughter. The patient had a recent hospitalization for pneumonia and congestive heart failure. During that hospitalization she inadvertently fell and suffered a hip fracture. The hip fracture was repaired surgically. The postoperative period was complicated by low blood pressure and by a DVT. Anticoagulation was not felt to be appropriate for the patient as she developed a large hematoma at the operative site. An IVC filter was then placed. The patient's daughter states that the patient's blood pressure was monitored closely while in the hospital and that her medications were adjusted accordingly. She has been out of the hospital for less than a week. They have been monitoring her blood pressure closely. Today, the physical therapist, the home health nurse and the patient' s daughter all got low blood pressure readings. The patient was subsequently brought here for evaluation. The daughter states that the patient has chronic lung problems. Her breathing is no different today than usual. PFSH Past Medical History Hx Anticoagulant Therapy: Yes (asa 81mg) Arthritis: No Asthma: No Autoimmune Disease: No Anxiety: No Depression: Yes Heart Rhythm Problems: No Cancer: No Cardiovascular Problems: Yes High Cholesterol: No Chemotherapy: No Chest Pain: No Congestive Heart Failure: Yes COPD: Yes Cerebrovascular Accident: No Dementia: Yes Diabetes: No Diminished Hearing: No Endocrine: Yes Gastrointestinal Disorders: No GERD: No Glaucoma: No Genitourinary: No Hepatitis: No Hiatal Hernia: No Hypertension: Yes Immune Disorder: No Implanted Vascular Access Dvce: No Kidney Stones: No Musculoskeletal: Yes Neurologic: No Psychiatric: Yes Reproductive: No Respiratory: Yes (COPD, CHF) Immunizations Current: Yes Migraines: No Pneumonia: Yes Radiation Therapy: No Renal Failure: No Seizures: No Sickle Cell Disease: No Sleep Apnea: No Thyroid Disease: Yes (Hypo-) Ulcer: No Menopausal: Yes Past Surgical History Abdominal Surgery: No AICD: No Arteriovenous Shunt: No Cardiac Surgery: No Ear Surgery: No Endocrine Surgery: No Eye Surgery: Yes Genitourinary Surgery: No Gynecologic Surgery: No Insulin Pump: No Joint Replacement: No Neurologic Surgery: No Oral Surgery: No Pacemaker: No Thoracic Surgery: Yes (thoracentesis) Other Surgery: Yes Social History Alcohol Use: No (Rarely) Tobacco Use: No Substance Use: No Allergies-Medications (Allergen,Severity, Reaction): Coded Allergies: No Known Allergies (Verified , 05/01/16) Reported Meds & Prescriptions Reported Meds & Active Scripts Active Symbicort Inh (Budesonide/Formoterol Fumarate) 80-4.5 Mcg/Act Aero 1 Puff INH Q12HR 30 Days Duoneb (Ipratropium-Albuterol Neb) 0.5-2.5 Mg/3 Ml Neb 1 Ampule NEB QID NEB 30 Days Eliquis (Apixaban) 2.5 Mg Tab 2.5 Mg PO BID Klor-Con 10 (Potassium Chloride) 10 Meq Tab 10 Meq PO DAILY Cozaar (Losartan Potassium) 50 Mg Tab 100 Mg PO DAILY Synthroid (Levothyroxine Sodium) 50 Mcg Tab 50 Mcg PO DAILY@06 Isosorbide Mononitrate ER (Isosorbide Mononitrate) 30 Mg Jacky 30 Mg PO BID Furosemide 20 Mg Tab 20 Mg PO DAILY Celexa (Citalopram Hydrobromide) 20 Mg Tab 20 Mg PO DAILY Lipitor (Atorvastatin Calcium) 10 Mg Tab 10 Mg PO HS Wheelchair (Device) 1 Mis Mis 1 Ea .ROUTE DIRECTED Lovenox Inj (Enoxaparin Sodium) 30 Mg/0.3 Ml Syr 30 Mg SQ DAILY [place] (Hydrocodone-Acetaminophen) 7.5-325 mg Tab 1 Tab PO Q6H PRN Lasix (Furosemide) 20 Mg Tab 20 Mg PO EVERY OTHER DAY Aspirin 325 Mg Tab 325 Mg TUBE DAILY Reported [telmi] Albuterol Neb (Albuterol Sulfate) 2.5 Mg/0.5 Ml Neb 2.5 Mg NEB Q4HR NEB PRN Note: The Albuterol Sulfate Inhalation Solution is concentrated and must be diluted. Read complete instructions carefully before using. Carvedilol 3.125 Mg Tab 3.125 Mg PO DAILY PRN Lipitor (Atorvastatin Calcium) 10 Mg Tab 10 Mg PO DAILY Cheratussin AC Liq (Guaifenesin-Codeine Liq) 100-10 Mg/5 Ml Syrp 5 Ml PO Q4H PRN Do not exceed 6 doses/24 hrs. Tramadol (Tramadol HCl) 50 Mg Tab 50 Mg PO Q4H PRN Xanax (Alprazolam) 0.5 Mg Tab 0.5 Mg PO Q6H PRN Ventolin Hfa 18 GM Inh (Albuterol Sulfate) 90 Mcg/Act Aer 2 Puff INH Q4-6H PRN Prednisone 10 Mg Tab 10 Mg PO DAILY Micardis (Telmisartan) 20 Mg Tab 80 Mg PO DAILY Review of Systems Except as stated in HPI: all other systems reviewed are Neg General / Constitutional: No: Fever, Chills Respiratory: Positive: Cough, Shortness of Breath, Wheezing Physical Exam Narrative GENERAL: Patient seems to be a spry, elderly woman in no acute distress. She seems to be listening attentively to the exchange between myself and the daughter. SKIN: Warm and dry. HEAD: Atraumatic. Normocephalic. EYES: Pupils equal and round. ENT: No nasal bleeding or discharge. Mucous membranes pink and moist. NECK: Trachea midline. Neck is supple. CARDIOVASCULAR: Regular rate and rhythm. RESPIRATORY: No accessory muscle use. She has some coarse expiratory wheezing that clears with coughing. She has good air movement throughout. GASTROINTESTINAL: Abdomen soft, non-tender, nondistended. MUSCULOSKELETAL: No obvious deformities. No edema. NEUROLOGICAL: Awake and alert. No obvious cranial nerve deficits. Motor grossly within normal limits. Normal speech. PSYCHIATRIC: Appropriate mood and affect; insight and judgment normal. Data Data Last Documented VS Vital Signs Date Time Temp Pulse Resp B/P Pulse Ox O2 Delivery O2 Flow Rate FiO2 06/05/16 15:33 76 18 95 Room Air 06/05/16 14:45 89/54 06/05/16 14:01 100.3 Orders Electrocardiogram (06/05/16 14:27) Complete Blood Count With Diff (06/05/16 14:27) Comprehensive Metabolic Panel (06/05/16 14:27) Lactic Acid Sepsis Protocol (06/05/16 14:27) Urinalysis - C+S If Indicated (06/05/16 14:27) Blood Culture (06/05/16 14:27) Chest, Single Ap (06/05/16 14:27) Blood Glucose (06/05/16 14:27) Ecg Monitoring (06/05/16 14:27) Iv Access Insert/Monitor (06/05/16 14:27) Cath For Specimen (06/05/16 14:27) Oximetry (06/05/16 14:27) Oxygen Administration (06/05/16 14:27) Acetaminophen (Tylenol) (06/05/16 14:30) Sodium Chlor 0.9% 1000 Ml Inj (Ns 1000 M (06/05/16 14:27) Sodium Chlor 0.9% 1000 Ml Inj (Ns 1000 M (06/05/16 14:27) Labs Laboratory Tests Test 06/05/16 06/05/16 06/05/16 14:45 14:50 15:20 White Blood Count 13.1 TH/MM3 Red Blood Count 3.07 MIL/MM3 Hemoglobin 9.1 GM/DL Hematocrit 28.2 % Mean Corpuscular Volume 91.8 FL Mean Corpuscular Hemoglobin 29.7 PG Mean Corpuscular Hemoglobin 32.3 % Concent Red Cell Distribution Width 17.5 % Platelet Count 211 TH/MM3 Mean Platelet Volume 8.1 FL Neutrophils (%) (Auto) 66.8 % Lymphocytes (%) (Auto) 22.7 % Monocytes (%) (Auto) 8.2 % Eosinophils (%) (Auto) 0.5 % Basophils (%) (Auto) 1.8 % Neutrophils # (Auto) 8.7 TH/MM3 Lymphocytes # (Auto) 3.0 TH/MM3 Monocytes # (Auto) 1.1 TH/MM3 Eosinophils # (Auto) 0.1 TH/MM3 Basophils # (Auto) 0.2 TH/MM3 CBC Comment DIFF FINAL Differential Comment Sodium Level 141 MEQ/L Potassium Level 4.5 MEQ/L Chloride Level 104 MEQ/L Carbon Dioxide Level 30.7 MEQ/L Anion Gap 6 MEQ/L Blood Urea Nitrogen 24 MG/DL Creatinine 1.30 MG/DL Estimat Glomerular Filtration 39 ML/MIN Rate Random Glucose 95 MG/DL Calcium Level 7.5 MG/DL Total Bilirubin 0.9 MG/DL Aspartate Amino Transf 19 U/L (AST/SGOT) Alanine Aminotransferase 12 U/L (ALT/SGPT) Alkaline Phosphatase 105 U/L Total Protein 6.8 GM/DL Albumin 2.7 GM/DL Lactic Acid Level 1.5 mmol/L Urine Collection Type CATH Urine Color YELLOW Urine Turbidity CLEAR Urine pH 6.0 Urine Specific [place] 1.011 Urine Protein NEG mg/dL Urine Glucose (UA) NEG mg/dL Urine Ketones NEG mg/dL Urine Occult Blood NEG Urine Nitrite NEG Urine Bilirubin NEG Urine Leukocyte Esterase NEG Urine WBC 0-2 /hpf Urine Squamous Epithelial 0-5 /hpf Cells Urine Hyaline Casts 25-49 /lpf Microscopic Urinalysis Comment CATH-CULT NOT IND Urine Collection Time 15:20 [facility] Medical Decision Making Medical Screen Exam Complete: Yes Emergency Medical Condition: Yes Medical Record Reviewed: Yes Interpretation(s) EKG shows a normal sinus rhythm with a rate of 78. She has some nonspecific ST segment depression but does not appear to be changed from previous. Differential Diagnosis Differential diagnosis includes but is not limited to anemia, dehydration, medication intolerance, sepsis Narrative Course Patient presents for evaluation and treatment of low blood pressure. Her initial blood pressures here were in the 80/40 range. However, a subsequent blood pressure prior to any treatment with fluids was about 125/75. CXR: CONCLUSION: 1. Elevation of the left hemidiaphragm. 2. Stable chronic parenchymal scarring involving the left upper lung field. 3. Cardiomegaly. 4. No acute focal pulmonary infiltrate or pulmonary vascular congestion. The chest x-ray was independently viewed by me. 06/05/16 14:45 UA is negative for infection. Her systolic blood pressure has remained above 100 while here. I will discharge her to home with instructions to discontinue her blood pressure medications. Check her blood pressure daily. Report her blood pressure findings to her primary care physician. 06/05/16 14:45 Diagnosis Primary Impression: Hypotension Qualified Code: I95.2 - Hypotension due to drugs Additional Instructions: Check her blood pressure at least once a day. Report her blood pressure findings to her primary care physician. Disposition: 01 DISCHARGE HOME Condition: Stable Louise Hadley MD Jun 05, 2016 15:02
[2016-06-05 15:18] LABS: CHLORIDE 104 MEQ/L (98-107); POTASSIUM 4.5 MEQ/L (3.5-5.1); SODIUM (NA) 141 MEQ/L (136-145)
[2016-06-05 15:22] LABS: ANION GAP 6 MEQ/L (5-15); BICARBONATE 30.7 MEQ/L (21.0-32.0); BLOOD UREA NITROGEN 24 MG/DL (7-18)
[2016-06-05 15:22] LABS: BLOOD, URINE NEG (NEG); GLUCOSE,URINE NEG (NEG); KETONE, URINE NEG (NEG); NITRITE,URINE NEG (NEG)
[2016-06-05 15:25] LABS: ALT (GPT) 12 U/L (10-53); AST (GOT) 19 U/L (15-37); GLOMERULAR FILTRATION RATE 39 ML/MIN (>89)
[2016-06-05 15:25] LABS: URINE COLOR YELLOW (YELLW/STRAW)
[2016-06-05 15:26] LABS: TOTAL BILIRUBIN ADULT 0.9 MG/DL (0.2-1.0)
[2016-06-05 15:26] LABS: METHOD OF COLLECTION CATH
[2016-06-05 15:28] LABS: ALKALINE PHOSPHATASE 105 U/L (45-117)
[2016-06-05 15:29] LABS: COMMENT (UR) CATH-CULT NOT IND; CULTURE IF INDICATED CATH CULTURE NOT IND; SQUAMOUS EPITHELIAL CELL URINE 0-5 /hpf (0-5); WBC, URINE 0-2 /hpf (0-5)
[2016-06-05 15:31] VITALS: O2SAT 95
[2016-06-05] MEDS ORDERED: MUCI30TA2 PO (16:21)
[2016-06-05] MEDS ORDERED: ASPI-110 PO (16:21)
[2016-06-05 16:44] VITALS: BP 103/55
--- NOTE | 2016-06-06 05:06 | EKG ---
Date Performed: 06/05/2016 Time Performed: 14:50:22 PTAGE: 89 years EKG: BASELINE ARTIFACT PRESENT. Sinus rhythm with PAC(s) Possible left ventricular hypertrophy Lateral ST-T changes may be due to hypertrophy and /or ischemia Abnormal ECG Within the constraints of artifact, the ST-T wave changes appear slightly b pawan in the lateral precordial leads. PREVIOUS TRACING : 05/01/2016 09.29 DOCTOR: Omega Soni Interpretating Date/Time 06/06/2016 05:05:51
--- NOTE | 2016-06-10 10:29 | RSPPFT ---
DATE OF PROCEDURE: 04/29/16 COMMENTS: Spirometry with FEV1 of 0.5 at 41% of predicted, FVC of 1.3 at 67%, FEV1/FVC ratio is 43%. The FEF 25-75 is 18% of predicted. Post-bronchodilator study demonstrated significant improvements in all the spirometric values. Flow volume loops suggest an obstructive defect. IMPRESSION: 1. Severe obstructive disease. 2. Significant response to use of bronchodilator indicating some reversibility.
== END 2016-06-05 16:53 | disposition home or self-care (01) ==
LOC: PHED 13:50
DX: I95.9 Hypotension, unspecified (principal); I50.9 Heart failure, unspecified; I51.7 Cardiomegaly; J44.9 Chronic obstructive pulmonary disease, unspecified; F03.90 Unspecified dementia, unspecified severity, without behavioral disturbance, psychotic disturbance, mood disturbance, and anxiety; I10 Essential (primary) hypertension; E03.8 Other specified hypothyroidism; Z79.82 Long term (current) use of aspirin; Z98.890 Other specified postprocedural states
CPT/HCPCS: 71010; 80053; 81001; 83605; 85025; 87040; 93005; 99285; J7030; P9612

== ENCOUNTER 2016-07-11 18:18 | Inpatient (IN) | payer MEDICARE ==
[~2016-07-11] VITALS: Ht 152.4 cm; Wt 53.3 kg
[~2016-07-11 18:18] MED LIST changes: -APIX2.5T PO; +ASPI-110 PO; -ASPI325T TUBE; -CHERSYP2 PO; -COZA50TA PO; -ENOX30P SQ; -FURO20TA PO; -HYDR-3288 PO; +MUCI30TA2 PO; -PRED10 PO; -TRAM50TA PO; -VENTAER INH; -WHEEMIS3; -[UNRECOGNIZED DRUG - OTHER]
[2016-07-11 18:21] VITALS: BP 78/58; PULSE 85; RESP 16; TEMP 98.9; O2SAT 92
--- NOTE | 2016-07-11 18:54 | PD ---
HPI Chief Complaint: Fall Time Seen by Provider: 18:33 Travel History International Travel<30 days: No Contact w/Intl Traveler<30days: No Traveled to known affect area: No History of Present Illness HPI 89-year-old female with history of COPD, CHF, CAD, cardiomyopathy, hypertension , brought in from home by her daughter for evaluation of left hip and low back pain after a fall that occurred 2 nights ago. The patient does not recall how she fell. Apparently she was going to the restroom in the middle of the night and was able to use the restroom and make it back to her bed. Fall was unwitnessed. She has been ambulating with her walker. History of left hip fracture earlier this year that was repaired surgically. According to the daughter she has not been acting like herself throughout the day today. She noticed that her blood pressure was a lot lower than it usually is. No fevers or recent illness. Daughter is also concerned because she thinks that the patient's feet feel cold. Chart review shows that the patient had an echocardiogram on 09/14/15 which showed grade 1 diastolic dysfunction with an EF of 45-50%. PFSH Past Medical History Hx Anticoagulant Therapy: Yes (162MG ASA) Arthritis: No Asthma: No Autoimmune Disease: No Anxiety: No Depression: Yes Heart Rhythm Problems: No Cancer: No Cardiovascular Problems: Yes (IVC FILTER; HTN; ) High Cholesterol: No Chemotherapy: No Chest Pain: No Congestive Heart Failure: Yes COPD: Yes Cerebrovascular Accident: No Dementia: Yes Diabetes: No Diminished Hearing: No Endocrine: Yes Gastrointestinal Disorders: No GERD: No Glaucoma: No Genitourinary: No Hepatitis: No Hiatal Hernia: No Hypertension: Yes Immune Disorder: No Implanted Vascular Access Dvce: No Kidney Stones: No Medical other: Yes (SINUSITIS) Musculoskeletal: Yes Neurologic: No Psychiatric: Yes Reproductive: No Respiratory: Yes (COPD) Immunizations Current: Yes Migraines: No Pneumonia: Yes Radiation Therapy: No Renal Failure: No Seizures: No Sickle Cell Disease: No Sleep Apnea: No Thyroid Disease: Yes (Hypo-) Ulcer: No Menopausal: Yes Past Surgical History Abdominal Surgery: No AICD: No Arteriovenous Shunt: No Cardiac Surgery: No Ear Surgery: No Endocrine Surgery: No Eye Surgery: Yes Genitourinary Surgery: No Gynecologic Surgery: No Insulin Pump: No Joint Replacement: No Neurologic Surgery: No Oral Surgery: No Pacemaker: No Thoracic Surgery: Yes (thoracentesis) Other Surgery: Yes Social History Alcohol Use: No (Rarely) Tobacco Use: No Substance Use: No Allergies-Medications (Allergen,Severity, Reaction): Coded Allergies: No Known Allergies (Verified , 07/11/16) Reported Meds & Prescriptions Reported Meds & Active Scripts Active Klor-Con 10 (Potassium Chloride) 10 Meq Tab 10 Meq PO DAILY Synthroid (Levothyroxine Sodium) 50 Mcg Tab 50 Mcg PO DAILY@06 Celexa (Citalopram Hydrobromide) 20 Mg Tab 20 Mg PO DAILY Lasix (Furosemide) 20 Mg Tab 20 Mg PO EVERY OTHER DAY Reported Aspirin 81 (Aspirin) 81 Mg Tabdr 162 Mg PO DAILY Albuterol Neb (Albuterol Sulfate) 2.5 Mg/0.5 Ml Neb 2.5 Mg NEB Q4HR NEB PRN Note: The Albuterol Sulfate Inhalation Solution is concentrated and must be diluted. Read complete instructions carefully before using. Lipitor (Atorvastatin Calcium) 10 Mg Tab 10 Mg PO DAILY Xanax (Alprazolam) 0.5 Mg Tab 0.5 Mg PO Q6H PRN Micardis (Telmisartan) 20 Mg Tab 80 Mg PO DAILY Review of Systems Except as stated in HPI: all other systems reviewed are Neg Physical Exam Narrative GENERAL: Well-developed, well-nourished, elderly-appearing female, awake, alert , no acute distress. SKIN: Warm and dry. Mild ecchymosis over her left lateral hip. No lacerations or abrasions. HEAD: Atraumatic. Normocephalic. EYES: Pupils equal and round. No scleral icterus. No injection or drainage. ENT: Mucous membranes pink and moist. NECK: Trachea midline. No JVD. No midline cervical spine step-off or tenderness. CARDIOVASCULAR: Regular rate and rhythm. Bilateral dorsalis pedis pulses are 1 + and equal. RESPIRATORY: No accessory muscle use. Clear to auscultation. Breath sounds equal bilaterally. GASTROINTESTINAL: Abdomen soft, non-tender, nondistended. MUSCULOSKELETAL: No obvious deformities. No clubbing. No cyanosis. No edema. No midline vertebral step-off or tenderness. Pelvis is stable. No hip tenderness bilaterally. Normal range of motion in all joints and extremities. Bilateral feet are cool, normal capillary refill. NEUROLOGICAL: Awake and alert. No obvious cranial nerve deficits. Motor grossly within normal limits. Normal speech. PSYCHIATRIC: Appropriate mood and affect; insight and judgment normal. Data Data Last Documented VS Vital Signs Date Time Temp Pulse Resp B/P Pulse Ox O2 Delivery O2 Flow Rate FiO2 07/11/16 19:34 71 20 97 07/11/16 19:10 98.4 137/75 Nasal Cannula 2 Orders Electrocardiogram (07/11/16 18:41) Complete Blood Count With Diff (07/11/16 18:41) Comprehensive Metabolic Panel (07/11/16 18:41) Prothrombin Time / Inr (Pt) (07/11/16 18:41) Act Partial Throm Time (Ptt) (07/11/16 18:41) Lactic Acid Sepsis Protocol (07/11/16 18:41) Urinalysis - C+S If Indicated (07/11/16 18:41) Blood Culture (07/11/16 18:41) Chest, Single Ap (07/11/16 18:41) Ecg Monitoring (07/11/16 18:41) Iv Access Insert/Monitor (07/11/16 18:41) Oximetry (07/11/16 18:41) B-Type Natriuretic Peptide (07/11/16 18:41) Ct Brain W/O Iv Contrast(Rout) (07/11/16 ) Cath For Specimen (07/11/16 18:41) Ct Abd/Pel W Iv Contrast(Rout) (07/11/16 ) Ct Lumb Spine W/O Contrast (07/11/16 ) Sodium Chlor 0.9% 1000 Ml Inj (Ns 1000 M (07/11/16 19:56) Ckmb (Isoenzyme) Profile (07/11/16 19:57) Troponin I (07/11/16 19:57) Urine Culture (07/11/16 19:25) Ceftriaxone Inj (Rocephin Inj) (07/11/16 20:15) Iodixanol 320 Inj (Rad Ct) (Visipaque 32 (07/11/16 20:51) TLSO (07/11/16 ) Labs Laboratory Tests Test 07/11/16 07/11/16 19:05 19:25 White Blood Count 8.8 TH/MM3 Red Blood Count 3.61 MIL/MM3 Hemoglobin 10.8 GM/DL Hematocrit 32.5 % Mean Corpuscular Volume 90.0 FL Mean Corpuscular Hemoglobin 29.9 PG Mean Corpuscular Hemoglobin 33.2 % Concent Red Cell Distribution Width 14.3 % Platelet Count 183 TH/MM3 Mean Platelet Volume 8.6 FL Neutrophils (%) (Auto) 53.9 % Lymphocytes (%) (Auto) 33.7 % Monocytes (%) (Auto) 9.1 % Eosinophils (%) (Auto) 3.1 % Basophils (%) (Auto) 0.2 % Neutrophils # (Auto) 4.7 TH/MM3 Lymphocytes # (Auto) 3.0 TH/MM3 Monocytes # (Auto) 0.8 TH/MM3 Eosinophils # (Auto) 0.3 TH/MM3 Basophils # (Auto) 0.0 TH/MM3 CBC Comment DIFF FINAL Differential Comment Prothrombin Time 10.9 SEC Prothromb Time International 1.0 RATIO Ratio Activated Partial 25.0 SEC Thromboplast Time Sodium Level 143 MEQ/L Potassium Level 3.7 MEQ/L Chloride Level 102 MEQ/L Carbon Dioxide Level 32.0 MEQ/L Anion Gap 9 MEQ/L Blood Urea Nitrogen 27 MG/DL Creatinine 1.50 MG/DL Estimat Glomerular Filtration 33 ML/MIN Rate Random Glucose 139 MG/DL Lactic Acid Level 2.0 mmol/L Calcium Level 8.4 MG/DL Total Bilirubin 0.5 MG/DL Aspartate Amino Transf 7 U/L (AST/SGOT) Alanine Aminotransferase 13 U/L (ALT/SGPT) Alkaline Phosphatase 88 U/L Total Creatine Kinase 29 U/L Troponin I LESS THAN 0.02 NG/ML B-Type Natriuretic Peptide 137 PG/ML Total Protein 7.7 GM/DL Albumin 3.1 GM/DL Urine Color YELLOW Urine Turbidity CLEAR Urine pH 5.[address] 1.013 Urine Protein NEG mg/dL Urine Glucose (UA) NEG mg/dL Urine Ketones NEG mg/dL Urine Occult Blood NEG Urine Nitrite NEG Urine Bilirubin NEG Urine Leukocyte Esterase NEG Urine RBC 0-3 /hpf Urine WBC 9-14 /hpf Urine Squamous Epithelial 0-5 /hpf Cells Urine Bacteria FEW /hpf Urine Hyaline Casts 6-9 /lpf Urine Mucus FEW /lpf Microscopic Urinalysis Comment CATH-CULTURE IND MDM Medical Decision Making Medical Screen Exam Complete: Yes Emergency Medical Condition: Yes Interpretation(s) EKG: Sinus, rate 70, normal axis, normal intervals, nonspecific inferior/ lateral ST/T changes, no ST segment elevations, unchanged from prior. Differential Diagnosis Mechanical fall, syncope, left hip injury, vertebral injury, intra-abdominal injury, retroperitoneal injury, intracranial abnormality, UTI, pneumonia, anemia Narrative Course Initial vital signs show heart rate 85, blood pressure 78/58, pulse ox 92% on room air, oral temp of 98.9F. Blood pressure improved to 137/75 without any intervention. CBC shows WBC 8.8, hemoglobin 10.8, hematocrit 32.5, platelets 183 CMP is remarkable for BUN 27, creatinine 1.5, GFR 33 which is around her baseline him a random glucose 139, otherwise unremarkable. Lactic acid is 2.0. BNP is 137. Cardiac enzymes are negative Catheterized urine specimen shows 9-14 wbc's, few bacteria, 6-9 hyaline casts, few mucus, 0-5 epithelial cells, Culture indicated Chest x-ray: CONCLUSION: Persistent consolidation and probable small effusion on the left CT head: CONCLUSION: No acute intracranial abnormality. CT abdomen pelvis: CONCLUSION: 1. No visceral or injury or other acute abnormality seen within the abdomen or pelvis. 2. Small to moderate left pleural effusion partly seen similar in size to the chest CT in April. 3. No acute abnormality of the visualized osseous structures. Decreased size of the left upper thigh seroma. CT lumbar spine: CONCLUSION: Moderate to severe acute T12 compression fracture with associated slight spinal and bilateral foraminal stenosis. Case discussed with on-call neurosurgical attending Dr. Alvarado. He is recommending TLSO bracing at this time. The patient and the patient's daughter were made aware of all findings and plan for admission. Case discussed with [facility] hospitalist Dr. Dumas. The patient will be admitted to their service under Dr. Colin. Diagnosis Primary Impression: T12 compression fracture Qualified Code: M48.54XA - T12 compression fracture, initial encounter Additional Impressions: Fall Qualified Code: W19.XXXA - Fall, initial encounter UTI (urinary tract infection) Qualified Code: N39.0 - Urinary tract infection without hematuria, site unspecified Delirium Hypotension Qualified Code: I95.9 - Hypotension, unspecified hypotension type Admitting Information Admitting Physician Requests: Admit Azael Morgan MD Jul 11, 2016 18:54
[2016-07-11 19:10] VITALS: BP 137/75; PULSE 71; RESP 20; TEMP 98.4; O2SAT 97
--- NOTE | 2016-07-11 19:15 | RADHPO ---
EXAM DATE/TIME: 07/11/2016 18:56 [facility] COMPARISON: CT THORAX W/O CONTRAST, May 03, 2016, 13:28. CHEST SINGLE AP, June 05, 2016, 14:36. CHEST P A & LAT, May 29, 2016, 10:37. INDICATIONS : Short of breath. MEDICAL HISTORY : None. SURGICAL HISTORY : None. ENCOUNTER: Initial ACUITY: 1 day PAIN SCORE: 0/10 LOCATION: Bilateral chest FINDINGS: Persistent consolidation again seen left mid and upper lung. There is probably been at least small le ft pleural effusion as well. Right lung remains reasonably clear. No pneumothorax. Heart size stable, within normal limits. CONCLUSION: Persistent consolidation and probable small effusion on the left. Duncan Grande MD on July 11, 2016 at 19:13 Board Certified Radiologist. This report was verified electronically.
[2016-07-11 19:29] LABS: AUTOMATED NEUTROPHIL # 4.7 TH/MM3 (1.8-7.7); BASOPHIL % 0.2 % (0.0-2.0); EOSINOPHIL # 0.3 TH/MM3 (0-0.4); EOSINOPHIL % 3.1 % (0.0-4.0); HEMATOCRIT 32.5 % (35.0-46.0); HEMO FLAGS DIFF FINAL; LYMPH % 33.7 % (9.0-44.0); MEAN CORPUSCULAR HEMOGLOBIN 29.9 PG (27.0-34.0); MEAN CORPUSCULAR HGB CONC 33.2 % (32.0-36.0); MONO % 9.1 % (0.0-8.0); NEUT % 53.9 % (16.0-70.0); PLATELET COUNT 183 TH/MM3 (150-450); RED BLOOD COUNT 3.61 MIL/MM3 (4.00-5.30); RED CELL DISTRIBUTION WIDTH 14.3 % (11.6-17.2); WHITE BLOOD COUNT 8.8 TH/MM3 (4.0-11.0)
[2016-07-11 19:42] LABS: CHLORIDE 102 MEQ/L (98-107); POTASSIUM 3.7 MEQ/L (3.5-5.1); SODIUM (NA) 143 MEQ/L (136-145)
[2016-07-11 19:46] LABS: ANION GAP 9 MEQ/L (5-15)
[2016-07-11 19:47] LABS: BLOOD UREA NITROGEN 27 MG/DL (7-18)
[2016-07-11 19:48] LABS: PROTHROMBIN TIME - PATIENT 10.9 SEC (9.8-11.6)
[2016-07-11 19:49] LABS: ALT (GPT) 13 U/L (10-53); AST (GOT) 7 U/L (15-37)
[2016-07-11 19:50] LABS: GLOMERULAR FILTRATION RATE 33 ML/MIN (>89)
[2016-07-11 19:51] LABS: TOTAL BILIRUBIN ADULT 0.5 MG/DL (0.2-1.0)
[2016-07-11 19:52] LABS: ALKALINE PHOSPHATASE 88 U/L (45-117)
[2016-07-11] MEDS ORDERED: SODIUM CHLOR 0.9% 1000 ML INJ 1,000 ML IV SCH (19:56)
[2016-07-11 19:58] LABS: BLOOD, URINE NEG (NEG); GLUCOSE,URINE NEG (NEG); KETONE, URINE NEG (NEG); NITRITE,URINE NEG (NEG); PH, URINE 5.5 (5.0-8.5)
[2016-07-11 20:01] LABS: URINE COLOR YELLOW (YELLW/STRAW)
[2016-07-11 20:03] LABS: MUCUS URINE FEW /lpf (OCC)
[2016-07-11 20:04] LABS: BACTERIA, URINE FEW /hpf; COMMENT (UR) CATH-CULTURE IND; CULTURE IF INDICATED CATH CULTURE IND; RBC, URINE 0-3 /hpf (0-3); SQUAMOUS EPITHELIAL CELL URINE 0-5 /hpf (0-5)
[2016-07-11] MEDS ORDERED: cefTRIAXone INJ 1,000 MG in SODIUM CHLORIDE 0.9% INJ 100 ML IV ONE (20:15)
[2016-07-11 20:17] LABS: CREATINE KINASE 29 U/L (26-192)
[2016-07-11 20:47] VITALS: BP 137/74; PULSE 78; RESP 20; TEMP 98.3; O2SAT 96
[2016-07-11] MEDS ORDERED: IODIXANOL 320 MG/ML 10 ML VIAL (for Rad CT) IV ONE (20:51)
--- NOTE | 2016-07-11 20:56 | RADHPO ---
EXAM DATE/TIME: 07/11/2016 20:10 [facility] COMPARISON: CT BRAIN W/O CONTRAST, September 13, 2015, 13:52. INDICATIONS : Trauma. Fall one day ago. RADIATION DOSE: 60.64 CTDIvol (mGy) MEDICAL HISTORY : Chronic obstructive pulmonary disease. Dementia. Hypertension. SURGICAL HISTORY : IVC Filter placement. ENCOUNTER: Initial ACUITY: 1 day PAIN SCALE: 0/10 LOCATION: cranial TECHNIQUE: Multiple contiguous axial images were obtained of the head. Using automated exposure control and adj ustment of the mA and/or kV according to patient size, radiation dose was kept as low as reasonably a chievable to obtain optimal diagnostic quality images. FINDINGS: CEREBRUM: The ventricles are normal for age. No evidence of midline shift, mass lesion, hemorrhage or acute in farction. No extra-axial fluid collections are seen. Chronic low attenuation again seen in the periv entricular white matter. POSTERIOR FOSSA: The cerebellum and brainstem are intact. The 4th ventricle is midline. The cerebellopontine angle i s unremarkable. EXTRACRANIAL: The visualized portion of the orbits is intact. Visualized paranasal sinuses and mastoid air cells ar e clear. There is an unchanged partially calcified right parietal scalp lesion. SKULL: The calvaria is intact. No evidence of skull fracture. CONCLUSION: No acute intracranial abnormality. Duncan Grande MD on July 11, 2016 at 20:54 Board Certified Radiologist. This report was verified electronically.
--- NOTE | 2016-07-11 21:01 | RADHPO ---
EXAM DATE/TIME: 07/11/2016 20:15 [facility] COMPARISON: CT THORAX W/O CONTRAST, May 03, 2016, 13:28. CT FEMUR LEFT W/O CONTRAST, May 20, 2016, 17:10 . INDICATIONS : Trauma. Fall one day ago. IV CONTRAST: 50 cc Visipaque (iodixanol) IV ORAL CONTRAST: No oral contrast ingested. RADIATION DOSE: 7.15 CTDIvol (mGy) MEDICAL HISTORY : Chronic obstructive pulmonary disease. Hypertension. Dementia. SURGICAL HISTORY : IVC Filter placement. Left hip. ENCOUNTER: Initial ACUITY: 1 day PAIN SCALE: 0/10 LOCATION: abdomen and pelvis TECHNIQUE: Volumetric scanning of the abdomen and pelvis was performed. Using automated exposure control and ad justment of the mA and/or kV according to patient size, radiation dose was kept as low as reasonably achievable to obtain optimal diagnostic quality images. FINDINGS: LOWER LUNGS: Small to moderate pleural effusion seen at the visualized left lung base with atelectasis. LIVER: Homogeneous density without lesion. There is no dilation of the biliary tree. No calcified gallston es. SPLEEN: Normal size without lesion. PANCREAS: Within normal limits. KIDNEYS: Normal in size and shape. There is no mass, stone or hydronephrosis. ADRENAL GLANDS: Within normal limits. VASCULAR: There is no aortic aneurysm. BOWEL/MESENTERY: The stomach, small bowel, and colon demonstrate no acute abnormality. There is no free intraperitone al air or fluid. ABDOMINAL WALL: Within normal limits. RETROPERITONEUM: There is no lymphadenopathy. BLADDER: No wall thickening or mass. REPRODUCTIVE: Within normal limits. INGUINAL: There is no lymphadenopathy or hernia. MUSCULOSKELETAL: Decrease size left supratrochanteric hematoma. Patient has had previous left femoral nail and fatuma fix ation. No acute abnormality seen of the visualized osseous structures. CONCLUSION: 1. No visceral or injury or other acute abnormality seen within the abdomen or pelvis. 2. Small to moderate left pleural effusion partly seen similar in size to the chest CT in April. 3. No acute abnormality of the visualized osseous structures. Decreased size of the left upper thigh seroma. Duncan Grande MD on July 11, 2016 at 20:55 Board Certified Radiologist. This report was verified electronically.
--- NOTE | 2016-07-11 21:18 | RADHPO ---
EXAM DATE/TIME: 07/11/2016 20:15 [facility] COMPARISON: CHEST PA & LAT, May 29, 2016, 10:37. INDICATIONS : Trauma. Fall one day ago. RADIATION DOSE: ; Reconstructed from previous dataset MEDICAL HISTORY : Chronic obstructive pulmonary disease. Hypertension. Dementia. SURGICAL HISTORY : IVC Filter placement. Left hip. ENCOUNTER: Initial ACUITY: 1 day PAIN SCALE: 0/10 LOCATION: Lower back. TECHNIQUE: Volumetric scanning of the lumbar spine was performed. Multiplanar reconstructions in the sagittal, coronal and oblique axial planes were performed. Using automated exposure control and adjustment of the mA and/or kV according to patient size, radiation dose was kept as low as reasonably achievable t o obtain optimal diagnostic quality images. FINDINGS: There is a moderate to severe compression fracture involving the superior endplate of T12. This appea rs acute. It is new from the comparison 2 view chest x-ray. There is about 6 mm of retropulsion which contributes to very slight spinal stenosis. There is mild fracture-associated bilateral foraminal st enosis. Lumbar vertebral bodies are intact and have normal alignment. There is mild disc space narrowing and small, broad posterior protrusions with bilateral facet osteoarthritis at L3/L4, L4/L5 and L5/S1. No high-grade foraminal or spinal stenosis demonstrated. No epidural hematoma seen. Juxtavertebral soft tissues are without a perceptible acute abnormality. CONCLUSION: Moderate to severe acute T12 compression fracture with associated slight spinal and bilateral foramin al stenosis. Duncan Grande MD on July 11, 2016 at 21:13 Board Certified Radiologist. This report was verified electronically.
[2016-07-11 21:47] VITALS: BP 156/83; PULSE 68; RESP 20; O2SAT 68; O2SAT 96
[2016-07-11] MEDS ORDERED: SODIUM CHLORIDE 0.9% FLUSH 5 ML FLUSH FLUSH PRN (22:15)
[2016-07-11] MEDS ORDERED: NALOXONE HCL 0.4 MG/ML AMP IV PRN (22:15)
[2016-07-11] MEDS ORDERED: ALPRAZolam 0.5 MG TAB PO PRN (22:30)
[2016-07-11] MEDS ORDERED: ACETAMINOPHEN/HYDROcodone 325 MG/5 MG TAB PO PRN (22:30)
[2016-07-11] MEDS ORDERED: MORPHINE SULFATE 4 MG/ML INJ IV PUSH PRN (22:30)
[2016-07-11] MEDS ORDERED: RESP: ALBUTEROL CONC 2.5 MG/0.5 ML NEB NEB PRN (22:30)
[2016-07-11] MEDS: SODIUM CHLOR 0.45% 1000 ML INJ 1,000 ML IV SCH (22:42)
[2016-07-11 23:47] VITALS: BP 153/75; PULSE 68; RESP 20
[2016-07-12] VITALS (9 sets, daily range): BP systolic 110–185; BP diastolic 55–80; PULSE 68–94; RESP 17–20; TEMP 97.1–99.6; O2SAT 93–100
[2016-07-12] MEDS: LEVOTHYROXINE SODIUM 50 MCG TAB PO SCH (05:43)
[2016-07-12 07:12] LABS: BASOPHIL % 0.4 % (0.0-2.0); EOSINOPHIL # 0.3 TH/MM3 (0-0.4); EOSINOPHIL % 4.4 % (0.0-4.0); HEMATOCRIT 30.6 % (35.0-46.0); HEMO FLAGS DIFF FINAL; LYMPH % 33.1 % (9.0-44.0); LYMPHOCYTE # 2.5 TH/MM3 (1.0-4.8); MEAN CELL VOLUME 88.4 FL (80.0-100.0); MEAN CORPUSCULAR HEMOGLOBIN 29.5 PG (27.0-34.0); MEAN CORPUSCULAR HGB CONC 33.4 % (32.0-36.0); MONO % 9.6 % (0.0-8.0); NEUT % 52.5 % (16.0-70.0); PLATELET COUNT 154 TH/MM3 (150-450); RED BLOOD COUNT 3.46 MIL/MM3 (4.00-5.30); RED CELL DISTRIBUTION WIDTH 14.8 % (11.6-17.2); WHITE BLOOD COUNT 7.6 TH/MM3 (4.0-11.0)
[2016-07-12 07:41] LABS: POTASSIUM 3.5 MEQ/L (3.5-5.1)
[2016-07-12] MEDS: CITALOPRAM HYDROBROMIDE 20 MG TAB PO SCH (11:44)
[2016-07-12] MEDS: POTASSIUM CHLORIDE 10 MEQ CONTROLLED RELEASE TAB PO SCH (11:44)
[2016-07-12] MEDS: LOSARTAN 50 MG TAB PO SCH (11:44)
[2016-07-12] MEDS: ATORVASTATIN 10 MG TAB PO SCH (11:44)
[2016-07-12] MEDS: ASPIRIN EC 81 MG TABEC PO SCH (11:44)
--- NOTE | 2016-07-12 13:18 | HHI.HP ---
HPI Service [facility] Primary Care Physician Senthil Fierro M.D. Admission Diagnosis T12 compression fracture, fall, UTI, hypotension Diagnoses: (Heather Paris) Travel History International Travel<30 Days: No Contact w/Intl Traveler <30 Da: No Traveled to Known Affected Are: No (Heather Paris) Past Family Social History Allergies: Coded Allergies: No Known Allergies (Verified , 07/11/16) Physical Exam Vital Signs Vital Signs Date Time Temp Pulse Resp B/P Pulse Ox O2 Delivery O2 Flow Rate FiO2 07/12/16 12:01 97.1 73 17 143/63 98 07/12/16 08:35 98.4 94 19 110/55 94 07/12/16 03:15 97.6 72 20 132/67 100 07/12/16 02:55 77 20 149/60 96 Nasal Cannula 2 07/12/16 02:00 77 20 151/69 96 07/12/16 01:00 68 20 161/80 96 07/11/16 23:47 68 20 153/75 07/11/16 21:47 68 20 156/83 96 Nasal Cannula 2 07/11/16 20:47 98.3 78 20 137/74 96 Nasal Cannula 2 07/11/16 19:34 71 20 97 07/11/16 19:10 98.4 71 20 137/75 97 Nasal Cannula 2 07/11/16 18:21 98.9 85 16 78/58 92 Physical Exam GENERAL: This is a well-nourished, well-developed patient, in no apparent distress. SKIN: No rashes, ecchymoses or lesions. Cool and dry. HEAD: Atraumatic. Normocephalic. No temporal or scalp tenderness. EYES: Pupils equal round and reactive. Extraocular motions intact. No scleral icterus. No injection or drainage. ENT: Nose without bleeding, purulent drainage or septal hematoma. Throat without erythema, tonsillar hypertrophy or exudate. Uvula midline. Airway patent. NECK: Trachea midline. No JVD or lymphadenopathy. Supple, nontender, no meningeal signs. CARDIOVASCULAR: Regular rate and rhythm without murmurs, gallops, or rubs. RESPIRATORY: Clear to auscultation. Breath sounds equal bilaterally. No wheezes , rales, or rhonchi. GASTROINTESTINAL: Abdomen soft, non-tender, nondistended. No hepato-splenomegaly , or palpable masses. No guarding. MUSCULOSKELETAL: Extremities without clubbing, cyanosis, or edema. No joint tenderness, effusion, or edema noted. No calf tenderness. Negative Homans sign bilaterally. NEUROLOGICAL: Awake and alert. Cranial nerves II through XII intact. Motor and sensory grossly within normal limits. Five out of 5 muscle strength in all muscle groups. Normal speech. Laboratory Laboratory Tests Test 07/11/16 07/11/16 07/12/16 19:05 19:25 06:14 White Blood Count 8.8 7.6 Red Blood Count 3.61 3.46 Hemoglobin 10.8 10.2 Hematocrit 32.5 30.6 Mean Corpuscular Volume 90.0 88.4 Mean Corpuscular Hemoglobin 29.9 29.5 Mean Corpuscular Hemoglobin 33.2 33.4 Concent Red Cell Distribution Width 14.3 14.8 Platelet Count 183 154 Mean Platelet Volume 8.6 8.9 Neutrophils (%) (Auto) 53.9 52.5 Lymphocytes (%) (Auto) 33.7 33.1 Monocytes (%) (Auto) 9.1 9.6 Eosinophils (%) (Auto) 3.1 4.4 Basophils (%) (Auto) 0.2 0.4 Neutrophils # (Auto) 4.7 4.0 Lymphocytes # (Auto) 3.0 2.5 Monocytes # (Auto) 0.8 0.7 Eosinophils # (Auto) 0.3 0.3 Basophils # (Auto) 0.0 0.0 CBC Comment DIFF FINAL DIFF FINAL Differential Comment Prothrombin Time 10.9 Prothromb Time International 1.0 Ratio Activated Partial 25.0 Thromboplast Time Sodium Level 143 142 Potassium Level 3.7 3.5 Chloride Level 102 103 Carbon Dioxide Level 32.0 32.0 Anion Gap 9 7 Blood Urea Nitrogen 27 23 Creatinine 1.50 1.18 Estimat Glomerular Filtration 33 43 Rate Random Glucose 139 88 Lactic Acid Level 2.0 Calcium Level 8.4 8.5 Total Bilirubin 0.5 Aspartate Amino Transf 7 (AST/SGOT) Alanine Aminotransferase 13 (ALT/SGPT) Alkaline Phosphatase 88 Total Creatine Kinase 29 Troponin I LESS THAN 0.02 B-Type Natriuretic Peptide 137 Total Protein 7.7 Albumin 3.1 Urine Color YELLOW Urine Turbidity CLEAR Urine pH 5.5 Urine Specific [place] 1.013 Urine Protein NEG Urine Glucose (UA) NEG Urine Ketones NEG Urine Occult Blood NEG Urine Nitrite NEG Urine Bilirubin NEG Urine Leukocyte Esterase NEG Urine RBC 0-3 Urine WBC 9-14 Urine Squamous Epithelial 0-5 Cells Urine Bacteria FEW Urine Hyaline Casts 6-9 Urine Mucus FEW Microscopic Urinalysis Comment CATH-CULTURE IND Date/Time Procedure Status Source Growth 07/11/16 19:25 Urine Culture Received Urine Catheterized Urine Pending 07/11/16 19:10 Aerobic Blood Culture - Preliminary Resulted Blood Peripheral NO GROWTH IN 1 DAY 07/11/16 19:10 Anaerobic Blood Culture - Preliminary Resulted Blood Peripheral NO GROWTH IN 1 DAY (Heather Paris) Result Diagram: 07/12/16 0614 07/12/16 0614 Assessment and Plan Assessment and Plan dictated. [id number] (Heather Paris) Assessment and Plan PT IS SEEN & EXAMINED D/W PT D/W HEATHER SEE H&P SEE ORDERS WILL F/U (Sidra Colin MD) Physician Certification 2 Midnight Certification Type: Admission for Inpatient Services Order for Inpatient Services The services are ordered in accordance with Medicare regulations or non- Medicare payer requirements, as applicable. In the case of services not specified as inpatient-only, they are appropriately provided as inpatient services in accordance with the 2-midnight benchmark. Estimated LOS (days): 5 5 days is the estimated time the patient will need to remain in the hospital, assuming treatment plan goals are met and no additional complications. Post-Hospital Plan: SNF (Heather Paris) Heather Paris Jul 12, 2016 13:18 Sidra Colin MD Jul 12, 2016 17:08
--- NOTE | 2016-07-12 14:17 | MH ---
cc: CATHERINE COLNI DATE OF ADMISSION: 07/11/2016 CHIEF COMPLAINT: Fall. TRAVEL IN THE LAST THIRTY DAYS: None. HISTORY OF PRESENT ILLNESS: This is a pleasant hard of hearing 89-year-old white female who had been in her usual state of health up until the past few days. The patient got up some time in the middle of the night to go to the restroom and according to the record made it back to her bed. She did fall in the process of that trip but does not recall anything that happened. According to the record and family she ambulates with a walker. She does have pleasant confusion. She can only answer simple questions. She is very hard of hearing. The patient does have a history of a left hip fracture repair earlier this year and the patient had been doing fairly well. According to the daughter the patient does fairly well during the daytime but at night seems to get more confused and will ramble around in the house. PAST MEDICAL HISTORY: Most of this information is being gathered by the record due to the patient's altered mental status. 1. Aspirin for anticoagulant therapy. 2. History of depression. 3. Hypertension. 4. Congestive heart failure. 5. COPD. 6. Dementia. 7. Hypertension. 8. Sinusitis. 9. Arthritis. 10. Anxiety. 11. COPD. 12. History of pneumonia treatment. 13. Hypothyroidism. PAST SURGICAL HISTORY: 1. Eye surgery, cataracts. 2. Thoracentesis. 3. Inferior vena cava filter placed. ALLERGIES: NO KNOWN ALLERGIES. MEDICATIONS REPORTED: 1. Aspirin. 2. Albuterol. 3. Lipitor. 4. Xanax. 5. Micardis. SOCIAL HISTORY: The patient lives in the home with her daughter. She does partake of some tobacco use. No illicit drugs. Rare alcohol intake. REVIEW OF SYSTEMS: Unable to obtain except for very simple questions due to the patient's dementia. PHYSICAL EXAMINATION: VITAL SIGNS: Temperature is 97.1, pulse labile between 68 and 94, respirations 17, blood pressure 143/63 and has been as high as 161/80, 02 sat 98 currently on two liters nasal cannula. GENERAL: Elderly white female looks to be her stated age resting in the bed. No facial grimace. SKIN: Pin, warm and dry. No rashes. Occasional bruising noted on her lower extremities and her arms. HEAD, EYES, EARS, NOSE, THROAT: Normocephalic and atraumatic. Pupils equal, round and reactive to light and accommodation. The mucous membranes are moist and pink. NECK: The neck is supple. HEART: S1 and S2. Regular rate and rhythm. She has no edema and her pulses are intact. No murmurs, rubs or gallops appreciated. PULMONARY: Essentially clear anteriorly and posteriorly with no wheezes, rales or rhonchi. She does have some decreased breath sounds noted in her left base. ABDOMEN: Round, soft, nontender and nondistended. Active bowel sounds in all four quads. MUSCULOSKELETAL: She can move her extremities with purpose. She does have some generalized weakness noted especially in her lower extremities. She has equal hand senior java data architect. NEUROLOGIC: Alert, awake, responds to verbal stimuli and is a poor historian. PSYCHOLOGICAL: Appropriate mood and affect. LABORATORY FINDINGS: WBC count 7.6, RBC 3.46, hemoglobin 10.2, hematocrit 30.6, monocyte auto count 9.6, eosinophils 4.4. PT/INR 1. Chemistry: Sodium 142, potassium 3.5, chloride 103, carbon dioxide 32, anion gap 7, BUN 23, creatinine 1.18, GFR 43, lactic acid 2. Troponin less than 0.02. BNP 137. Albumin 3.1. DIAGNOSTIC DATA: Lumbar CT shows moderate to severe acute T12 compression fracture with associated slight spinal and bilateral foraminal stenosis. CT of the head shows no acute abnormalities. ABDOMEN/PELVIS shows no visceral injury, small to moderate left pleural effusion similar in size to the CT of the chest in April, decreased size of the left upper thigh seroma. Chest x-ray shows consolidation and probable left effusion on the left and probable small effusion on the left. ASSESSMENT: 1. T12 compression fracture with slight spinal and bilateral foraminal stenosis. 2. Moderate protein-calorie malnutrition. 3. Status post fall. 4. Altered mental status with dementia and possible delirium with some delirium. 5. Acute kidney injury. 6. Possible urinary tract infection. 7. Hypertension with a hypotensive event. PLAN: 1. Admit. 2. Monitor her vital signs. 3. Monitor her labs. 4. Treat any abnormals. 5. Urinalysis was positive. We will do a culture and sensitivity, which is pending. 6. Gentle hydration with IV fluids at 73 cc/hour. 7. The patient will be an inpatient certification due to the multiple medical comorbidities that will be treated during this event. 8. SCDs for DVT prophylaxis. 9. The patient will be on a regular diet. 10. Medications will be reconciled. 11. The patient will be placed on aspirin for DVT prophylaxis. 12. Xanax p.o. for any increased anxiety. 13. Pain management. 14. Neurosurgery has been consulted for his expert opinion on any surgical intervention or plan of care needed for this patient. To my knowledge, the patient is full code, full aggressive care and we will follow. DICTATED BY KATHERINE MONTOYA. MD BRODIE Leonard/DEBRA /1:08 PM /2:14 PM PT IS SEEN & EXAMINED D/W PT D/W MICHELLE SEE H&P SEE ORDERS WILL F/U Catherine Colin MD Jul 12, 2016 17:08 [facility]
--- NOTE | 2016-07-12 15:31 | MB ---
cc: SWAPNA PRIETO M.D. DATE OF CONSULTATION 07/12/2016 REASON FOR CONSULTATION T12 chronic vertebral body fracture. HISTORY OF PRESENT ILLNESS The patient is a 89-year-old female who presents with 2-day history of complaints of left hip pain. Reportedly she also had some back pain when she presented to the [facility] emergency room, but right now she is in the [facility] facility and relates that her back does not hurt to me. CT scan of the lumbar spine obtained reveal moderate T12 interbody compression fracture with slight retropulsion on the radiologist felt that there may be an acute component to this. She has diffuse osteopenia and sclerosis of the superior end plates noted also. She denies any numbness or paresthesia lower extremities. PAST MEDICAL HISTORY 1. As congestive heart failure 2. coronary artery disease 3. Cardiomyopathy 4. COPD 5. hypertension 6. IVC full to in place 7. his thoracentesis, I surgery. MEDICATIONS 1. Albuterol 2.5 mg nebulizer q.4 h p.r.n. 2. Xanax 0.5 mg q.6 h p.r.n. 3. Aspirin 81 mg daily. 4. Lipitor 10 mg daily. 5. Celexa 20 mg daily. 6. Lasix 20 mg every other day. 7. Synthroid 50 mcg daily. 8. Potassium chloride 10 mEq daily. 9. Micardis 80 mg daily. ALLERGIES NO KNOWN DRUG ALLERGIES. SOCIAL HISTORY She is a resides with a daughter at home. No alcohol or tobacco use. LABORATORY FINDINGS White blood cell count 7.6, hemoglobin 10.2, platelet count of 154. PT 10.9, INR 1.0, PTT 25, sodium 142, potassium 3.5, BUN 23, creatinine 1.18, glucose 88. PHYSICAL EXAMINATION VITAL SIGNS: Temperature 97.1, pulse 73, respiratory rate 17, blood pressure 143/63, oxygen saturations, 98% releases cannula. HEAD, EYES, EARS, NOSE, AND THROAT: Normocephalic, atraumatic. NECK: Neck is supple. No spinal tenderness to palpation noted in the correct his thoracic and lumbar spine. CHEST: Clear bilaterally HEART: Regular rate rhythm, normal sinus. ABDOMEN: Soft, nontender. No sinus edema. NEUROLOGIC: She is a will wake, alert. She is laying in bed eating her lunch. She is a grossly intact. EXTREMITIES: She moves all four extremities with relatively good strength. Negative Babinski. NEUROLOGIC: Speech is fluent with light touch sensation intact. IMPRESSION Acute on chronic T12 flow with the body compression fracture with slight retropulsion. At this point the patient does not relate much of a low back pain. She has extensive medical comorbidities. PLAN/RECOMMENDATIONS 1. TLSO brace p.r.n. use for comfort and pain management and rehabilitation. 2. She is not a candidate for any surgical intervention for the T12 fracture. MD SAMUEL Oropeza/sabrina /2:09 PM /2:43 PM
--- NOTE | 2016-07-12 15:34 | EKG ---
Date Performed: 07/11/2016 Time Performed: 19:39:34 PTAGE: 89 years EKG: Sinus rhythm . Inferior/lateral ST-T changes are nonspecific Borderline ECG PREVIOUS TRACING : 06/05/2016 14.50 Compared to prior tracing no significant change DOCTOR: Wanda Marie Interpretating Date/Time 07/12/2016 15:33:00
[2016-07-12] MEDS: SODIUM CHLOR 0.45% 1000 ML INJ 1,000 ML IV SCH (17:20)
[2016-07-12] MEDS: SODIUM CHLORIDE 0.9% FLUSH 5 ML FLUSH FLUSH SCH (20:54)
[2016-07-13] VITALS: BP 165/78; PULSE 95; RESP 18; TEMP 99.7; O2SAT 93
[2016-07-13 04:00] VITALS: BP 141/76; PULSE 95; RESP 18; TEMP 98.9; O2SAT 93
[2016-07-13] MEDS: LEVOTHYROXINE SODIUM 50 MCG TAB PO SCH (06:09)
[2016-07-13 08:43] VITALS: BP 120/70; PULSE 83; RESP 18; TEMP 97.2
[2016-07-13] MEDS: SODIUM CHLORIDE 0.9% FLUSH 5 ML FLUSH FLUSH SCH (09:00)
[2016-07-13] MEDS: POTASSIUM CHLORIDE 10 MEQ CONTROLLED RELEASE TAB PO SCH (09:30)
[2016-07-13] MEDS: ASPIRIN EC 81 MG TABEC PO SCH (09:31)
[2016-07-13] MEDS: LOSARTAN 50 MG TAB PO SCH (09:31)
[2016-07-13] MEDS: ATORVASTATIN 10 MG TAB PO SCH (09:31)
[2016-07-13] MEDS: CITALOPRAM HYDROBROMIDE 20 MG TAB PO SCH (09:31)
[2016-07-13 12:44] VITALS: BP 136/76; PULSE 78; RESP 18; TEMP 97.3; O2SAT 97
--- NOTE | 2016-07-13 12:49 | HHI.FF ---
Face to Face Verification Diagnosis: (1) T12 compression fracture Physical Therapy Order: Evaluate and Treat Home Health Nursing Order: Medical education Nursing assessment with vital signs Geology Associate Order: To Evaluate: Support services I have seen patient Ramona Duggan on 07/13/16. My clinical findings support the need for the requested home health care services because: Deconditioned w/ increased weakness Limited ability to care for self High risk of falls I certify that my clinical findings support that this patient is homebound because: Impaired cognitive ability/safety Unsteady gait/balance Unsafe to leave home unassisted Dori Linn Jul 13, 2016 12:48
--- NOTE | 2016-07-13 13:12 | HHI.PR ---
Subjective Subjective Remarks low back pain [place] alert, oriented x 2 eating okay no cp no sob no cough daughter at [facility], would like pt. to go home since she was in rehab for a prolonged period of time. Has plenty of help at home, has DME Review of Systems Constitutional Constitutional Remarks 12 point review of systems completed, limited, hard of hearing Vitals/Results Intake & Output 07/12/16 07/12/16 07/13/16 15:00 23:00 07:00 Intake Total 240 ml Balance 240 ml Intake Oral 240 ml # Voids 2 3 # Bowel Movements 0 Vital Signs Vital Signs Date Time Temp Pulse Resp B/P Pulse Ox O2 Delivery O2 Flow Rate FiO2 07/13/16 08:43 97.2 83 18 120/70 07/13/16 04:00 98.9 95 18 141/76 93 07/13/16 00:00 99.7 95 18 165/78 93 07/12/16 20:00 99.6 85 18 132/75 93 07/12/16 18:07 98 Nasal Cannula 2.00 07/12/16 16:41 98.6 76 18 185/79 98 CBC/BMP: 07/12/16 0614 07/12/16 0614 Physical Exam General General Appearance: Well Developed, No Acute Distress, Comfortable Eyes Eye Exam: Pupils Equal, Pupils Reactive Ears & Nose Ears & Nose Exam: Nasal Mucosa [place] Throat Throat Exam: Oral Mucosa [place] & Moist Neck Neck Exam: Neck Supple, Trachea Midline Pulmonary Resp Exam: No Distress, Decreased Bases Cardiology CV Exam: Regular Gastrointestinal/Abdomen GI Exam: Soft, Non-Tender, Bowel Sounds Present, Non-Distended Musculoskeletal MS Exam: Joints Intact Integumentary Skin Exam: Warm, Dry Extremeties Extremities Exam: No Edema, Pedal Pulses Palpable Neurologic Neuro Exam: Alert, Awake, Speech Clear, Moving All Extremities, No Focal Deficits Neuro Remarks [place] Psychiatric Psych Exam: Appropriate Responses VTE Prophylaxis VTE Prophylaxis Device: SCDs Assessment/Plan Assessment/Plan 1. T12 compression fracture with slight spinal and bilateral foraminal stenosis. 2. Moderate protein-calorie malnutrition. 3. Status post fall. 4. Altered mental status with dementia and possible delirium with some delirium. 5. Acute kidney injury. 6. Possible urinary tract infection. 7. Hypertension with a hypotensive event. 8. Hx DVT, s/p IVC filter 9. S/P fall with left hip fx and repair PLAN: appreciate neurosurgery input non operative management recommended TLSO brace ordered clear for discharge PT eval pending UTI, group D enterococcus, sens. pending start Cipro 250 mg PO BID continue home meds BP stable now, no further episodes of hypotension renal function improving received IVF in ED hx CHF, stable SCD for DVT prophylaxis CM consult for DC planning daughter would like home with PT Poss. dc today after PT evaluates D/W RN D/W Dr. Colin D/W pt, daughter This patient was seen by myself and Dr. Colin, this note is written on his behalf Dori Linn Jul 13, 2016 13:12
[2016-07-13] MEDS ORDERED: HYDR-3516 PO (14:01)
[2016-07-13] MEDS ORDERED: AMOX500C PO (14:01)
[2016-07-13 16:05] VITALS: BP 121/66; PULSE 73; RESP 20; TEMP 96.9; O2SAT 93
--- NOTE | 2016-07-13 17:07 | HHI.DS ---
Discharge Summary Admission Date Jul 11, 2016 at 22:10 Discharge Date: Jul 13, 2016 Admitting Diagnosis T12 compression fracture, fall, UTI, hypotension (1) Fall (2) UTI (urinary tract infection) (3) T12 compression fracture CBC/BMP: 07/12/16 0614 07/12/16 0614 Significant Findings Laboratory Tests Test 07/11/16 07/11/16 07/12/16 19:05 19:25 06:14 Blood Urea Nitrogen 27 MG/DL (7-18) 23 MG/DL (7-18) Creatinine 1.50 MG/DL 1.18 MG/DL (0.50-1.00) (0.50-1.00) Estimat Glomerular Filtration 33 ML/MIN (>89) 43 ML/MIN (>89) Rate Random Glucose 139 MG/DL (74-106) Calcium Level 8.4 MG/DL (8.5-10.1) Aspartate Amino Transf 7 U/L (15-37) (AST/SGOT) Troponin I LESS THAN 0.02 NG/ML (0.02-0.05) B-Type Natriuretic Peptide 137 PG/ML (0-100) Albumin 3.1 GM/DL (3.4-5.0) Red Blood Count 3.61 MIL/MM3 3.46 MIL/MM3 (4.00-5.30) (4.00-5.30) Hemoglobin 10.8 GM/DL 10.2 GM/DL (11.6-15.3) (11.6-15.3) Hematocrit 32.5 % 30.6 % (35.0-46.0) (35.0-46.0) Monocytes (%) (Auto) 9.1 % (0.0-8.0) 9.6 % (0.0-8.0) Urine WBC 9-14 /hpf (0-5) Urine Bacteria FEW /hpf (NONE) Urine Hyaline Casts 6-9 /lpf (RARE) Urine Mucus FEW /lpf (OCC) Eosinophils (%) (Auto) 4.4 % (0.0-4.0) Imaging Last Impressions Chest X-Ray 07/11/16 1841 Signed Impressions: Service Date/Time: June 18:56 - CONCLUSION: Persistent consolidation and probable small effusion on the left. Duncan Grande MD Lumbar Spine CT 07/11/16 0000 Signed Impressions: Service Date/Time: June 20:15 - CONCLUSION: Moderate to severe acute T12 compression fracture with associated slight spinal and bilateral foraminal stenosis. Duncan Grande MD Head CT 07/11/16 0000 Signed Impressions: Service Date/Time: June 20:10 - CONCLUSION: No acute intracranial abnormality. Duncan Grande MD Abdomen/Pelvis CT 07/11/16 0000 Signed Impressions: Service Date/Time: June 20:15 - CONCLUSION: 1. No visceral or injury or other acute abnormality seen within the abdomen or pelvis. 2. Small to moderate left pleural effusion partly seen similar in size to the chest CT in April. 3. No acute abnormality of the visualized osseous structures. Decreased size of the left upper thigh seroma. Duncan Grande MD Hospital Course This is a pleasant hard of hearing 89-year-old white female who had been in her usual state of health up until the past few days. The patient got up some time in the middle of the night to go to the restroom and according to the record made it back to her bed. She did fall in the process but does not recall anything that happened. According to the record and family she ambulates with a walker. She is pleasantly confused and [place]. She can only answer simple questions. The patient does have a history of a left hip fracture repair earlier this year and the patient had been doing fairly well after extensive stay at [facility]. According to the daughter the patient does fairly well during the daytime but at night seems to get more confused and will ramble around in the house. In the ED, she was evaluated: LABORATORY FINDINGS: WBC count 7.6, RBC 3.46, hemoglobin 10.2, hematocrit 30.6, monocyte auto count 9.6, eosinophils 4.4. PT/INR 1. Chemistry: Sodium 142, potassium 3.5, chloride 103, carbon dioxide 32, anion gap 7, BUN 23, creatinine 1.18, GFR 43, lactic acid 2. Troponin less than 0.02. BNP 137. Albumin 3.1. DIAGNOSTIC DATA: Lumbar CT shows moderate to severe acute T12 compression fracture with associated slight spinal and bilateral foraminal stenosis. CT of the head shows no acute abnormalities. ABDOMEN/PELVIS shows no visceral injury, small to moderate left pleural effusion similar in size to the CT of the chest in April, decreased size of the left upper thigh seroma. Chest x-ray shows consolidation and probable left effusion on the left and probable small effusion on the left. She was admitted for: 1. T12 compression fracture with slight spinal and bilateral foraminal stenosis. 2. Moderate protein-calorie malnutrition. 3. Status post fall. 4. Altered mental status with dementia and possible delirium with some delirium. 5. Acute kidney injury. 6. Possible urinary tract infection. 7. Hypertension with a hypotensive event. During the course of the hospitalization, the following took place. pt. admitted, put on pain management Neurosurgery consulted. appreciated neurosurgery input-non operative management recommended TLSO brace ordered cleared for discharge PT evaluated, walked with walker, did well. UTI, group D enterococcus, sens. noted put on Amoxicillin on discharge continued home meds had hypotension x 1 on admission, which resolved after IVF BP stable now, no further episodes of hypotension renal function improved received IVF in ED hx CHF, stable SCD for DVT prophylaxis CM consult for DC planning daughter wanted to take pt. home with PT Pt. ambulated with PT CM arranged [facility] pt.'s pain was well controlled Pt. discharged home in stable condition with TLSO brace in place Pt Condition on Discharge: Stable Discharge Disposition: Disch w/ Home Health Serv Discharge Instructions DIET: Follow Instructions for: Heart Healthy Diet Fluid Restrictions: none Activities you can perform: Weight Bearing as Ros Other Activity Instructions: fall precaution/ use brace when ambulating/standing Follow up Referrals: PCP Follow-up - 1 Week New Medications: Amoxicillin (Amoxicillin) 500 Mg Cap 500 MG PO TID Infection #15 Ref 0 CAP Hydrocodone-Acetaminophen (Hydrocodone-Acetaminophen) 5-325 mg Tab 1 TAB PO Q4H PRN pain 2-6 #40 TAB Continued Medications: Albuterol Neb (Albuterol Neb) 2.5 Mg/0.5 Ml Neb 2.5 MG NEB Q4HR NEB Note: The Albuterol Sulfate Inhalation Solution is concentrated and must be diluted. Read complete instructions carefully before using. PRN WHEEZING EA Alprazolam (Xanax) 0.5 Mg Tab 0.5 MG PO Q6H PRN ANXIETY Ref [address] (Aspirin 81) 81 Mg Tabdr 162 MG PO DAILY Blood Clot Prevention Ref 0 TAB Atorvastatin (Lipitor) 10 Mg Tab 10 MG PO DAILY Cholesterol Management #30 Ref 0 TAB Citalopram (Celexa) 20 Mg Tab 20 MG PO DAILY #30 TAB Furosemide (Lasix) 20 Mg Tab 20 MG PO EVERY OTHER DAY #10 Ref 0 TAB Levothyroxine (Synthroid) 50 Mcg Tab 50 MCG PO DAILY@06 #30 TAB Potassium Chloride ER (Klor-Con 10) 10 Meq Tab 10 MEQ PO DAILY hypokalemia #30 TAB Telmisartan (Micardis) 20 Mg Tab 80 MG PO DAILY Blood Pressure Management #30 Ref 0 TAB Dori Linn Jul 13, 2016 17:07
[2016-07-13] MEDS ORDERED: CIPROFLOXACIN 250 MG TAB PO SCH (21:00)
== END 2016-07-13 16:05 | disposition home health service (06) | DRG 552 ==
LOC: PHED 18:18 → PHEDA 22:10 → N05A 07-12 02:49
PROVIDERS: ADMIT Specialist; ATTEND Specialist
DX: S22.089A Unspecified fracture of T11-T12 vertebra, initial encounter for closed fracture (principal); N17.9 Acute kidney failure, unspecified; I95.9 Hypotension, unspecified; E44.0 Moderate protein-calorie malnutrition; I11.0 Hypertensive heart disease with heart failure; I42.9 Cardiomyopathy, unspecified; F03.90 Unspecified dementia, unspecified severity, without behavioral disturbance, psychotic disturbance, mood disturbance, and anxiety; I50.9 Heart failure, unspecified; N39.0 Urinary tract infection, site not specified; I25.10 Atherosclerotic heart disease of native coronary artery without angina pectoris; J44.9 Chronic obstructive pulmonary disease, unspecified; F32.9 Major depressive disorder, single episode, unspecified; E03.9 Hypothyroidism, unspecified; H91.90 Unspecified hearing loss, unspecified ear; M19.90 Unspecified osteoarthritis, unspecified site; R41.82 Altered mental status, unspecified; B95.2 Enterococcus as the cause of diseases classified elsewhere; W19.XXXA Unspecified fall, initial encounter; F41.9 Anxiety disorder, unspecified; Z72.0 Tobacco use; Z68.22 Body mass index [BMI] 22.0-22.9, adult; Z86.718 Personal history of other venous thrombosis and embolism
CPT/HCPCS: 70450; 71010; 72131; 74177; 80048; 80053; 81001; 82550; 83605; 83880; 84484; 85025; 85610; 85730; 87040; 87077; 87086; 87186; 93005; 96365; J0696; J7030; L0200; L0484; P9612; Q9967

== ENCOUNTER 2016-09-15 12:13 | Emergency (ER) | payer MEDICARE ==
[~2016-09-15] VITALS: Ht 152.4 cm; Wt 50.0 kg
[~2016-09-15 12:13] MED LIST changes: +AMOX500C PO; -CARV3.12 PO; +HYDR-3516 PO; -IPRASOL NEB; -ISOS30TA3 PO; -MUCI30TA2 PO; -SYMB80AE INH
[2016-09-15 12:15] VITALS: BP 114/67; PULSE 84; RESP 16; TEMP 98.9; O2SAT 93
[2016-09-15] MEDS ORDERED: ASPI325T PO (12:24)
[2016-09-15] MEDS ORDERED: SODIUM CHLORIDE 0.9% FLUSH 10 ML FLUSH IV FLUSH PRN (12:30)
--- NOTE | 2016-09-15 12:33 | PD ---
HPI Chief Complaint: Back/ Neck Pain or Injury Time Seen by Provider: 12:21 Travel History International Travel<30 days: No Contact w/Intl Traveler<30days: No Traveled to known affect area: No History of Present Illness HPI 89-year-old female here with daughter, who provides additional history, with complaint of back pain and possible UTI. Daughter states the patient gets frequent urinary tract infection is usually asymptomatic. She has had a scant amount of low back pain over the course of the last 1-2 days. She is chronically urinary incontinent, and wears depends. Daughter states that urine has been more concentrated smelling. She has had some nausea, but no vomiting. Notes slight anorexia. Daughter states this morning she broke out into chills , but no documented fever. PFSH Past Medical History Hx Anticoagulant Therapy: Yes (162MG ASA) Arthritis: No Asthma: No Autoimmune Disease: No Anxiety: No Depression: Yes Heart Rhythm Problems: No Cancer: No Cardiovascular Problems: Yes (IVC FILTER; HTN; ) High Cholesterol: No Chemotherapy: No Chest Pain: No Congestive Heart Failure: Yes COPD: Yes Cerebrovascular Accident: No Dementia: Yes Diabetes: No Diminished Hearing: No Endocrine: Yes Gastrointestinal Disorders: No GERD: No Glaucoma: No Genitourinary: No Hepatitis: No Hiatal Hernia: No Hypertension: Yes Immune Disorder: No Implanted Vascular Access Dvce: No Kidney Stones: No Musculoskeletal: Yes Neurologic: No Psychiatric: Yes Reproductive: No Respiratory: Yes (COPD) Immunizations Current: Yes Migraines: No Pneumonia: Yes Radiation Therapy: No Renal Failure: No Seizures: No Sickle Cell Disease: No Sleep Apnea: No Thyroid Disease: Yes (Hypo-) Ulcer: No Menopausal: Yes Past Surgical History Abdominal Surgery: No AICD: No Arteriovenous Shunt: No Cardiac Surgery: No Ear Surgery: No Endocrine Surgery: No Eye Surgery: Yes Genitourinary Surgery: No Gynecologic Surgery: No Insulin Pump: No Joint Replacement: No Neurologic Surgery: No Oral Surgery: No Pacemaker: No Thoracic Surgery: Yes (thoracentesis) Other Surgery: Yes Social History Alcohol Use: No (Rarely) Tobacco Use: No Substance Use: No Allergies-Medications (Allergen,Severity, Reaction): Coded Allergies: No Known Allergies (Verified , 09/15/16) Reported Meds & Prescriptions Reported Meds & Active Scripts Active Hydrocodone-Acetaminophen 5-325 mg Tab 1 Tab PO Q4H PRN Klor-Con 10 (Potassium Chloride) 10 Meq Tab 10 Meq PO DAILY Synthroid (Levothyroxine Sodium) 50 Mcg Tab 50 Mcg PO DAILY@06 Celexa (Citalopram Hydrobromide) 20 Mg Tab 20 Mg PO DAILY Lasix (Furosemide) 20 Mg Tab 20 Mg PO EVERY OTHER DAY Reported Aspirin 325 Mg Tab 325 Mg PO DAILY Albuterol Neb (Albuterol Sulfate) 2.5 Mg/0.5 Ml Neb 2.5 Mg NEB Q4HR NEB PRN Note: The Albuterol Sulfate Inhalation Solution is concentrated and must be diluted. Read complete instructions carefully before using. Lipitor (Atorvastatin Calcium) 10 Mg Tab 10 Mg PO DAILY Xanax (Alprazolam) 0.5 Mg Tab 0.5 Mg PO Q6H PRN Micardis (Telmisartan) 20 Mg Tab 80 Mg PO DAILY Review of Systems Except as stated in HPI: all other systems reviewed are Neg Physical Exam Narrative GENERAL: Well-appearing elderly female in no acute distress SKIN: Focused skin assessment warm/dry. HEAD: Normocephalic. EYES: No scleral icterus. No injection or drainage. ENT: Mucous membranes pink and moist. NECK: Supple CARDIOVASCULAR: Regular rate and rhythm. No murmur appreciated. RESPIRATORY: No accessory muscle use. Clear to auscultation. Breath sounds equal bilaterally. GASTROINTESTINAL: Abdomen soft, non-tender, nondistended. No CVA tenderness. MUSCULOSKELETAL: No midline tenderness to palpation of thoracic or lumbar spine. No reproducible tenderness to palpation along the paraspinous muscles, sacroiliac joint. 5 out of 5 strength and normal gait. NEUROLOGICAL: Awake and alert. Motor grossly within normal limits. Normal speech. PSYCHIATRIC: Appropriate mood and affect; insight and judgment normal. Data Data Last Documented VS Vital Signs Date Time Temp Pulse Resp B/P Pulse Ox O2 Delivery O2 Flow Rate FiO2 09/15/16 12:58 95 09/15/16 12:15 98.9 84 16 114/67 Orders Basic Metabolic Panel (Bmp) (09/15/16 12:22) Complete Blood Count With Diff (09/15/16 12:22) Urinalysis - C+S If Indicated (09/15/16 12:22) Iv Access Insert/Monitor (09/15/16 12:22) Ecg Monitoring (09/15/16 12:22) Oximetry (09/15/16 12:22) Sodium Chloride 0.9% Flush (Ns Flush) (09/15/16 12:30) Electrocardiogram (09/15/16 12:22) Cath For Specimen (09/15/16 12:34) Labs Laboratory Tests Test 09/15/16 09/15/16 12:45 12:54 White Blood Count 13.9 TH/MM3 Red Blood Count 4.00 MIL/MM3 Hemoglobin 11.6 GM/DL Hematocrit 34.2 % Mean Corpuscular Volume 85.4 FL Mean Corpuscular Hemoglobin 29.1 PG Mean Corpuscular Hemoglobin 34.0 % Concent Red Cell Distribution Width 13.2 % Platelet Count 193 TH/MM3 Mean Platelet Volume 9.1 FL Neutrophils (%) (Auto) 81.2 % Lymphocytes (%) (Auto) 10.1 % Monocytes (%) (Auto) 5.3 % Eosinophils (%) (Auto) 0.4 % Basophils (%) (Auto) 3.0 % Neutrophils # (Auto) 11.3 TH/MM3 Lymphocytes # (Auto) 1.4 TH/MM3 Monocytes # (Auto) 0.7 TH/MM3 Eosinophils # (Auto) 0.1 TH/MM3 Basophils # (Auto) 0.4 TH/MM3 CBC Comment AUTO DIFF Differential Total Cells 100 Counted Neutrophils % (Manual) 74 % Band Neutrophils % 9 % Lymphocytes % 14 % Monocytes % 3 % Neutrophils # (Manual) 11.5 TH/MM3 Differential Comment FINAL DIFF MANUAL Platelet Estimate NORMAL Platelet Morphology Comment NORMAL Red Cell Morphology Comment NORMAL Sodium Level 138 MEQ/L Potassium Level 3.9 MEQ/L Chloride Level 102 MEQ/L Carbon Dioxide Level 29.2 MEQ/L Anion Gap 7 MEQ/L Blood Urea Nitrogen 28 MG/DL Creatinine 1.50 MG/DL Estimat Glomerular Filtration 33 ML/MIN Rate Random Glucose 111 MG/DL Calcium Level 8.7 MG/DL Urine Collection Type CLEAN CATCH Urine Color STRAW Urine Turbidity SLIGHT Urine pH 5.5 Urine Specific [place] 1.011 Urine Protein NEG mg/dL Urine Glucose (UA) NEG mg/dL Urine Ketones NEG mg/dL Urine Occult Blood NEG Urine Nitrite NEG Urine Bilirubin NEG Urine Leukocyte Esterase NEG Urine RBC 0-3 /hpf Urine Squamous Epithelial 0-5 /hpf Cells Urine Amorphous Sediment FEW Urine Bacteria FEW /hpf Microscopic Urinalysis Comment CULT NOT INDICATED Urine Collection Time 1254 MDM Medical Decision Making Medical Screen Exam Complete: Yes Emergency Medical Condition: Yes Medical Record Reviewed: Yes Differential Diagnosis 89-year-old female here with complaint of low back pain, concentrated urine and nausea with chills. Differential includes UTI, cystitis versus pyelonephritis, viral syndrome, low back pain, dehydration, electrolyte abnormality, ACS, occult fracture. Narrative Course Patient placed on monitor, IV established and blood obtained. Twelve-lead EKG showed sinus rhythm with left bundle branch block, PACs. No notable ST abnormalities, and otherwise normal intervals. CBC, BMP, urinalysis notable for WBC 13.9, BUN 28/creatinine 1.50. This is slightly worse than her baseline renal function. Patient did recently have a thoracic spine compression fracture but her back pain is lower than this and off lateral. Patient and daughter were reassured. I do not patient warrants any imaging of the spine. Will be discharged home. Diagnosis Primary Impression: Low back pain Referrals: Primary Care Physician as needed Additional Instructions: Tylenol as needed for pain Med/Other Pt SpecificInfo: No Change to Meds Disposition: 01 DISCHARGE HOME Condition: Stable Yina Dorman MD September 15, 2016 12:33
[2016-09-15 12:51] LABS: AUTOMATED NEUTROPHIL # 11.3 TH/MM3 (1.8-7.7); BASOPHIL # 0.4 TH/MM3 (0-0.2); EOSINOPHIL # 0.1 TH/MM3 (0-0.4); EOSINOPHIL % 0.4 % (0.0-4.0); HEMATOCRIT 34.2 % (35.0-46.0); LYMPH % 10.1 % (9.0-44.0); LYMPHOCYTE # 1.4 TH/MM3 (1.0-4.8); MEAN CELL VOLUME 85.4 FL (80.0-100.0); MEAN CORPUSCULAR HEMOGLOBIN 29.1 PG (27.0-34.0); MONO % 5.3 % (0.0-8.0); NEUT % 81.2 % (16.0-70.0); PLATELET COUNT 193 TH/MM3 (150-450); RED CELL DISTRIBUTION WIDTH 13.2 % (11.6-17.2); WHITE BLOOD COUNT 13.9 TH/MM3 (4.0-11.0)
[2016-09-15 12:52] LABS: HEMO FLAGS AUTO DIFF
[2016-09-15 12:58] VITALS: O2SAT 95
[2016-09-15 12:59] LABS: POTASSIUM 3.9 MEQ/L (3.5-5.1)
[2016-09-15 13:00] LABS: BLOOD, URINE NEG (NEG); GLUCOSE,URINE NEG (NEG); KETONE, URINE NEG (NEG); NITRITE,URINE NEG (NEG); PH, URINE 5.5 (5.0-8.5)
[2016-09-15 13:02] LABS: BICARBONATE 29.2 MEQ/L (21.0-32.0)
[2016-09-15 13:07] LABS: BACTERIA, URINE FEW /hpf; COMMENT (UR) CULT NOT INDICATED; CULTURE IF INDICATED CULT NOT INDICATED; METHOD OF COLLECTION CLEAN CATCH; RBC, URINE 0-3 /hpf (0-3); SQUAMOUS EPITHELIAL CELL URINE 0-5 /hpf (0-5); URINE COLOR STRAW (YELLW/STRAW)
[2016-09-15 13:08] LABS: COMMENT2 (UR) MUCOUS PRESENT
[2016-09-15 13:12] LABS: BANDS 9 % (0-6); NEUTROPHIL # MANUAL DIFF 11.5 TH/MM3 (1.8-7.7); PLATELET ESTIMATE SMEAR NORMAL (NORMAL); PLATELET MORPHOLOGY NORMAL (NORMAL); POLYS (SEG NEUTROPHILS) 74 % (16-70); SCAN/DIFF FINAL DIFF MANUAL; WBC DIFF SAMPLE 100
--- NOTE | 2016-09-16 13:20 | EKG ---
Date Performed: 09/15/2016 Time Performed: 12:26:44 PTAGE: 89 years EKG: Sinus rhythm with PAC(s) Left bundle branch block Abnormal ECG Left bundle branch block is new since prior tracin g PREVIOUS TRACING : 07/11/2016 19.39 DOCTOR: Brenton Pacheco Interpretating Date/Time 09/16/2016 13:18:06
== END 2016-09-15 13:27 | disposition home or self-care (01) ==
LOC: PHED 12:13
DX: M54.5 Low back pain (principal); I11.0 Hypertensive heart disease with heart failure; I50.9 Heart failure, unspecified; Z79.82 Long term (current) use of aspirin; J44.9 Chronic obstructive pulmonary disease, unspecified; I44.7 Left bundle-branch block, unspecified
CPT/HCPCS: 80048; 81001; 85007; 85027; 93005

== ENCOUNTER 2016-12-08 20:09 | Emergency (ER) | payer MEDICARE ==
[~2016-12-08] VITALS: Ht 152.4 cm; Wt 49.0 kg
[~2016-12-08 20:09] MED LIST changes: -AMOX500C PO; -ASPI-110 PO; +ASPI325T PO
[2016-12-08 20:14] VITALS: BP 134/71; PULSE 92; RESP 20; TEMP 98.7; O2SAT 94
--- NOTE | 2016-12-08 20:39 | PD ---
HPI Chief Complaint: Fall Time Seen by Provider: 20:34 Travel History International Travel<30 days: No Contact w/Intl Traveler<30days: No Traveled to known affect area: No History of Present Illness HPI The patient is an 89-year-old female that Friday night did not use her walker and lost balance and fell. She hurt her left shoulder and chest wall and the daughter would like to know if she has a "cracked rib". The patient does have some slight pain in the left chest and some minimal pain in the left shoulder but she has been breathing/coughing fairly well and moving her left shoulder normally. The patient does have an underlying lung condition and is being considered by hospice for this. She does have a nebulizer at home which she uses albuterol nebs. She has not had any fever. The patient complains of a pain level of 7/10 which is sharp pain over the left lateral ribs. PFSH Past Medical History Hx Anticoagulant Therapy: Yes (162MG ASA) Arthritis: No Asthma: No Autoimmune Disease: No Anxiety: No Depression: Yes Heart Rhythm Problems: No Cancer: No Cardiovascular Problems: Yes (IVC FILTER; HTN; ) High Cholesterol: No Chemotherapy: No Chest Pain: No Congestive Heart Failure: Yes COPD: Yes Cerebrovascular Accident: No Dementia: Yes Diabetes: No Diminished Hearing: No Endocrine: Yes Gastrointestinal Disorders: No GERD: No Glaucoma: No Genitourinary: No Hepatitis: No Hiatal Hernia: No Hypertension: Yes Immune Disorder: No Implanted Vascular Access Dvce: No Kidney Stones: No Musculoskeletal: Yes Neurologic: No Psychiatric: Yes Reproductive: No Respiratory: Yes (COPD) Immunizations Current: Yes Migraines: No Pneumonia: Yes Radiation Therapy: No Renal Failure: No Seizures: No Sickle Cell Disease: No Sleep Apnea: No Thyroid Disease: Yes (Hypo-) Ulcer: No Menopausal: Yes Past Surgical History Abdominal Surgery: No AICD: No Arteriovenous Shunt: No Cardiac Surgery: No Ear Surgery: No Endocrine Surgery: No Eye Surgery: Yes Genitourinary Surgery: No Gynecologic Surgery: No Insulin Pump: No Joint Replacement: No Neurologic Surgery: No Oral Surgery: No Pacemaker: No Thoracic Surgery: Yes (thoracentesis) Other Surgery: Yes Social History Alcohol Use: No (Rarely) Tobacco Use: No Substance Use: No Allergies-Medications (Allergen,Severity, Reaction): Coded Allergies: No Known Allergies (Verified , 12/08/16) Reported Meds & Prescriptions Reported Meds & Active Scripts Active Hydrocodone-Acetaminophen 5-325 mg Tab 1 Tab PO Q4H PRN Klor-Con 10 (Potassium Chloride) 10 Meq Tab 10 Meq PO DAILY Synthroid (Levothyroxine Sodium) 50 Mcg Tab 50 Mcg PO DAILY@06 Celexa (Citalopram Hydrobromide) 20 Mg Tab 20 Mg PO DAILY Reported Tylenol (Acetaminophen) 325 Mg Tab 325 Mg PO Q4H PRN Furosemide 20 Mg Tab 20 Mg PO DAILY PRN Aspirin 325 Mg Tab 325 Mg PO DAILY Albuterol Neb (Albuterol Sulfate) 2.5 Mg/0.5 Ml Neb 2.5 Mg NEB Q4HR NEB PRN Note: The Albuterol Sulfate Inhalation Solution is concentrated and must be diluted. Read complete instructions carefully before using. Lipitor (Atorvastatin Calcium) 10 Mg Tab 10 Mg PO DAILY Xanax (Alprazolam) 0.5 Mg Tab 0.5 Mg PO Q6H PRN Review of Systems Except as stated in HPI: all other systems reviewed are Neg Physical Exam Narrative GENERAL: Well-nourished, alert and oriented, elderly patient in no respiratory distress. Her vital signs show heart rate of 92 and oximetry of 94% but are otherwise normal. 94% is fairly normal for this individual with her lung disease. SKIN: Focused skin assessment warm/dry. HEAD: Normocephalic. EYES: No scleral icterus. No injection or drainage. NECK: Supple, trachea midline. No JVD or lymphadenopathy. No posterior spinous process tenderness or deformity is present. CARDIOVASCULAR: Regular rate and rhythm without murmurs, gallops, or rubs. RESPIRATORY: Breath sounds equal bilaterally. No accessory muscle use. Scattered wheezes and rhonchi are heard in all lung conner. This is apparently normal for this patient. GASTROINTESTINAL: Abdomen soft, non-tender, nondistended. MUSCULOSKELETAL: No cyanosis, or edema. The left shoulder shows full range of motion with virtually no pain. There is a 2 cm bruise on the top of the left shoulder. No deformity is noted. BACK: Nontender without obvious deformity. No CVA tenderness. Data Data Last Documented VS Vital Signs Date Time Temp Pulse Resp B/P Pulse Ox O2 Delivery O2 Flow Rate FiO2 12/08/16 20:14 98.7 92 20 134/71 94 Orders Ribs, Uni (W/Exp Cxr-Min 3vw) (12/08/16 ) MDM Medical Decision Making Medical Screen Exam Complete: Yes Emergency Medical Condition: Yes Medical Record Reviewed: Yes Interpretation(s) The left rib views show no displaced fracture or pneumothorax. They do show chronic lung consolidation which is increasing. There is a chronic small left pleural effusion. Comparison x-rays were done in May and June of this year. Differential Diagnosis Rib fracture, pneumothorax, hemothorax, pneumonia, bronchitis, chronic lung disease Narrative Course The patient has chronic lung disease which is worsening. Discussing this with her daughter, this is apparently the expected course. She is to follow-up with her primary care physicians. She can take plain Tylenol for pain. Diagnosis Primary Impression: Chronic lung disease Ruled Out: Rib fracture Additional Instructions: At this time she appears to have chronic lung disease that is getting worse. This is apparently the expected course. There is no evidence of any rib fracture, pneumonia, pneumothorax or hemothorax. Follow-up with her primary care physicians. Med/Other Pt SpecificInfo: No Change to Meds Disposition: 01 DISCHARGE HOME Condition: Stable Dean Clay MD Dec 08, 2016 20:39
[2016-12-08] MEDS ORDERED: TYLE325T PO (20:43)
[2016-12-08] MEDS ORDERED: FURO20TA PO (20:43)
--- NOTE | 2016-12-08 21:09 | RADRPT ---
EXAM DATE/TIME: 12/08/2016 20:43 [facility] COMPARISON: CHEST PA & LAT, May 29, 2016, 10:37. CHEST SINGLE AP, July 11, 2016, 18:56. INDICATIONS : Trauma, fall. MEDICAL HISTORY : Hypertension. Chronic obstructive pulmonary disease. SURGICAL HISTORY : Thoracentesis. ENCOUNTER: Initial ACUITY: 1 day PAIN SCORE: 3/10 LOCATION: Left upper chest FINDINGS: 5 views of the left-sided ribs and chest. Alignment within normal limits. No displaced fracture ident ified. No evidence of pneumothorax. Mild chronic blunting of the left costophrenic sulcus suggesting chronic small pleural effusion. Chronic left lung confluent opacity centered in the perihilar region but involving the upper mid and lower lung zones. This opacity is slightly more prominent than on the comparison study of 07/11/2016. CONCLUSION: 1. Increasing severe chronic left lung consolidation. 2. Chronic small left pleural effusion. 3. No displaced fracture or pneumothorax seen. Ruel Payton MD on December 08, 2016 at 21:05 Board Certified Radiologist. This report was verified electronically.
== END 2016-12-08 21:50 | disposition home or self-care (01) ==
LOC: PHED 20:09
DX: J98.4 Other disorders of lung (principal); J90 Pleural effusion, not elsewhere classified; M25.512 Pain in left shoulder; I10 Essential (primary) hypertension; E07.9 Disorder of thyroid, unspecified; F03.90 Unspecified dementia, unspecified severity, without behavioral disturbance, psychotic disturbance, mood disturbance, and anxiety; Z79.82 Long term (current) use of aspirin; Z86.59 Personal history of other mental and behavioral disorders; Z86.79 Personal history of other diseases of the circulatory system; Z87.09 Personal history of other diseases of the respiratory system; Z87.39 Personal history of other diseases of the musculoskeletal system and connective tissue
CPT/HCPCS: 71101; 99283

== ENCOUNTER 2017-02-19 07:08 | Inpatient (IN) | payer MEDICARE ==
[2017-02-19] VITALS (12 sets, daily range): BP systolic 105–201; BP diastolic 73–103; PULSE 84–124; RESP 15–20; TEMP 97.3–99.3; O2SAT 89–96
[~2017-02-19] VITALS: Ht 157.5 cm; Wt 54.7 kg
[~2017-02-19 07:08] MED LIST changes: -FURO1TAB62 PO; +FURO20TA PO; -TELM20 PO; +TYLE325T PO
[2017-02-19] MEDS ORDERED: methylPREDNISolone SOD SUCC 125 MG/2 ML VIAL IV PUSH ONE ×2 (08:15→11:45)
[2017-02-19] MEDS ORDERED: SODIUM CHLORIDE 0.9% FLUSH 10 ML FLUSH IVF PRN (08:15)
--- NOTE | 2017-02-19 08:21 | PD ---
HPI Chief Complaint: Respiratory Symptoms Time Seen by Provider: 07:58 Travel History International Travel<30 days: No Contact w/Intl Traveler<30days: No Traveled to known affect area: No History of Present Illness HPI 89-year-old female complains of coughing congestion shortness of breath. Patient has history COPD and CHF. Patient states that she started having mild intermittent productive cough for the past 3 days. Patient denies any fever chills. Patient denies any headache. Patient denies abdominal pain. Patient denies any nausea vomiting diarrhea. Patient used her albuterol nebulizer treatment this morning at home. Patient was given prescription for Cefdinir 300 mg twice a day as needed for exacerbation of COPD coughing congestion. Patient has not started on the antibiotic yet. Patient's on prednisone 10 mg daily. Last dose of prednisone was this morning. Patient takes Micardis as needed for elevated blood pressure. PFSH Past Medical History Hx Anticoagulant Therapy: Yes (BABY ASA ) Arthritis: No Asthma: No Autoimmune Disease: No Anxiety: No Depression: Yes Heart Rhythm Problems: No Cancer: No Cardiovascular Problems: Yes (IVC FILTER; HTN; ) High Cholesterol: No Chemotherapy: No Chest Pain: No Congestive Heart Failure: Yes COPD: Yes Cerebrovascular Accident: No Dementia: Yes Diabetes: No Diminished Hearing: No Endocrine: Yes Gastrointestinal Disorders: No GERD: No Glaucoma: No Genitourinary: No Hepatitis: No Hiatal Hernia: No Hypertension: Yes Immune Disorder: No Implanted Vascular Access Dvce: No Kidney Stones: No Musculoskeletal: Yes Neurologic: No Psychiatric: Yes Reproductive: No Respiratory: Yes (COPD) Immunizations Current: Yes Migraines: No Pneumonia: Yes Radiation Therapy: No Renal Failure: No Seizures: No Sickle Cell Disease: No Sleep Apnea: No Thyroid Disease: Yes (Hypo-) Ulcer: No Menopausal: Yes Past Surgical History Abdominal Surgery: No AICD: No Arteriovenous Shunt: No Cardiac Surgery: No Ear Surgery: No Endocrine Surgery: No Eye Surgery: Yes Genitourinary Surgery: No Gynecologic Surgery: No Insulin Pump: No Joint Replacement: No Neurologic Surgery: No Oral Surgery: No Pacemaker: No Thoracic Surgery: Yes (thoracentesis) Other Surgery: Yes Social History Alcohol Use: No (Rarely) Tobacco Use: No Substance Use: No Allergies-Medications (Allergen,Severity, Reaction): Coded Allergies: No Known Allergies (Verified , 12/08/16) Reported Meds & Prescriptions Reported Meds & Active Scripts Active Klor-Con 10 (Potassium Chloride) 10 Meq Tab 10 Meq PO DAILY Synthroid (Levothyroxine Sodium) 50 Mcg Tab 50 Mcg PO DAILY@06 Celexa (Citalopram Hydrobromide) 20 Mg Tab 20 Mg PO DAILY Reported Tramadol (Tramadol HCl) 50 Mg Tab 50 Mg PO Q8H PRN Prednisone 10 Mg Tab 10 Mg PO DAILY Telmisartan-Hydrochlorothiazide 80-12.5 Mg Tab 0.5 Tab PO DAILY PRN Furosemide 20 Mg Tab 20 Mg PO DAILY Aspirin 325 Mg Tab 325 Mg PO DAILY Albuterol Neb (Albuterol Sulfate) 2.5 Mg/0.5 Ml Neb 2.5 Mg NEB Q4HR NEB PRN Note: The Albuterol Sulfate Inhalation Solution is concentrated and must be diluted. Read complete instructions carefully before using. Lipitor (Atorvastatin Calcium) 10 Mg Tab 10 Mg PO DAILY Xanax (Alprazolam) 0.5 Mg Tab 0.5 Mg PO Q6H PRN Review of Systems General / Constitutional: No: Fever Eyes: No: Visual changes HENT: No: Headaches Cardiovascular: No: Chest Pain or Discomfort Respiratory: Positive: Cough, Shortness of Breath Gastrointestinal: No: Abdominal Pain Genitourinary: No: Dysuria Musculoskeletal: No: Pain Skin: No Rash Neurologic: No: Weakness Psychiatric: No: Depression Endocrine: No: Polydipsia Hematologic/Lymphatic: No: Easy Bruising Physical Exam Narrative GENERAL: Well-nourished, well-developed patient. SKIN: Focused skin assessment warm/dry. HEAD: Normocephalic. EYES: No scleral icterus. No injection or drainage. NECK: Supple, trachea midline. No JVD or lymphadenopathy. CARDIOVASCULAR: Regular rate and rhythm without murmurs, gallops, or rubs. RESPIRATORY: Breath sounds equal bilaterally. No accessory muscle use. Patient has mild to moderate expiratory wheezes bilaterally. Moderate rhonchi at the bases. GASTROINTESTINAL: Abdomen soft, non-tender, nondistended. MUSCULOSKELETAL: No cyanosis, or edema. BACK: Nontender without obvious deformity. No CVA tenderness. Neurologic exam normal. Data Data Last Documented VS Vital Signs Date Time Temp Pulse Resp B/P (MAP) Pulse Ox O2 Delivery O2 Flow Rate FiO2 02/19/17 09:38 164/94 (117) 02/19/17 09:27 106 16 89 Room Air 02/19/17 07:17 99.3 Orders Orders Complete Blood Count With Diff (02/19/17 08:08) Basic Metabolic Panel (Bmp) (02/19/17 08:08) B-Type Natriuretic Peptide (02/19/17 08:08) Influenzae A/B Antigen (02/19/17 08:08) Iv Access Insert/Monitor (02/19/17 08:08) Ecg Monitoring (02/19/17 08:08) Oximetry (02/19/17 08:08) Chest, Single Ap (02/19/17 08:08) Sodium Chloride 0.9% Flush (Ns Flush) (02/19/17 08:15) Methylprednisolone So Succ Inj (Solumedr (02/19/17 08:15) Albuterol-Ipratropium Neb (Duoneb Neb) (02/19/17 08:15) Furosemide Inj (Lasix Inj) (02/19/17 10:45) Admit Order (Ed Use Only) (02/19/17 10:47) Labs Laboratory Tests Test 02/19/17 08:32 White Blood Count 11.1 TH/MM3 Red Blood Count 3.87 MIL/MM3 Hemoglobin 11.1 GM/DL Hematocrit 33.1 % Mean Corpuscular Volume 85.5 FL Mean Corpuscular Hemoglobin 28.6 PG Mean Corpuscular Hemoglobin Concent 33.5 % Red Cell Distribution Width 16.4 % Platelet Count 243 TH/MM3 Mean Platelet Volume 7.8 FL Neutrophils (%) (Auto) 73.5 % Lymphocytes (%) (Auto) 14.0 % Monocytes (%) (Auto) 7.2 % Eosinophils (%) (Auto) 1.4 % Basophils (%) (Auto) 3.9 % Neutrophils # (Auto) 8.1 TH/MM3 Lymphocytes # (Auto) 1.6 TH/MM3 Monocytes # (Auto) 0.8 TH/MM3 Eosinophils # (Auto) 0.2 TH/MM3 Basophils # (Auto) 0.4 TH/MM3 CBC Comment DIFF FINAL Differential Comment Blood Urea Nitrogen 23 MG/DL Creatinine 1.10 MG/DL Random Glucose 89 MG/DL Calcium Level 8.4 MG/DL Sodium Level 140 MEQ/L Potassium Level 4.1 MEQ/L Chloride Level 102 MEQ/L Carbon Dioxide Level 29.8 MEQ/L Anion Gap 8 MEQ/L Estimat Glomerular Filtration Rate 47 ML/MIN B-Type Natriuretic Peptide 994 PG/ML MDM Medical Decision Making Medical Screen Exam Complete: Yes Emergency Medical Condition: Yes Interpretation(s) Last Impressions Chest X-Ray 02/19/17 0808 Signed Impressions: Service Date/Time: Sunday, February 19, 2017 08:14 - CONCLUSION: Radiographic pattern most suggestive of pulmonary edema. Rm Connors Jr., MD 10:36 AM. CBC WBC 11.1. Hemoglobin 11.1 hematocrit 33.1. 73 neutrophil. BUN 23. Creatinine 1.1. BNP 994. Differential Diagnosis Differential diagnosis including acute exacerbation of COPD, CHF, bronchitis, pneumonia, PE, pneumothorax. Narrative Course 89-year-old female complains of coughing congestion and shortness of breath. History of COPD and CHF. Albuterol with Atrovent unit dose treatment 2. Solu- Medrol 60 mg IV. Lasix 40 mg IV. Rocephin 1 g IV. Zithromax 500 mg IV. Diagnosis Primary Impression: Acute exacerbation of CHF (congestive heart failure) Qualified Codes: I50.9 - Heart failure, unspecified Additional Impression: COPD with acute exacerbation Admitting Information Admitting Physician Requests: Admit William Campos MD Feb 19, 2017 08:21
[2017-02-19] MEDS ORDERED: TELM1TAB4 PO (08:41)
[2017-02-19 08:43] LABS: AUTOMATED NEUTROPHIL # 8.1 TH/MM3 (1.8-7.7); BASOPHIL # 0.4 TH/MM3 (0-0.2); BASOPHIL % 3.9 % (0.0-2.0); EOSINOPHIL # 0.2 TH/MM3 (0-0.4); EOSINOPHIL % 1.4 % (0.0-4.0); HEMATOCRIT 33.1 % (35.0-46.0); HEMO FLAGS DIFF FINAL; LYMPHOCYTE # 1.6 TH/MM3 (1.0-4.8); MEAN CELL VOLUME 85.5 FL (80.0-100.0); MEAN CORPUSCULAR HEMOGLOBIN 28.6 PG (27.0-34.0); MEAN CORPUSCULAR HGB CONC 33.5 % (32.0-36.0); MONO % 7.2 % (0.0-8.0); NEUT % 73.5 % (16.0-70.0); PLATELET COUNT 243 TH/MM3 (150-450); RED BLOOD COUNT 3.87 MIL/MM3 (4.00-5.30); RED CELL DISTRIBUTION WIDTH 16.4 % (11.6-17.2); WHITE BLOOD COUNT 11.1 TH/MM3 (4.0-11.0)
[2017-02-19] MEDS: RESP: ALBUTEROL 2.5 MG/IPRATROPIUM 0.5 MG NEB (SCH) INH ×2 (08:43→08:44)
[2017-02-19] MEDS ORDERED: TRAM50TA PO (08:45)
[2017-02-19] MEDS ORDERED: PRED10 PO (08:45)
--- NOTE | 2017-02-19 08:49 | RADRPT ---
EXAM DATE/TIME: 02/19/2017 08:14 [facility] COMPARISON: CHEST SINGLE AP, July 11, 2016, 18:56. INDICATIONS : Short of breath, congestion, wheezing. MEDICAL HISTORY : Hypertension. Chronic obstructive pulmonary disease. Hypothyroidism.Dementia. Congestive heart failur e. Anticoagulant therapy. Osteoporosis. Pneumonia. Blood transfusion. SURGICAL HISTORY : Thoracentesis. Left hip repair. ENCOUNTER: Initial ACUITY: 2 days PAIN SCORE: 0/10 LOCATION: chest FINDINGS: A single portable frontal view the chest shows cardiomegaly. Pulmonary vascular engorgement. Tiny joey ateral pleural effusions. Consolidation involving the left lung in a diffuse fashion but more pronoun aldo within the left upper lobe peripherally. Interstitial prominence in the right lung. The degenerat bravo spine. CONCLUSION: Radiographic pattern most suggestive of pulmonary edema. Rm Connors Jr., MD on February 19, 2017 at 8:23 Board Certified Radiologist. This report was verified electronically.
[2017-02-19 08:55] LABS: BICARBONATE 29.8 MEQ/L (21.0-32.0)
[2017-02-19 08:57] LABS: POTASSIUM 4.1 MEQ/L (3.5-5.1)
[2017-02-19] MEDS ORDERED: FUROSEMIDE 40 MG/4 ML VIAL IV PUSH ONE (10:45)
[2017-02-19] MEDS ORDERED: AZITHROMYCIN INJ 500 MG in SODIUM CHLOR 0.9% 250 ML INJ 250 ML IV ONE (11:00)
[2017-02-19] MEDS ORDERED: cefTRIAXone INJ 1,000 MG in SODIUM CHLORIDE 0.9% INJ 100 ML IV ONE (11:00)
[2017-02-19] MEDS ORDERED: SODIUM CHLORIDE 0.9% FLUSH 10 ML FLUSH IV FLUSH PRN (11:30)
--- NOTE | 2017-02-19 11:38 | HHI.HP ---
[facility] Service [facility] Primary Care Physician Senthil Fierro M.D. Admission Diagnosis acute exacerbation of COPD. Acute exacerbation CHF. Diagnoses: Chief Complaint: Shortness of breath Travel History International Travel<30 Days: No Contact w/Intl Traveler <30 Da: No Traveled to Known Affected Are: No History of Present Illness 89-year-old white female being admitted for COPD exacerbation. Patient was in her usual state of health until about 2 days ago when her shortness of breath became worse. Daughter is the main historian and says that she has had some overall worsening shortness of breath for about 2-3 weeks. Almost about a month ago she had taken an antibiotic course and was started on steroids, namely 10 mg of prednisone, per the daughter. Says that the patient's symptoms did improve at that time transiently; unfortunately began to worsen 2 days ago. Denies any runny nose or increased productive coughing. Daughter does report that she increase her nebulizer treatments to about 2-3 times a day with just transient relief and unfortunately her symptoms would occur prompting them to come to the emergency room. She states that the patient has had intermittent lower extreme edema that responds to leg elevation but this is not any worse than baseline. Daughter denies the patient ever requiring home oxygen in the past. Review of Systems Except as stated in HPI: all other systems reviewed are Neg Past Family Social History Past Medical History COPD, CHF Past Surgical History Left hip fracture repair ? IVC filter Allergies: Coded Allergies: No Known Allergies (Verified , 12/08/16) Family History Hypertension Social History Lived with smokers, substantial secondhand smoke exposure. Currently lives with her daughter who arranges aids for her and manages her medications Physical Exam Vital Signs Vital Signs Date Time Temp Pulse Resp B/P (MAP) Pulse Ox O2 Delivery O2 Flow Rate FiO2 02/19/17 11:29 124 15 166/96 (119) 96 02/19/17 09:38 164/94 (117) 02/19/17 09:27 106 16 () 89 Room Air 02/19/17 08:15 160/103 (122) 02/19/17 08:15 95 Room Air 02/19/17 08:05 106 18 189/96 (127) 96 02/19/17 07:17 99.3 102 18 201/95 (130) 93 Room Air Physical Exam VS: Afebrile GENERAL: Mild to moderate distress secondary to tachypnea SKIN: Warm and dry. EYES: No scleral icterus. No injection or drainage. ENT: No nasal bleeding or discharge. Mucous membranes pink and moist. CARDIOVASCULAR: Regular rate and rhythm. no murmurs RESPIRATORY: Mild to moderately labored breathing with audible wheezing without stethoscope, no crackles heard otherwise on auscultation GASTROINTESTINAL: Abdomen soft, non-tender, nondistended. Hepatic and splenic margins not palpable. Extremities: No clubbing, cyanosis, or edema. No obvious deformities. MUSCULOSKELETAL: Extremities without clubbing, cyanosis. Mild edema noted of bilateral lower extremities that is nonpitting. No obvious deformities. grossly intact ROM with 5/5 strength in upper and lower extremities proximally NEUROLOGICAL: Awake and alert. No obvious cranial nerve deficits. No facial droop nor slurred speech noted. PSYCHIATRIC: Appropriate mood and affect; insight and judgment normal. Laboratory Laboratory Tests Test 02/19/17 08:32 White Blood Count 11.1 Red Blood Count 3.87 Hemoglobin 11.1 Hematocrit 33.1 Mean Corpuscular Volume 85.5 Mean Corpuscular Hemoglobin 28.6 Mean Corpuscular Hemoglobin Concent 33.5 Red Cell Distribution Width 16.4 Platelet Count 243 Mean Platelet Volume 7.8 Neutrophils (%) (Auto) 73.5 Lymphocytes (%) (Auto) 14.0 Monocytes (%) (Auto) 7.2 Eosinophils (%) (Auto) 1.4 Basophils (%) (Auto) 3.9 Neutrophils # (Auto) 8.1 Lymphocytes # (Auto) 1.6 Monocytes # (Auto) 0.8 Eosinophils # (Auto) 0.2 Basophils # (Auto) 0.4 CBC Comment DIFF FINAL Differential Comment Blood Urea Nitrogen 23 Creatinine 1.10 Random Glucose 89 Calcium Level 8.4 Sodium Level 140 Potassium Level 4.1 Chloride Level 102 Carbon Dioxide Level 29.8 Anion Gap 8 Estimat Glomerular Filtration Rate 47 B-Type Natriuretic Peptide 994 Date/Time Source Procedure Growth Status 02/19/17 08:34 Nasal Washing Influenza Types A,B Antigen (NATALYA) - Final NEGATIVE FOR FLU A AND B ANTIGEN.... Complete Result Diagram: 02/19/1783102/19/17831 Caprini VTE Risk Assessment Caprini VTE Risk Assessment: Mod/High Risk (score >= 2) Caprini Risk Assessment Model Point Value = 1 Point Value = 2 Point Value = 3 Point Value = 5 Age 41-60 Minor surgery BMI > 25 kg/m2 Swollen legs Varicose veins or History of unexplained or recurrent spontaneous Oral contraceptives or hormone replacement Sepsis (< 1 month) Serious lung disease, including pneumonia (< 1 month) Abnormal pulmonary function Acute myocardial infarction Congestive heart failure (< 1 month) History of inflammatory bowel disease Medical patient at bed rest Age 61-74 Arthroscopic surgery Major open surgery (> 45 min) Laparoscopic surgery (> 45 min) Malignancy Confined to bed (> 72 hours) Immobilizing plaster cast Central venous access Age >= 75 History of VTE Family history of VTE Factor V Leiden Prothrombin [id number] Lupus anticoagulant Anticardiolipin antibodies Elevated serum homocysteine Heparin-induced thrombocytopenia Other congenital or acquired thrombophilia Stroke (< 1 month) Elective arthroplasty Hip, pelvis, or leg fracture Acute spinal cord injury (< 1 month) Prophylaxis Regimen Total Risk Factor Score Risk Level Prophylaxis Regimen 0-1 Low Early ambulation 2 Moderate Order ONE of the following: *Sequential Compression Device (SCD) *Heparin 5000 units SQ BID 3-4 Higher Order ONE of the following medications: *Heparin 5000 units SQ TID *Enoxaparin/Lovenox 40 mg SQ daily (WT < 150 kg, CrCl > 30 mL/min) *Enoxaparin/Lovenox 30 mg SQ daily (WT < 150 kg, CrCl > 10-29 mL/min) *Enoxaparin/Lovenox 30 mg SQ BID (WT < 150 kg, CrCl > 30 mL/min) AND/OR *Sequential Compression Device (SCD) 5 or more Highest Order ONE of the following medications: *Heparin 5000 units SQ TID (Preferred with Epidurals) *Enoxaparin/Lovenox 40 mg SQ daily (WT < 150 kg, CrCl > 30 mL/min) *Enoxaparin/Lovenox 30 mg SQ daily (WT < 150 kg, CrCl > 10-29 mL/min) *Enoxaparin/Lovenox 30 mg SQ BID (WT < 150 kg, CrCl > 30 mL/min) AND *Sequential Compression Device (SCD) Assessment and Plan Assessment and Plan 89-year-old white female being admitted for shortness of breath Shortness of breath - secondary to COPD exacerbation as well as possible worsening acute systolic CHF - Continue with IV steroids for 24 hours and transitioned to orals once noting clinical improvement - Duo nebs and albuterol Hypoxia - Likely secondary to COPD exacerbation + pulmonary edema from chronic CHF - Treat as above, wean oxygen as tolerated possible acute systolic CHF - I independently reviewed the chest x-ray which shows pulmonary edema, left greater than right, unable to rule out an effusion on the left base . Last echocardiogram performed in 2015 shows an EF of 45-50%, I suspect that this may have gotten worse leading to a suspected diagnosis of acute systolic CHF this time upon admission - BMP in a.m. - Lasix IV twice a day for now - continue home arb+hctz - will plan to obtain echo Hypothyroidism - Continue home levothyroxine Anxiety - Continue home benzodiazepine and citalopram Lovenox for DVT prophylaxis Physician Certification 2 Midnight Certification Type: Admission for Inpatient Services Order for Inpatient Services The services are ordered in accordance with Medicare regulations or non- Medicare payer requirements, as applicable. In the case of services not specified as inpatient-only, they are appropriately provided as inpatient services in accordance with the 2-midnight benchmark. Estimated LOS (days): 2 2 days is the estimated time the patient will need to remain in the hospital, assuming treatment plan goals are met and no additional complications. Post-Hospital Plan: Home Mathieu Mendoza MD Feb 19, 2017 11:38
[2017-02-19] MEDS ORDERED: ALPRAZolam 0.5 MG TAB PO PRN (11:45)
[2017-02-19] MEDS: CITALOPRAM HYDROBROMIDE 20 MG TAB PO SCH (11:45)
[2017-02-19] MEDS ORDERED: RESP: ALBUTEROL 2.5 MG/IPRATROPIUM 0.5 MG NEB (SCH) NEB (11:45)
[2017-02-19] MEDS ORDERED: traMADol HCL 50 MG TAB PO PRN (11:45)
[2017-02-19] MEDS ORDERED: TELMISARTAN HCTZ PO PRN (12:15)
[2017-02-19] MEDS: RESP: ALBUTEROL 2.5 MG/IPRATROPIUM 0.5 MG NEB (SCH) NEB ×2 (14:58→21:44)
[2017-02-19] MEDS: FUROSEMIDE 40 MG/4 ML VIAL IV PUSH SCH (18:00)
[2017-02-19] MEDS: methylPREDNISolone SOD SUCC 125 MG/2 ML VIAL IV PUSH SCH (21:10)
[2017-02-19] MEDS: SODIUM CHLORIDE 0.9% FLUSH 10 ML FLUSH IV FLUSH SCH (21:16)
[2017-02-20] VITALS (8 sets, daily range): BP systolic 133–161; BP diastolic 63–91; PULSE 75–121; RESP 18–20; TEMP 96.8–98; O2SAT 92–98
[2017-02-20] MEDS: methylPREDNISolone SOD SUCC 125 MG/2 ML VIAL IV PUSH SCH ×3 (04:07→19:50)
[2017-02-20] MEDS: LEVOTHYROXINE SODIUM 50 MCG TAB PO SCH (05:17)
[2017-02-20 07:27] LABS: POTASSIUM 3.5 MEQ/L (3.5-5.1)
[2017-02-20] MEDS: RESP: ALBUTEROL 2.5 MG/IPRATROPIUM 0.5 MG NEB (SCH) NEB ×3 (07:27→20:21)
[2017-02-20 07:31] LABS: BICARBONATE 31.3 MEQ/L (21.0-32.0)
[2017-02-20] MEDS ORDERED: FUROSEMIDE 20 MG TAB PO SCH (09:00)
[2017-02-20] MEDS: FUROSEMIDE 40 MG/4 ML VIAL IV PUSH SCH (10:01)
[2017-02-20] MEDS: SODIUM CHLORIDE 0.9% FLUSH 10 ML FLUSH IV FLUSH SCH ×2 (10:01→19:51)
[2017-02-20] MEDS: POTASSIUM CHLORIDE 10 MEQ CONTROLLED RELEASE TAB PO SCH (10:02)
[2017-02-20] MEDS: ATORVASTATIN 10 MG TAB PO SCH (10:02)
[2017-02-20] MEDS: CITALOPRAM HYDROBROMIDE 20 MG TAB PO SCH (10:02)
--- NOTE | 2017-02-20 12:02 | ECHRPT ---
Indication: Cardiomyopathy, unspecified CONCLUSIONS Normal left ventricular size. Wall thickness is normal. The left ventricular systolic function is lo w normal with estimated ejection fraction of 50%. No definite regional wall motion abnormalities are identif ied. Mild mitral annular calcification is present. Mild to moderate mitral valve regurgitation. There is moderate tricuspid regurgitation. The estimated systolic pulmonary pressure is 64 mm Hg. Moderate to severe aortic valve stenosis. Moderate thickening of the aortic valve leaflets. Mild to moderate aortic valve regurgitation. Aortic valve area is 0.6 cm. Aortic valve mean gradient is 41 mmHg. BP: / HR: Rhythm: MEASUREMENTS (Male / Female) Normal Values Technical Quality:Good 2D ECHO LV Diastolic Diameter PLAX 4.3 cm 4.2 - 5.9 / 3.9 - 5.3 cm LV Systolic Diameter PLAX 3.5 cm IVS Diastolic Thickness 1.1 cm 0.6 - 1.0 / 0.6 - 0.9 cm LVPW Diastolic Thickness 0.9 cm 0.6 - 1.0 / 0.6 - 0.9 cm LV Relative Wall Thickness 0.5 RV Internal Dim ED PLAX 2.0 cm LVOT Diameter 1.9 cm LA Systolic Diameter LX 3.6 cm 3.0 - 4.0 / 2.7 - 3.8 cm DOPPLER AV Peak Velocity 420.0 cm/s AV Peak Gradient 70.6 mmHg AV Mean Gradient 41.0 mmHg AV Velocity Time Integral 100.0 cm AI Peak Velocity 411.0 cm/s AI Peak Gradient 67.6 mmHg AI Pressure Half Time 563.0 ms LVOT Peak Velocity 95.2 cm/s LVOT Peak Gradient 3.6 mmHg LVOT Velocity Time Integral 21.3 cm AV Area Cont Eq vti 0.6 cm AV Area Cont Eq pk 0.6 cm MV Peak Velocity 223.0 cm/s MV Peak Gradient 19.9 mmHg MV Mean Velocity 96.0 cm/s MV Mean Gradient 6.0 mmHg Mitral E Point Velocity 168.0 cm/s TR Peak Velocity 369.0 cm/s TR Peak Gradient 54.5 mmHg Right Atrial Pressure 10.0 mmHg Pulmonary Artery Systolic Pressu 64.5 mmHg Right Ventricular Systolic Press 64.5 mmHg FINDINGS LEFT VENTRICLE Normal left ventricular size. Wall thickness is normal. The left ventricular systolic function is lo w normal with estimated ejection fraction of 50%. No definite regional wall motion abnormalities are identif ied. RIGHT VENTRICLE Normal right ventricular size and systolic function. LEFT ATRIUM The left atrial size is normal. RIGHT ATRIUM The right atrial size is normal. ATRIAL SEPTUM Normal atrial septal thickness without atrial level shunting by limited color doppler interrogation. AORTA The aortic root and proximal ascending aorta are normal in size on limited imaging. MITRAL VALVE Mild mitral annular calcification is present. Mild to moderate mitral valve regurgitation. AORTIC VALVE Moderate to severe aortic valve stenosis. Moderate thickening of the aortic valve leaflets. Mild to moderate aortic valve regurgitation. Aortic valve area is 0.6 cm. Aortic valve mean gradient is 41 mmHg. TRICUSPID VALVE There is moderate tricuspid regurgitation. The estimated systolic pulmonary pressure is 64 mm Hg. PULMONARY VALVE Mild pulmonary valve regurgitation. VESSELS The inferior vena cava is normal in size. PERICARDIUM No pericardial effusion. Albert Valerio MD (Electronically Signed) Final Date:20 February 2017 12:01
--- NOTE | 2017-02-20 13:05 | HHI.PR ---
Subjective Remarks Nursing reports that the patient is breathing better since last night, no deterioration since admission. Patient herself says she is feeling much better since yesterday. Says that her breathing is better, states that she thinks she might need another night to improve further enough to feel comfortable go home. Objective Vital Signs Date Time Temp Pulse Resp B/P (MAP) Pulse Ox O2 Delivery O2 Flow Rate FiO2 02/20/17 12:00 97.4 109 20 133/79 (97) 93 02/20/17 08:00 97.4 101 18 133/84 (100) 93 02/20/17 07:28 92 21 02/20/17 04:00 96.8 75 20 161/90 (113) 94 02/20/17 00:00 97.3 93 20 148/81 (103) 93 02/19/17 21:45 92 21 02/19/17 20:00 97.4 123 20 105/73 (84) 96 02/19/17 20:00 100 02/19/17 17:48 84 02/19/17 16:50 97.3 109 20 135/83 (100) 95 02/19/17 16:37 02/19/17 16:25 96 Nasal Cannula 2.00 02/19/17 15:14 87 15 131/83 (99) 96 Nasal Cannula 2.00 I/O 02/19/17 02/19/17 02/19/17 02/20/17 02/20/17 02/20/17 07:00 15:00 23:00 07:00 15:00 23:00 Intake Total 350 ml 0 ml 60 ml Output Total 820 ml 0 ml Balance -470 ml 0 ml 60 ml Intake Oral 0 ml 60 ml IV Total 350 ml 0 ml Output Urine Total 820 ml 0 ml # Voids 4 1 1 # Bowel Movements 1 0 0 Result Diagram: 02/19/17 0832 02/20/17 0625 Objective Remarks No acute distress Unlabored breathing, mild to moderate expiratory wheezing diffusely, no cyanosis A/P Assessment and Plan 89-year-old white female being admitted for shortness of breath Shortness of breath - Improved since admission, secondary to COPD exacerbation as well as possible worsening CHF - Continue with IV steroids until AM and transition orals kendrick - Duo nebs and albuterol Hypoxia - Likely secondary to COPD exacerbation + pulmonary edema from chronic CHF - Treat as above, wean oxygen as tolerated possible CHF - echo done today shows preserved EF of 50% w/ no systolic dysfunction; mod to severe aortic stenosis is noted - IV or oral Lasix once daily for now - continue home arb+hctz Hypothyroidism - Continue home levothyroxine Anxiety - Continue home benzodiazepine and citalopram Lovenox for DVT prophylaxis DC anticipated on 02/21 Mathieu Mendoza MD Feb 20, 2017 13:05
[2017-02-20] MEDS: ENOXAPARIN SODIUM 30 MG/0.3 ML SYRINGE SQ SCH (14:19)
[2017-02-20] MEDS ORDERED: METOPROLOL TARTRATE 25 MG TAB PO ONE (23:45)
[2017-02-21] VITALS (8 sets, daily range): BP systolic 126–166; BP diastolic 68–97; PULSE 66–119; RESP 19–20; TEMP 96.4–97.6; O2SAT 92–98
[2017-02-21] MEDS: RESP: ALBUTEROL 1.25 MG/3 ML NEB (PRN) NEB ×2 (04:46→17:27)
[2017-02-21] MEDS: LEVOTHYROXINE SODIUM 50 MCG TAB PO SCH (05:23)
[2017-02-21] MEDS: methylPREDNISolone SOD SUCC 125 MG/2 ML VIAL IV PUSH SCH ×2 (05:23→08:48)
[2017-02-21] MEDS: RESP: ALBUTEROL 2.5 MG/IPRATROPIUM 0.5 MG NEB (SCH) NEB ×2 (07:28→14:43)
[2017-02-21] MEDS: ATORVASTATIN 10 MG TAB PO SCH (08:48)
[2017-02-21] MEDS: POTASSIUM CHLORIDE 10 MEQ CONTROLLED RELEASE TAB PO SCH (08:48)
[2017-02-21] MEDS: CITALOPRAM HYDROBROMIDE 20 MG TAB PO SCH (08:48)
[2017-02-21] MEDS: SODIUM CHLORIDE 0.9% FLUSH 10 ML FLUSH IV FLUSH SCH (08:48)
[2017-02-21 10:16] LABS: POTASSIUM 3.4 MEQ/L (3.5-5.1)
[2017-02-21 10:19] LABS: BICARBONATE 32.1 MEQ/L (21.0-32.0); MAGNESIUM 2.6 MG/DL (1.5-2.5)
[2017-02-21] MEDS: ENOXAPARIN SODIUM 30 MG/0.3 ML SYRINGE SQ SCH (14:08)
--- NOTE | 2017-02-21 15:49 | RADRPT ---
EXAM DATE/TIME: 02/21/2017 15:09 [facility] COMPARISON: CHEST SINGLE AP, February 19, 2017, 8:14. CHEST PA & LAT, May 29, 2016, 10:37. INDICATIONS : Short of breath. MEDICAL HISTORY : Hypertension. Chronic obstructive pulmonary disease.Hypothyroidism.Dementia. Congestive heart failure . Anticoagulant therapy. Osteoporosis. Pneumonia. Blood transfusion. SURGICAL HISTORY : Thoracentesis. Left hip repair. ENCOUNTER: Subsequent ACUITY: 3 days PAIN SCORE: 0/10 LOCATION: chest FINDINGS: There is fullness and indistinctness of the central bronchopulmonary markings with partial consolidat ion of the bilaterally which is very similar to prior chest x-ray 02/19/17. The heart is enlarged. Both hemidiaphragms remain discernible. CONCLUSION: Stable severity pulmonary edema. Rm Bullard MD on February 21, 2017 at 15:33 Board Certified Radiologist. This report was verified electronically.
--- NOTE | 2017-02-21 16:49 | HHI.DCPOC ---
Discharge Care Plan Diagnosis: (1) Aortic stenosis (2) Chronic lung disease (3) COPD with acute exacerbation (4) SOB (shortness of breath) Goals to Promote Your Health * To prevent worsening of your condition and complications * To maintain your health at the optimal level Directions to Meet Your Goals Take your medications as prescribed Follow your dietary instruction Follow activity as directed Keep your appointments as scheduled Take your immunizations and boosters as scheduled If your symptoms worsen call your PCP, if no PCP go to Urgent Care Center or Emergency Room Smoking is Dangerous to Your Health. Avoid second hand smoke Call the 24-hour hour crisis hotline for domestic abuse at Mathieu Mendoza MD Feb 21, 2017 16:49
[2017-02-21] MEDS ORDERED: ASPI81TA11 PO (16:50)
[2017-02-21] MEDS ORDERED: PRED10 PO (16:52)
--- NOTE | 2017-02-21 16:55 | HHI.DS ---
Discharge Summary Admission Date Feb 19, 2017 at 11:16 Discharge Date: Feb 21, 2017 Admitting Diagnosis acute exacerbation of COPD. Acute exacerbation CHF. (1) Chronic lung disease ICD Code: J98.4 - Other disorders of lung Status: Acute (2) SOB (shortness of breath) ICD Code: R06.02 - Shortness of breath Status: Acute (3) COPD with acute exacerbation ICD Code: J44.1 - Chronic obstructive pulmonary disease with (acute) exacerbation Status: Acute (4) Aortic stenosis ICD Code: I35.0 - Nonrheumatic aortic (valve) stenosis Procedures none Brief History - From Admission 89-year-old white female being admitted for COPD exacerbation. Patient was in her usual state of health until about 2 days ago when her shortness of breath became worse. Daughter is the main historian and says that she has had some overall worsening shortness of breath for about 2-3 weeks. Almost about a month ago she had taken an antibiotic course and was started on steroids, namely 10 mg of prednisone, per the daughter. Says that the patient's symptoms did improve at that time transiently; unfortunately began to worsen 2 days ago. Denies any runny nose or increased productive coughing. Daughter does report that she increase her nebulizer treatments to about 2-3 times a day with just transient relief and unfortunately her symptoms would occur prompting them to come to the emergency room. She states that the patient has had intermittent lower extreme edema that responds to leg elevation but this is not any worse than baseline. Daughter denies the patient ever requiring home oxygen in the past. CBC/BMP: 02/19/17 0832 02/21/17 0946 Significant Findings Laboratory Tests Test 02/19/17 08:32 02/20/17 06:25 02/21/17 09:46 White Blood Count 11.1 TH/MM3 (4.0-11.0) Red Blood Count 3.87 MIL/MM3 (4.00-5.30) Hemoglobin 11.1 GM/DL (11.6-15.3) Hematocrit 33.1 % (35.0-46.0) Neutrophils (%) (Auto) 73.5 % (16.0-70.0) Basophils (%) (Auto) 3.9 % (0.0-2.0) Neutrophils # (Auto) 8.1 TH/MM3 (1.8-7.7) Basophils # (Auto) 0.4 TH/MM3 (0-0.2) Blood Urea Nitrogen 23 MG/DL (7-18) 34 MG/DL (7-18) 51 MG/DL (7-18) Creatinine 1.10 MG/DL (0.50-1.00) 1.30 MG/DL (0.50-1.00) 1.50 MG/DL (0.50-1.00) Calcium Level 8.4 MG/DL (8.5-10.1) 8.2 MG/DL (8.5-10.1) 8.4 MG/DL (8.5-10.1) Estimat Glomerular Filtration Rate 47 ML/MIN (>89) 39 ML/MIN (>89) 33 ML/MIN (>89) B-Type Natriuretic Peptide 994 PG/ML (0-100) Random Glucose 189 MG/DL (74-106) 189 MG/DL (74-106) Magnesium Level 2.6 MG/DL (1.5-2.5) Potassium Level 3.4 MEQ/L (3.5-5.1) Chloride Level 97 MEQ/L (98-107) Carbon Dioxide Level 32.1 MEQ/L (21.0-32.0) Hospital Course Patient was admitted, started on IV steroids. Her symptoms improved over the next 48 hours. Her echocardiogram report showed intact EF of 50% but did demonstrate moderate to severe aortic stenosis. Patient and daughter were counseled that she would need to get this evaluated as an outpatient by cardiology to see if this needs to be repaired. Electrophysiology also evaluated some dysrhythmia on her telemetry strips which turned out to be aberrancy as opposed to V. tach and recommended no further workup since the patient did have a relatively non-impressive cardiac catheterization 10 months ago. The patient's stage set designer was also contacted, Dr. Carranza, and he recommended that the patient do close follow-up outpatient with them. Patient daughter were counseled to follow-up in the clinic as well regarding her potassium and kidney levels since she is on Lasix. The daughter was educated informed that the swelling that the patient might experience intermittently on her left lower leg could be from possible fluid overload from her aortic stenosis and/or her bad lung disease. Patient has met maximum benefit from hospitalization and is clinically stable for discharge. Daughter stated that the patient already has home health. Pt Condition on Discharge: Stable Discharge Disposition: Discharge Home Discharge Time: > 30 minutes Discharge Instructions DIET: Follow Instructions for: Heart Healthy Diet Activities you can perform: Weight Bearing as Ros, See Additionl Instruction Other Activity Instructions: Use home assistive devices if used prior to admission Follow up Referrals: Cardiology - 1 Week Pulmonology - 02/24/17 with Mulugeta Carranza MD New Medications: Aspirin DR (Aspirin EC) 81 Mg Tabdr 81 MG PO DAILY for bloot clot prevention, #30 TAB 0 Refills Dextromethorphan-Guaifenesin ER 12 HR (Mucinex DM Maximum Strength) 60-1,200 Mg Tab 1 TAB PO BID PRN for CHEST CONGESTION AND/OR COUGH, #60 TAB 0 Refills Levofloxacin (Levofloxacin) 250 Mg Tablet 250 MG PO DAILY for Infection, #10 TAB 0 Refills Prednisone (Prednisone) 10 Mg Tab 10 MG PO DAILY for lung disease, #75 TAB 0 Refills 5 tabs po for 5 days 4 tabs po for 5 d 3 tabs po for 5 d 2 tabs po for 5 d 1 tab po for 5 d Continued Medications: Albuterol Neb (Albuterol Neb) 2.5 Mg/0.5 Ml Neb 2.5 MG NEB Q4HR NEB PRN for WHEEZING, EA Note: The Albuterol Sulfate Inhalation Solution is concentrated and must be diluted. Read complete instructions carefully before using. Alprazolam (Xanax) 0.5 Mg Tab 0.5 MG PO Q6H PRN for ANXIETY, TAB 0 Refills Atorvastatin (Lipitor) 10 Mg Tab 10 MG PO DAILY for Cholesterol Management, #30 TAB 0 Refills Citalopram (Celexa) 20 Mg Tab 20 MG PO DAILY, #30 TAB Furosemide (Furosemide) 20 Mg Tab 20 MG PO DAILY, #30 TAB 0 Refills Levothyroxine (Synthroid) 50 Mcg Tab 50 MCG PO DAILY@06, #30 TAB Potassium Chloride ER (Klor-Con 10) 10 Meq Tab 10 MEQ PO DAILY for hypokalemia, #30 TAB Telmisartan-Hydrochlorothiazide (Telmisartan-Hydrochlorothiazide) 80-12.5 Mg Tab 0.5 TAB PO DAILY PRN for SBP>160, DBP>90, #30 TAB 0 Refills Tramadol (Tramadol) 50 Mg Tab 50 MG PO Q8H PRN for PAIN, TAB 0 Refills Discontinued Medications: Aspirin (Aspirin) 325 Mg Tab 325 MG PO DAILY, #30 TAB 0 Refills Prednisone (Prednisone) 10 Mg Tab 10 MG PO DAILY, TAB 0 Refills Mathieu Mendoza MD Feb 21, 2017 16:55
[2017-02-21] MEDS ORDERED: LEVO250T7 PO (16:56)
[2017-02-21] MEDS ORDERED: RESP: ACETYLCYSTEINE 10% 30 ML NEB NEB ONE (17:00)
[2017-02-21] MEDS ORDERED: methylPREDNISolone SOD SUCC 125 MG/2 ML VIAL IV PUSH ONE (17:00)
[2017-02-21] MEDS ORDERED: DEXT1TAB18 PO (17:29)
--- NOTE | 2017-02-23 21:16 | EKG ---
Date Performed: 02/21/2017 Time Performed: 09:56:44 PTAGE: 89 years EKG: SINUS TACHYCARDIA WITH OCCASIONAL VENTRICULAR PREMATURE COMPLEXES WITH FREQUENT SUPRAVENTRI CULAR PREMATURE COMPLEXES LEFT VENTRICULAR HYPERTROPHY AND ST-T CHANGE ABNORMAL ECG PREVIOUS TRACING : 09/15/2016 12.26 DOCTOR: Issa Pedersen Interpretating Date/Time 02/23/2017 21:04:44
== END 2017-02-21 18:15 | disposition home or self-care (01) | DRG 190 ==
LOC: PHED 07:08 → PHEDA 10:50 → OBSVTOIN 11:16 → PH3A 16:35
PROVIDERS: ADMIT Hospitalist; ATTEND Hospitalist
DX: J44.1 Chronic obstructive pulmonary disease with (acute) exacerbation (principal); I11.0 Hypertensive heart disease with heart failure; I50.23 Acute on chronic systolic (congestive) heart failure; I35.0 Nonrheumatic aortic (valve) stenosis; Z77.22 Contact with and (suspected) exposure to environmental tobacco smoke (acute) (chronic); R09.02 Hypoxemia; E03.9 Hypothyroidism, unspecified; F41.9 Anxiety disorder, unspecified
CPT/HCPCS: 71010; 71020; 80048; 83735; 83880; 85025; 87804; 93005; 93306; 94640; 94664; J0456; J0696; J1650; J1940; J2930; J7050; J7608; J7613

== ENCOUNTER 2017-04-19 21:36 | Emergency (ER) | payer MEDICARE ==
[~2017-04-19] VITALS: Ht 152.4 cm; Wt 52.0 kg
[~2017-04-19 21:36] MED LIST changes: -ASPI325T PO; +ASPI81TA23 PO; +DEXT1TAB18 PO; -HYDR-3516 PO; +KLOR10TA PO; +LEVO250T7 PO; -POTA-243 PO; +PRED10 PO; +TELM1TAB4 PO; +TRAM50TA PO; -TYLE325T PO
[2017-04-19 21:42] VITALS: BP 109/77; PULSE 84; RESP 18; TEMP 99.1; O2SAT 95
[2017-04-19] MEDS ORDERED: TELM1TAB4 PO (21:49)
[2017-04-19] MEDS ORDERED: SODIUM CHLORIDE 0.9% FLUSH 10 ML FLUSH IVF PRN (22:00)
[2017-04-19] MEDS ORDERED: ACETAMINOPHEN 325 MG TAB PO ONE (22:00)
[2017-04-19 22:09] LABS: AUTOMATED NEUTROPHIL # 6.1 TH/MM3 (1.8-7.7); BASOPHIL % 0.3 % (0.0-2.0); EOSINOPHIL # 0.1 TH/MM3 (0-0.4); EOSINOPHIL % 1.6 % (0.0-4.0); HEMATOCRIT 30.5 % (35.0-46.0); HEMOGLOBIN 10.1 GM/DL (11.6-15.3); LYMPH % 22.7 % (9.0-44.0); MEAN CELL VOLUME 86.3 FL (80.0-100.0); MEAN CORPUSCULAR HEMOGLOBIN 28.6 PG (27.0-34.0); MEAN CORPUSCULAR HGB CONC 33.2 % (32.0-36.0); MEAN PLATELET VOLUME 8.3 FL (7.0-11.0); MONO % 7.3 % (0.0-8.0); MONOCYTE # 0.6 TH/MM3 (0-0.9); NEUT % 68.1 % (16.0-70.0); PLATELET COUNT 217 TH/MM3 (150-450); RED BLOOD COUNT 3.53 MIL/MM3 (4.00-5.30); RED CELL DISTRIBUTION WIDTH 18.2 % (11.6-17.2); WHITE BLOOD COUNT 8.8 TH/MM3 (4.0-11.0)
[2017-04-19 22:16] VITALS: O2SAT 95
[2017-04-19 22:17] LABS: CALCIUM 8.5 MG/DL (8.5-10.1)
[2017-04-19 22:18] LABS: BICARBONATE 30.6 MEQ/L (21.0-32.0); MAGNESIUM 2.5 MG/DL (1.5-2.5)
[2017-04-19 22:21] LABS: CREATININE 1.2 MG/DL (0.50-1.00)
[2017-04-19 22:22] LABS: INTERNATIONAL NORMALIZED RATIO 1.1 RATIO; PROTHROMBIN TIME - PATIENT 10.7 SEC (9.8-11.6)
[2017-04-19 22:26] LABS: TROPONIN I 0.03 NG/ML (0.02-0.05)
[2017-04-19 22:27] VITALS: BP 150/74; PULSE 84; RESP 18; O2SAT 95
--- NOTE | 2017-04-19 22:34 | PD ---
HPI . Possible chest pain Chief Complaint: Chest Pain Time Seen by Provider: 21:49 Travel History International Travel<30 days: No Contact w/Intl Traveler<30days: No Traveled to known affect area: No History of Present Illness HPI This is a patient with dementia who is brought in by her daughter because the patient requested that the daughter brought her left arm tonight. This occurred at 8:55 PM. Approximately 15 minutes later, the patient asked the daughter to right forearm began. The patient's daughter checked her blood pressure and found to be high. The patient was given morphine for her blood pressure medication. The daughter also gave her aspirin 162 mg orally. The daughter then brought her to the hospital for evaluation of possible heart attack. She has had no apparent shortness of breath. No diaphoresis. No vomiting. 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 It has never been biopsied because of her advanced age. The daughter states that the band leader recommended hospice care about a urinary catheter. The family declined. They have another appointment with pulmonology next week. The daughter reports that the family intends to make some "big decisions" following this appointment. I have asked the daughter how aggressive they would want to be with the patient. She is unsure. She states that she would like to know what the patient is having a heart attack. The patient has aortic stenosis. This has not been addressed because of concerns of anesthesia with her underlying pulmonary issues. She has a history of COPD. She has a mass in her left lung. She has severe aortic stenosis and cardiomyopathy. She has intermittent atrial fibrillation and congestive heart failure. PFSH Past Medical History Hx Anticoagulant Therapy: Yes (BABY ASA ) Arthritis: No Asthma: No Atrial Fibrillation: Yes Autoimmune Disease: No Anxiety: Yes Depression: Yes Heart Rhythm Problems: No Cancer: No Cardiovascular Problems: Yes (IVC FILTER; HTN; ) High Cholesterol: No Chemotherapy: No Chest Pain: No Congestive Heart Failure: Yes COPD: Yes Cerebrovascular Accident: No Dementia: Yes Diabetes: No Diminished Hearing: No Endocrine: Yes Gastrointestinal Disorders: No GERD: No Glaucoma: No Genitourinary: No Hepatitis: No Hiatal Hernia: No Hypertension: Yes Immune Disorder: No Implanted Vascular Access Dvce: No Kidney Stones: No Medical other: Yes (SINUSITIS) Musculoskeletal: Yes Neurologic: No Psychiatric: Yes Reproductive: No Respiratory: Yes (some terminal lung disorder) Immunizations Current: Yes Migraines: No Pneumonia: Yes Radiation Therapy: No Renal Failure: No Seizures: No Sickle Cell Disease: No Sleep Apnea: No Thyroid Disease: Yes (Hypo-) Ulcer: No Tetanus Vaccination: < 5 Years Influenza Vaccination: Yes Menopausal: Yes Past Surgical History Abdominal Surgery: No AICD: No Arteriovenous Shunt: No Cardiac Surgery: No Ear Surgery: No Endocrine Surgery: No Eye Surgery: Yes Genitourinary Surgery: No Gynecologic Surgery: No Insulin Pump: No Joint Replacement: No Neurologic Surgery: No Oral Surgery: No Pacemaker: No Thoracic Surgery: Yes (thoracentesis) Other Surgery: Yes Social History Alcohol Use: No (Rarely) Tobacco Use: No Substance Use: No Allergies-Medications (Allergen,Severity, Reaction): Coded Allergies: No Known Allergies (Verified Adverse Reaction, Unknown, 04/19/17) Reported Meds & Prescriptions Reported Meds & Active Scripts Active Prednisone 10 Mg Tab 10 Mg PO DAILY 5 tabs po for 5 days 4 tabs po for 5 d 3 tabs po for 5 d 2 tabs po for 5 d 1 tab po for 5 d Aspirin EC (Aspirin) 81 Mg Tabdr 81 Mg PO DAILY Klor-Con 10 (Potassium Chloride) 10 Meq Tab 10 Meq PO DAILY Synthroid (Levothyroxine Sodium) 50 Mcg Tab 50 Mcg PO DAILY@06 Celexa (Citalopram Hydrobromide) 20 Mg Tab 20 Mg PO DAILY Reported Telmisartan-Hydrochlorothiazide 80-12.5 Mg Tab 0.5 Tab PO DAILY PRN Furosemide 20 Mg Tab 20 Mg PO DAILY Albuterol Neb (Albuterol Sulfate) 2.5 Mg/0.5 Ml Neb 2.5 Mg NEB Q4HR NEB PRN Note: The Albuterol Sulfate Inhalation Solution is concentrated and must be diluted. Read complete instructions carefully before using. Lipitor (Atorvastatin Calcium) 10 Mg Tab 10 Mg PO DAILY Xanax (Alprazolam) 0.5 Mg Tab 0.5 Mg PO Q6H PRN Review of Systems ROS Limitations: Poor Historian Physical Exam Narrative GENERAL: Pleasantly demented elderly patient who does not appear to be in any distress. When asked why she is here tonight, she looks at her daughter. SKIN: warm/dry. Good color. HEAD: Normocephalic. Atraumatic. EYES: Pupils equal and round. No scleral icterus. No injection or drainage. ENT: No nasal bleeding or discharge. Mucous membranes pink and moist. NECK: Trachea midline. Full range of motion without pain.. CARDIOVASCULAR: Regular rate and rhythm. RESPIRATORY: No accessory muscle use. Clear to auscultation. Breath sounds equal bilaterally. Positive chest wall tenderness. GASTROINTESTINAL: Abdomen soft. Nontender. Bowel sounds present. Nondistended. MUSCULOSKELETAL: No obvious deformities. NEUROLOGICAL: Awake and alert. No obvious cranial nerve deficits. Motor grossly within normal limits. Normal speech. PSYCHIATRIC: Appropriate mood and affect; insight and judgment normal. Data Data Last Documented VS Vital Signs Date Time Temp Pulse Resp B/P (MAP) Pulse Ox O2 Delivery O2 Flow Rate FiO2 04/19/17 22:27 84 18 150/74 (99) 95 Room Air 04/19/17 21:42 99.1 Orders Orders Electrocardiogram (04/19/17 21:44) Basic Metabolic Panel (Bmp) (04/19/17 21:58) Complete Blood Count With Diff (04/19/17 21:58) Magnesium (Mg) (04/19/17 21:58) Prothrombin Time / Inr (Pt) (04/19/17 21:58) Act Partial Throm Time (Ptt) (04/19/17 21:58) Troponin I (04/19/17 21:58) Chest, Single Ap (04/19/17 21:58) Ecg Monitoring (04/19/17 21:58) Iv Access Insert/Monitor (04/19/17 21:58) Oximetry (04/19/17 21:58) Sodium Chloride 0.9% Flush (Ns Flush) (04/19/17 22:00) Acetaminophen (Tylenol) (04/19/17 22:00) Labs Laboratory Tests Test 04/19/17 22:00 White Blood Count 8.8 TH/MM3 Red Blood Count 3.53 MIL/MM3 Hemoglobin 10.1 GM/DL Hematocrit 30.5 % Mean Corpuscular Volume 86.3 FL Mean Corpuscular Hemoglobin 28.6 PG Mean Corpuscular Hemoglobin Concent 33.2 % Red Cell Distribution Width 18.2 % Platelet Count 217 TH/MM3 Mean Platelet Volume 8.3 FL Neutrophils (%) (Auto) 68.1 % Lymphocytes (%) (Auto) 22.7 % Monocytes (%) (Auto) 7.3 % Eosinophils (%) (Auto) 1.6 % Basophils (%) (Auto) 0.3 % Neutrophils # (Auto) 6.1 TH/MM3 Lymphocytes # (Auto) 2.0 TH/MM3 Monocytes # (Auto) 0.6 TH/MM3 Eosinophils # (Auto) 0.1 TH/MM3 Basophils # (Auto) 0.0 TH/MM3 CBC Comment DIFF FINAL Differential Comment Prothrombin Time 10.7 SEC Prothromb Time International Ratio 1.1 RATIO Activated Partial Thromboplast Time 23.1 SEC Blood Urea Nitrogen 21 MG/DL Creatinine 1.20 MG/DL Random Glucose 149 MG/DL Calcium Level 8.5 MG/DL Magnesium Level 2.5 MG/DL Sodium Level 138 MEQ/L Potassium Level 3.7 MEQ/L Chloride Level 101 MEQ/L Carbon Dioxide Level 30.6 MEQ/L Anion Gap 6 MEQ/L Estimat Glomerular Filtration Rate 42 ML/MIN Troponin I 0.03 NG/ML MDM Medical Decision Making Medical Screen Exam Complete: Yes Emergency Medical Condition: Yes Medical Record Reviewed: Yes (this patient has multiple previous medical records. Pertinent findings included a CT on 05/03/16 which was reportedly stable. She has a consolidation on the left which has been relatively stable for a number of years. She also has had previous elevated troponins which have been evaluated by cardiology and which have been felt to be secondary to chronic renal insufficiency and her cardiomyopathy.) Interpretation(s) EKG shows a left bundle branch block. She has a sinus rhythm. EKG is unchanged from previous. Differential Diagnosis Differential diagnosis of chest pain includes but is not limited to musculoskeletal pain, pulmonary embolism, acute coronary syndrome, pneumonia, pleurisy Narrative Course This is an elderly, demented lady who presents with possible chest pain. It doesn't sound like she would be a candidate for aggressive treatment. I have ordered Tylenol for her pain. CBC & BMP Diagram 04/19/17 22:00 Calcium Level 8.5, Magnesium Level 2.5 trop 0.03 CXR>>No significant interval change from prior radiograph of 02/21/2017. Prominent left lung opacity/consolidation unchanged along with perihilar right lung opacity. The chest x-ray was independently viewed by me. This patient's most likely diagnosis is musculoskeletal pain. She did have tenderness to palpation. I have recommended treatment of pain with Tylenol. Diagnosis Primary Impression: Chest pain Qualified Codes: R07.9 - Chest pain, unspecified Patient Instructions: Chest Pain (DC), General Instructions Disposition: 01 DISCHARGE HOME Condition: Stable Louise Hadley MD Apr 19, 2017 22:34
--- NOTE | 2017-04-19 22:46 | RADRPT ---
EXAM DATE/TIME: 04/19/2017 22:23 [facility] COMPARISON: CHEST PA & LAT, February 21, 2017, 15:09. CHEST SINGLE AP, February 19, 2017, 8:14. INDICATIONS : Chest pain. MEDICAL HISTORY : Hypertension. Chronic obstructive pulmonary disease. Hypothyroidism.Dementia. Congestive heart f ailure. Anticoagulant. therapy. Osteoporosis. Pneumonia. Blood transfusion. SURGICAL HISTORY : Thoracentesis. Left hip repair. ENCOUNTER: Initial ACUITY: 1 day PAIN SCORE: 7/10 LOCATION: Bilateral chest FINDINGS: Single AP view of the chest. Prominent confluent left lung opacity unchanged. Mild right perihilar op acity unchanged. No evidence of pneumothorax. Possible small left pleural effusion. Calcified tortuou s thoracic aorta unchanged. CONCLUSION: No significant interval change from prior radiograph of 02/21/2017. Prominent left lung opacity/conso lidation unchanged along with perihilar right lung opacity. Ruel Payton MD on April 19, 2017 at 22:43 Board Certified Radiologist. This report was verified electronically.
[2017-04-19 22:56] VITALS: BP 129/75
--- NOTE | 2017-04-20 21:43 | EKG ---
Date Performed: 04/19/2017 Time Performed: 21:44:30 PTAGE: 89 years EKG: Sinus rhythm WITH OCCASIONAL SUPRAVENTRICULAR PREMATURE COMPLEXES LEFT BUNDLE BRANCH BLOCK ABNORMAL ECG Compared to the PREVIOUS TRACING LBBB now present DOCTOR: Fara Crenshaw Interpretating Date/Time 04/20/2017 21:41:56
== END 2017-04-19 23:06 | disposition home or self-care (01) ==
LOC: PHED 21:36
DX: R07.9 Chest pain, unspecified (principal); F03.90 Unspecified dementia, unspecified severity, without behavioral disturbance, psychotic disturbance, mood disturbance, and anxiety; I44.7 Left bundle-branch block, unspecified; I35.0 Nonrheumatic aortic (valve) stenosis; J44.9 Chronic obstructive pulmonary disease, unspecified; R91.8 Other nonspecific abnormal finding of lung field; I42.9 Cardiomyopathy, unspecified; I11.0 Hypertensive heart disease with heart failure; I50.9 Heart failure, unspecified
CPT/HCPCS: 71010; 80048; 83735; 84484; 85025; 85610; 85730; 93005